=== PATIENT | male | born 1970 | race Two or more races ===

== ENCOUNTER 2020-05-29 19:55 | Emergency (ER) | payer OTHER, SELFPAY ==
[2020-05-29 20:09] VITALS: BP 153/90; PULSE 102; RESP 18; TEMP 36.9; O2SAT 99; BMI 26.4
[2020-05-29 21:14] VITALS: BP 127/85; PULSE 93; RESP 16; O2SAT 99
[2020-05-29 21:23] LABS: Glucose Urine UA NEG (NEG); Leukocyte Esterase Urine NEG (NEG); Nitrite Urine NEG (NEG); Specific Gravity - Urine 1.015 (1.005-1.025); Urine Blood TRACE (NEG); Urine Ketones NEG (NEG); Urine Protein NEG (NEG-TRACE)
--- NOTE | 2020-05-29 21:36 | ED_ITS ---
HPI - Male Genitourinary General Chief complaint: Abdominal Pain Stated complaint: groin pain Time Seen by Provider: 05/29/20 21:36 History of Present Illness HPI Narrative: This is a 49-year-old male who presents with 2-3 days of suprapubic discomfort not associated with penile discharge, fevers, chills, nausea, vomiting, scrotal discomfort, changes in urinary stream, or diarrhea. In addition, patient denies any history of diverticulosis or diverticulitis. Related Data Home Medications Medication Instructions Recorded Confirmed aspirin 81 mg PO DAILY 05/29/20 05/29/20 ezetimibe 10 mg PO DAILY 05/29/20 05/29/20 pravastatin 40 mg PO DAILY 05/29/20 05/29/20 Allergies Allergy/AdvReac Type Severity Reaction Status Date / Time rosuvastatin [Crestor] Allergy Unknown myalgias Verified 08/31/18 00:00 Review of Systems Review of Systems: Pertinent positives and negatives as stated in HPI 10 point review of systems is otherwise negative. [facility] Past Medical History Source: nursing notes reviewed Medical History High cholesterol Social History Social History Alcohol intake: never Smoking Status: Never smoker Use of substances other than those prescribed or required for medical reasons: No Advance Directives: No Advance Directives Information Provided: No Physical Exam Vital Signs: Vital Signs: Vital Signs Temp Pulse Resp BP Pulse Ox 05/29/20 22:39 98.2 F 95 18 124/80 98 05/29/20 21:14 93 16 127/85 99 05/29/20 20:09 98.5 F 102 H 18 153/90 H 99 Body Mass Index 26.4 VITAL SIGNS: Reviewed. GENERAL: Well developed, well nourished, in no acute distress. HEAD: Normocephalic/atraumatic, EYES: PERRLA, EOMI intact without pain, no nystagmus/pallor/icterus noted EARS: Ext canals without abnormality, TMs non-bulging and non-erythematous NOSE: Nares patent bilateral OROPHARYNX: no oral lesions noted, posterior pharynx clear and non-erythematous without noted tonsillar enlargement/erythema/exudates NECK: Supple, no adenopathy LUNGS: Normal breath sounds. No adventitious sounds or accessory muscle use. SpO2<99%> CARDIOVASCULAR: Regular rate and rhythm without noted murmurs, no JVD or lower extremity edema. ABDOMEN: Soft, non-tender, non-distended with bowel sounds. No rigidity. No guarding. No palpable masses or hernias noted MUSCULOSKELETAL: No tenderness, deformities, or effusions noted on gross inspection. EXTREMITIES: No cyanosis, clubbing or edema. SKIN: Inspection of the skin reveals no rashes, ulcerations, jaundice, pallor, or petechiae. NEUROLOGIC: Alert and oriented x 4. Strength and sensation to light touch were grossly intact x 4. Course Course Course Narrative: this is a 49-year-old male with history and clinical presentation suggestive of possible cystitis but doubt STI or intra-abdominal infection. On review of urinalysis it was negative for any evidence of infection and lab work was correspondingly negative for any acute findings as well. All results and findings were discussed with the patient at bedside and he was encouraged to follow up with his primary care provider for further outpa tient evaluation. [facility] - Male Genitourinary Lab Data Result diagrams: 05/29/20 22:45 05/29/20 22:45 Labs: Lab Results 05/29/20 05/29/20 05/29/20 Range/Units 21:15 22:45 22:45 WBC 9.2 (4.8-10.8) X10*3/uL RBC 5.44 (4.60-5.80) X10*6/uL Hgb 14.4 (14.0-18.0) g/dl Hct 44.4 (42-52) % MCV 81.6 (80-98) fL MCH 26.5 L (27.0-33.0) pg MCHC 32.4 (31.0-36.0) g/dl RDW 14.5 (11.0-16.0) % Plt Count 215 (160-400) X10*3/uL MPV 11.0 (9.4-12.4) fL Immature Gran % (Auto) 0.2 (0.0-0.4) % Neut % (Auto) 53.6 (45-73) % Lymph % (Auto) 33.7 (20-40) % Clark % (Auto) 8.7 (2-11) % Eos % (Auto) 3.4 (0-4) % Baso % (Auto) 0.4 (0-2) % Lymph # (Auto) 3.1 (1.2-4.9) X10*3/uL Clark # (Auto) 0.8 (0.1-1.2) X10*3/uL Eos # (Auto) 0.3 (0.0-0.4) X10*3/uL Baso # (Auto) 0.0 (0.0-0.2) X10*3/uL Abs Immat Gran (auto) 0.02 (0.00-0.03) X10*3/uL Absolute Neuts (auto) 4.9 (2.0-8.3) X10*3/uL Absolute Nucleated RBC 0.000 (0.0-0.012) X10*3/uL Nucleated RBC % (auto) 0.0 (0.0-0.2) /100WBC Sodium 140 (135-145) mmol/L Potassium 4.2 (3.3-5.1) mmol/l Chloride 104 (96-108) mmol/L Carbon Dioxide 30 H (22-29) mmol/L Anion Gap 10 L (12-20) BUN 12 (9-16) mg/dL Creatinine 0.93 (0.5-1.4) mg/dL Estim Creat Clear Calc 101.2 Estimated GFR > 60 Random Glucose 112 (60-115) mg/dL Calcium 9.5 (8.4-10.2) mg/dL Total Bilirubin 0.2 (0.0-1.0) mg/dL AST 25 (5-37) U/L ALT 33 (0-40) U/L Alkaline Phosphatase 116 (39-117) U/L Total Protein 7.1 (6.5-8.0) g/dL Albumin 4.4 (3.5-5.0) g/dL Urine Color YELLOW Urine Appearance CLEAR Urine pH 6.0 (5.0-8.0) Ur Specific [place] 1.015 (1.005-1.025) Urine Protein NEG (NEG-TRACE) MG/DL Urine Glucose (UA) NEG (NEG) MG/DL Urine Ketones NEG (NEG) MG/DL Urine Blood TRACE (NEG) Urine Nitrite NEG (NEG) Ur Leukocyte Esterase NEG (NEG) Urine RBC 0-2 (0) /HPF Urine WBC 0 (0-4) /HPF Ur Squamous Epith Cells NONE /LPF Urine Bacteria NONE /LPF Discharge Plan Discharge Clinical Impression: Abdominal discomfort Patient Disposition: Home, Self-Care Additional Instructions: The patient and/or family acknowledge understanding of results (as applicable), diagnosis, treatment plan, need for follow up, and symptoms that should prompt a return to the emergency room. Prescriptions: No Action pravastatin 40 mg tablet 40 mg PO DAILY RF: 0 aspirin 81 mg Tablet 81 mg PO DAILY RF: 0 ezetimibe 10 mg tablet 10 mg PO DAILY RF: 0 Referrals: Harinder Fuller MD [Primary Care Provider] - 2 days ( for further evaluation management of suprapubic discomfort)
[2020-05-29 21:47] LABS: Appearance Urine CLEAR; Color Urine YELLOW; RBC Urine 0-2 /HPF (0); WBC Urine 0 /HPF (0-4)
[2020-05-29 22:39] VITALS: BP 124/80; PULSE 95; RESP 18; TEMP 36.8; O2SAT 98
[2020-05-29 22:58] LABS: MANUAL DIFF FLAG NO
[2020-05-29 23:00] LABS: Basophils Percent Auto 0.4 % (0-2); Eosinophils Absolute Auto 0.3 X10*3/uL (0.0-0.4); Eosinophils Percent Auto 3.4 % (0-4); Hematocrit 44.4 % (42-52); Hemoglobin 14.4 g/dl (14.0-18.0); Imm Gran Abs Auto 0.02 X10*3/uL (0.00-0.03); Imm Gran Pct Auto 0.2 % (0.0-0.4); Lymphocytes Absolute Auto 3.1 X10*3/uL (1.2-4.9); Lymphocytes Percent Auto 33.7 % (20-40); Mean Corpuscular HGB Conc 32.4 g/dl (31.0-36.0); Mean Corpuscular Hemoglobin 26.5 pg (27.0-33.0); Mean Corpuscular Volume 81.6 fL (80-98); Monocytes Absolute Auto 0.8 X10*3/uL (0.1-1.2); Monocytes Percent Auto 8.7 % (2-11); Neutrophils Absolute Auto 4.9 X10*3/uL (2.0-8.3); Neutrophils Percent Auto 53.6 % (45-73); Platelet Count 215 X10*3/uL (160-400); Red Blood Count 5.44 X10*6/uL (4.60-5.80); Red Cell Distribution Width 14.5 % (11.0-16.0); White Blood Count 9.2 X10*3/uL (4.8-10.8)
[2020-05-29 23:23] LABS: Alanine Aminotransferase 33 U/L (0-40); Albumin Level 4.4 g/dL (3.5-5.0); Alkaline Phosphatase 116 U/L (39-117); Anion Gap 10 (12-20); Aspartate Amino Transferase 25 U/L (5-37); Bilirubin Total 0.2 mg/dL (0.0-1.0); Blood Urea Nitrogen 12 mg/dL (9-16); Calcium 9.5 mg/dL (8.4-10.2); Carbon Dioxide 30 mmol/L (22-29); Chloride 104 mmol/L (96-108); Creatinine Clr Calc Pharmacy 101.2; Estimated Glomerular Filt Rate > 60; Glucose Random 112 mg/dL (60-115); Potassium 4.2 mmol/l (3.3-5.1); Sodium 140 mmol/L (135-145); Total Protein 7.1 g/dL (6.5-8.0)
== END 2020-05-30 00:08 | disposition home or self-care (01) ==
PROVIDERS: Emergency Provider Student in an Organized Health Care Education/Training Program; PCP Internal Medicine
DX: R10.9 Unspecified abdominal pain (principal); R36.9 Urethral discharge, unspecified; Z79.899 Other long term (current) drug therapy
CPT/HCPCS: 36415; 80053; 81001; 85025; 99283; 99284

== ENCOUNTER 2020-06-08 06:37 | Outpatient (REF) | payer OTHER, SELFPAY ==
[2020-06-08 07:01] LABS: MANUAL DIFF FLAG NO
[2020-06-08 07:04] LABS: Basophils Percent Auto 0.3 % (0-2); Eosinophils Absolute Auto 0.4 X10*3/uL (0.0-0.4); Hematocrit 44.9 % (42-52); Hemoglobin 14.6 g/dl (14.0-18.0); Imm Gran Abs Auto 0.04 X10*3/uL (0.00-0.03); Imm Gran Pct Auto 0.4 % (0.0-0.4); Lymphocytes Absolute Auto 3.4 X10*3/uL (1.2-4.9); Mean Corpuscular HGB Conc 32.5 g/dl (31.0-36.0); Mean Corpuscular Hemoglobin 26.5 pg (27.0-33.0); Mean Corpuscular Volume 81.6 fL (80-98); Mean Platelet Volume 10.5 fL (9.4-12.4); Monocytes Absolute Auto 0.7 X10*3/uL (0.1-1.2); Monocytes Percent Auto 7.7 % (2-11); Neutrophils Absolute Auto 4.5 X10*3/uL (2.0-8.3); Neutrophils Percent Auto 49.6 % (45-73); Platelet Count 210 X10*3/uL (160-400); Red Cell Distribution Width 14.3 % (11.0-16.0)
[2020-06-08 07:29] LABS: Alanine Aminotransferase 28 U/L (0-40); Albumin Level 4.1 g/dL (3.5-5.0); Alkaline Phosphatase 106 U/L (39-117); Anion Gap 12 (12-20); Aspartate Amino Transferase 21 U/L (5-37); Bilirubin Total 0.5 mg/dL (0.0-1.0); Blood Urea Nitrogen 18 mg/dL (9-16); Calcium 8.5 mg/dL (8.4-10.2); Carbon Dioxide 26 mmol/L (22-29); Chloride 104 mmol/L (96-108); Cholesterol 162 mg/dL; Estimated Glomerular Filt Rate > 60; Glucose Fasting 106 mg/dL (60-99); HDL Cholesterol 30 mg/dL; LDL Cholesterol Calculated 79 mg/dl; Potassium 4.1 mmol/l (3.3-5.1); Sodium 138 mmol/L (135-145); Total Protein 6.6 g/dL (6.5-8.0); Triglycerides 267 mg/dL
[2020-06-08 07:46] LABS: Glucose Urine UA NEG (NEG); Leukocyte Esterase Urine NEG (NEG); Nitrite Urine NEG (NEG); Specific Gravity - Urine 1.025 (1.005-1.025); UACC Culture Trigger NO; Urine Blood TRACE (NEG); Urine Ketones NEG (NEG); Urine Protein NEG (NEG-TRACE)
[2020-06-08 07:48] LABS: Appearance Urine CLEAR; Color Urine YELLOW
[2020-06-08 07:52] LABS: Prostate Specific Antigen 1.54 ng/mL (<0.05-4.0); TSH reflex Free T4 1.84 mIU/mL (0.32-4.0)
[2020-06-08 08:39] LABS: Mucus Urine 1+ /LPF; Squamous Epithelial Cell Urine TRACE /LPF; WBC Urine 0-2 /HPF (0-4)
== END 2020-06-08 06:38 | disposition home or self-care (01) ==
LOC: HO.LAB 06:37
PROVIDERS: PCP Internal Medicine; Visit Provider Internal Medicine
DX: Z00.00 Encounter for general adult medical examination without abnormal findings (principal); E78.00 Pure hypercholesterolemia, unspecified; R03.0 Elevated blood-pressure reading, without diagnosis of hypertension
CPT/HCPCS: 36415; 80053; 80061; 81001; 81003; 84153; 84443; 85025

== ENCOUNTER 2020-07-18 09:41 | Outpatient (REF) | payer OTHER, SELFPAY ==
--- NOTE | 2020-07-18 10:19 | XR_ITS ---
EXAMINATION: XR FOOT, BILATERAL CLINICAL INFORMATION: Pain in both feet with tenderness. COMPARISON: None TECHNIQUE: Three views right foot. Three views left foot. FINDINGS: RIGHT FOOT: There is a small calcaneal heel and moderate retrocalcaneal enthesophyte spur. The ankle mortise and subtalar joints are normal. No visible acute fracture, dislocation or subluxation seen. The soft tissues are normal. LEFT FOOT: There is no visible acute fracture or dislocation. There are tiny calcaneal heel and a moderate retrocalcaneal enthesophyte is seen. The ankle mortise and subtalar joints are normal. No abnormality is seen involving the metatarsals where the arrow points to. The soft tissues are unremarkable. XR/XR foot RT 2V IMPRESSION: Bilateral moderate retrocalcaneal enthesophytes and small calcaneal heel spurs. There is no visible fracture, dislocation or subluxation. There is no abnormality involving the metatarsals in either foot. The soft tissues are normal. If the patient has specific pain in the metatarsal region and if related to stress fracture, a three-phase bone scan can be performed.
--- NOTE | 2020-07-18 10:19 | XR_ITS ---
EXAMINATION: XR FOOT, BILATERAL CLINICAL INFORMATION: Pain in both feet with tenderness. COMPARISON: None TECHNIQUE: Three views right foot. Three views left foot. FINDINGS: RIGHT FOOT: There is a small calcaneal heel and moderate retrocalcaneal enthesophyte spur. The ankle mortise and subtalar joints are normal. No visible acute fracture, dislocation or subluxation seen. The soft tissues are normal. LEFT FOOT: There is no visible acute fracture or dislocation. There are tiny calcaneal heel and a moderate retrocalcaneal enthesophyte is seen. The ankle mortise and subtalar joints are normal. No abnormality is seen involving the metatarsals where the arrow points to. The soft tissues are unremarkable. XR/XR foot LT min 3V IMPRESSION: Bilateral moderate retrocalcaneal enthesophytes and small calcaneal heel spurs. There is no visible fracture, dislocation or subluxation. There is no abnormality involving the metatarsals in either foot. The soft tissues are normal. If the patient has specific pain in the metatarsal region and if related to stress fracture, a three-phase bone scan can be performed.
[2020-07-18 10:50] LABS: MANUAL DIFF FLAG NO
[2020-07-18 10:56] LABS: Basophils Absolute Auto 0.1 X10*3/uL (0.0-0.2); Basophils Percent Auto 0.7 % (0-2); Eosinophils Absolute Auto 0.4 X10*3/uL (0.0-0.4); Hematocrit 44.6 % (42-52); Hemoglobin 14.5 g/dl (14.0-18.0); Imm Gran Abs Auto 0.02 X10*3/uL (0.00-0.03); Imm Gran Pct Auto 0.2 % (0.0-0.4); Lymphocytes Absolute Auto 2.9 X10*3/uL (1.2-4.9); Lymphocytes Percent Auto 35.1 % (20-40); Mean Corpuscular HGB Conc 32.5 g/dl (31.0-36.0); Mean Corpuscular Hemoglobin 26.5 pg (27.0-33.0); Mean Corpuscular Volume 81.5 fL (80-98); Mean Platelet Volume 11.5 fL (9.4-12.4); Monocytes Absolute Auto 0.6 X10*3/uL (0.1-1.2); Neutrophils Absolute Auto 4.3 X10*3/uL (2.0-8.3); Platelet Count 214 X10*3/uL (160-400); Red Blood Count 5.47 X10*6/uL (4.60-5.80); White Blood Count 8.2 X10*3/uL (4.8-10.8)
[2020-07-18 11:06] LABS: Glucose Urine UA NEG (NEG); Leukocyte Esterase Urine NEG (NEG); Nitrite Urine NEG (NEG); PH 5.5 (5.0-8.0); Specific Gravity - Urine 1.025 (1.005-1.025); Urine Blood TRACE (NEG); Urine Ketones NEG (NEG); Urine Protein NEG (NEG-TRACE)
[2020-07-18 11:15] LABS: Appearance Urine CLEAR; Color Urine YELLOW
[2020-07-18 11:19] LABS: RBC Urine 0-2 /HPF (0); Squamous Epithelial Cell Urine TRACE /LPF; WBC Urine 0-2 /HPF (0-4)
[2020-07-18 11:22] LABS: Alanine Aminotransferase 28 U/L (0-40); Albumin Level 4.2 g/dL (3.5-5.0); Alkaline Phosphatase 102 U/L (39-117); Anion Gap 13 (12-20); Aspartate Amino Transferase 20 U/L (5-37); Bilirubin Total 0.6 mg/dL (0.0-1.0); Blood Urea Nitrogen 16 mg/dL (9-16); Calcium 9.1 mg/dL (8.4-10.2); Carbon Dioxide 24 mmol/L (22-29); Chloride 104 mmol/L (96-108); Cholesterol 168 mg/dL; Estimated Glomerular Filt Rate > 60; Glucose Fasting 104 mg/dL (60-99); HDL Cholesterol 34 mg/dL; LDL Cholesterol Calculated 78 mg/dl; Potassium 4.3 mmol/l (3.3-5.1); Sodium 137 mmol/L (135-145); Total Protein 6.7 g/dL (6.5-8.0); Triglycerides 284 mg/dL
[2020-07-18 11:42] LABS: Prostate Specific Antigen Scr 1.53 ng/mL (<0.05-4.0)
[2020-07-18 11:52] LABS: Erythrocyte Sedimentation Rate 9 MM/HR (0-15)
[2020-07-18 13:17] LABS: Folate 19.1 ng/mL (> or = 4.0); Vitamin B12 663 pg/mL (200-900)
== END 2020-07-18 09:42 | disposition home or self-care (01) ==
LOC: HO.LAB 09:41
PROVIDERS: PCP Internal Medicine; Visit Provider Internal Medicine
DX: M79.671 Pain in right foot (principal); M79.672 Pain in left foot; Z00.00 Encounter for general adult medical examination without abnormal findings; J30.9 Allergic rhinitis, unspecified; F17.200 Nicotine dependence, unspecified, uncomplicated; E78.00 Pure hypercholesterolemia, unspecified; E66.3 Overweight
CPT/HCPCS: 36415; 73620; 73630; 80053; 80061; 81001; 81003; 82607; 82746; 84153; 84443; 85025; 85652

== ENCOUNTER → 2020-08-25 13:29 | Outpatient (BNVA) | payer OTHER, SELFPAY | PROVIDERS: PCP Internal Medicine; Visit Provider Nurse Practitioner Family | DX: Z76.89 Persons encountering health services in other specified circumstances (principal) ==

== ENCOUNTER 2020-10-24 07:46 | Day surgery (SDC) | payer OTHER, SELFPAY ==
[2020-10-18 11:10] VITALS: BMI 27.1
--- NOTE | 2020-10-23 09:55 | HO.ANESPROP2 ---
Documented by User: Sparkle Curry 10/23/20 09:56 HPI - Anesthesia Eval Consult details Narrative: 49yo M for Colonoscopy PMFSH Active Problems Active Problems: All Active Problems (Updated 07/14/20 @ 04:21 by Harinder Fuller MD) Pain in both feet (Acute) Insomnia (Acute) Overweight (BMI 25.0-29.9) (Acute) Smoker (Acute) Elevated blood pressure reading (Acute) Allergic rhinitis (Acute) Pure hypercholesterolemia (Acute) Past Medical History Medical History Allergic rhinitis Elevated blood pressure reading Insomnia Overweight (BMI 25.0-29.9) Pain in both feet Pure hypercholesterolemia Smoker Family History Family History Father No problems noted. Mother No problems noted. Paternal Uncle History of stomach cancer Maternal Aunt Hx of breast cancer Son No problems noted. Surgical History Surgical History History of inguinal hernia repair History of vasectomy Hx of wisdom tooth extraction Social History Social History Household Members: Spouse and Children Alcohol intake: current Alcohol intake frequency: a few times a month Smoking Status: Current every day smoker Tobacco Type: Cigarette Cigarettes Per Day: 10 Years Smoked: 30 Smoked in Last 30 Days: Yes Use of substances other than those prescribed or required for medical reasons: No Advance Directives: No Advance Directives Information Provided: No Advance Directives on File: No Current occupational status: employed 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 [employer] Meds Allergies Allergy/AdvReac Type Severity Reaction Status Date / Time rosuvastatin [Crestor] AdvReac Intermediate myalgias Verified 10/18/20 11:08 Home Medications Medication Instructions Recorded Confirmed Last Taken Type aspirin 81 mg PO DAILY 05/29/20 10/24/20 10/21/20 History ezetimibe 10 mg PO DAILY 05/29/20 10/18/20 05/29/20 History pravastatin 40 mg PO DAILY 05/29/20 10/18/20 05/28/20 History kjcbeuewqtll-rvom-ccwzx acid 1 tab PO DAILY 10/18/20 10/18/20 Unknown History [Centrum] Exam Exam Date and Time: October 23, 2020 0955 Height,Weight and Vital Signs: Height 5 ft 11 in Weight 88.451 kg Assessment and Plan Assessment Anesthesia Assessment: Chart Reviewed Documented by User: Rylee Lowe 10/24/20 09:53 COUNTS INCLUDE 234 BEDS AT THE [facility] Past Medical History Medical History Allergic rhinitis Elevated blood pressure reading Insomnia Overweight (BMI 25.0-29.9) Pain in both feet Pure hypercholesterolemia Smoker Family History Family History Father No problems noted. Mother No problems noted. Paternal Uncle History of stomach cancer Maternal Aunt Hx of breast cancer Son No problems noted. Surgical History Surgical History History of inguinal hernia repair History of vasectomy Hx of wisdom tooth extraction Social History Social History Household Members: Spouse and Children Alcohol intake: current Alcohol intake frequency: a few times a month Smoking Status: Current every day smoker Tobacco Type: Cigarette Cigarettes Per Day: 10 Years Smoked: 30 Smoked in Last 30 Days: Yes Use of substances other than those prescribed or required for medical reasons: No Advance Directives: No Advance Directives Information Provided: No Advance Directives on File: No Current occupational status: employed 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
[2020-10-24 09:14] VITALS: BP 131/79; PULSE 80; RESP 16; TEMP 36.3; O2SAT 99
[2020-10-24] MEDS: Lactated Ringers 1,000 ML 100 ML IVCONT (09:18)
--- NOTE | 2020-10-24 09:39 | MHC.SHP ---
Pre-Procedural Eval Section B Chief Complaint: Screening Details of Present Illness: Colon cancer screening Has had Moderna Covid 19 vaccine both shots. Relevant Family History (Specify if Yes): No Relevant Social History: None Present Medications: see Short Stay Collaborative assessment Medical History: Significant History (Hyperlipidemia) History of Previous Operations: Relevant previous surgery/procedure and date(s) (Inguinal hernia surgery) Allergies: Allergies Allergy/AdvReac Type Severity Reaction Status Date / Time rosuvastatin [Crestor] AdvReac Intermediate myalgias Verified 10/18/20 11:08 Review of Systems Sugical H&P ROS: Negative: Constitution, Cardiovascular, Respiratory, Gastrointestinal and Musculoskeletal Exam Surgical H&P Exam: Normal: HEENT, Normal: Heart, Normal: Lungs, Normal: Extremities, Normal: Abdomen, Normal: Skin and Normal: Neurological Plan Diagnosis/Plan: Unchanged I have reviewed the history and physical and performed a pertinent physical examination on my patient. No changes have occurred unless specified.yes
[2020-10-24 10:07] VITALS: BP 109/68; PULSE 75; RESP 16; TEMP 36.8; O2SAT 98
--- NOTE | 2020-10-24 10:07 | PM.OP ---
Brief Operative Note Date of Service: 10/24/20 Pre-op diagnosis: COLON CANCER SCREENING #1 Post-op diagnosis: other (POLYPS; 1+ INTERNAL HEMORRHOIDS) Procedure: COLONOSCOPY WITH EXCISIONAL POLYPECTOMIES X 2; COLD BX FORCEPS Implants: NONE Surgeon: Darlin Minor MD Anesthesia: MAC (SOVAGO) Estimated blood loss (mL): 5 Pathology: other (HEPATIC FLEXURE, DISTAL TRANSVERSE COLON) Condition: stable Disposition: PACU
[2020-10-24 10:22] VITALS: BP 125/80; PULSE 76; RESP 18; O2SAT 99
--- NOTE | 2020-10-24 12:45 | HO.POSTANES ---
Post Anesthesia Evaluation Post Anesthesia Evaluation Vital Signs: Vital Signs Temp Pulse Resp BP Pulse Ox 10/24/20 10:22 76 18 125/80 99 10/24/20 10:07 98.2 F 75 16 109/68 98 10/24/20 09:14 97.4 F 80 16 131/79 99 Anesthesia: Monitored Mental Status: Awake Pain Control: Satisfactory Nausea/Vomiting: None Hydration: Adequate Anesthesia-Related Issues: No Anes. Related Issues
--- NOTE | 2020-10-24 15:07 | P.CONAN_ITS ---
[facility] Active Problems Active Problems: All Active Problems (Updated 07/14/20 @ 04:21 by Harinder price MD) Pain in both feet (Acute) Insomnia (Acute) Overweight (BMI 25.0-29.9) (Acute) Smoker (Acute) Elevated blood pressure reading (Acute) Allergic rhinitis (Acute) Pure hypercholesterolemia (Acute) Past Medical History Medical History Allergic rhinitis Elevated blood pressure reading Insomnia Overweight (BMI 25.0-29.9) Pain in both feet Pure hypercholesterolemia Smoker Family History Family History Father No problems noted. Mother No problems noted. Paternal Uncle History of stomach cancer Maternal Aunt Hx of breast cancer Son No problems noted. 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[employer] Meds Allergies Allergy/AdvReac Type Severity Reaction Status Date / Time rosuvastatin [Crestor] AdvReac Intermediate myalgias Verified 10/18/20 11:08 Home Medications Medication Instructions Recorded Confirmed Last Taken Type aspirin 81 mg PO DAILY 05/29/20 10/24/20 10/21/20 History ezetimibe 10 mg PO DAILY 05/29/20 10/18/20 05/29/20 History pravastatin 40 mg PO DAILY 05/29/20 10/18/20 05/28/20 History cqzgbrqsljno-mqga-qwbmo acid 1 tab PO DAILY 10/18/20 10/18/20 Unknown History [Centrum] Exam Exam Date and Time: October 24, 2020 1507 Height,Weight and Vital Signs: Height 5 ft 11 in Weight 88.451 kg Last Vital Signs Temp 98.2 F 10/24/20 10:07 Pulse 76 10/24/20 10:22 Resp 18 10/24/20 10:22 BP 125/80 10/24/20 10:22 Pulse Ox 99 10/24/20 10:22 Airway Mallampati Class: II TM Dist: >3cm Neck ROM: Full Heart: RRR Lungs: CTA
--- NOTE | 2020-10-29 13:17 | W.PM.OPN ---
Operative Note Operative Note Date of Service: 10/24/20 Narrative: Pre-op diagnosis: COLON CANCER SCREENING #1 Post-op diagnosis: COLON POLYPS; 1+ INTERNAL HEMORRHOIDS Procedure: COLONOSCOPY WITH EXCISIONAL POLYPECTOMIES X 2; COLD BX FORCEPS Implants: NONE Surgeon: Darlin Minor MD Anesthesia: MAC (SOVAGO) FINDINGS: RENETTA:Prostate normal to digital palpation. Adult slim colonoscope was introduced without difficulty. Scope was navigated through rectosigmoid, descending, transverse, and ascending colon down into the cecum. Appendiceal orifice and ileocecal valve were seen. PREP: GOOD to EXCELLENT. Scope was slowly withdrawn. Diminutive polyp was removed from Hepatic Flexure and the second from the region of the distal transverse colon. No additional lesions were identified. ARV was clear. 1+Internal Hemorrhoids noted as scope was removed. Estimated blood loss (mL): 5 Pathology: other (HEPATIC FLEXURE-TUBULAR ADENOMA; DISTAL TRANSVERSE COLON--LYMPHOID TISSUE) Condition: stable Disposition: PACU PLAN: REPEAT SCREENING IN 5 YEARS--1 TUBULAR ADENOMA.
== END 2020-10-24 11:05 | disposition home or self-care (01) ==
PROVIDERS: PCP Internal Medicine; Visit Provider Internal Medicine Gastroenterology
PROC: 0DJD8ZZ Inspection of Lower Intestinal Tract, Via Natural or Artificial Opening Endoscopic (ICD-10-PCS; CPT 45378; principal; 2020-10-24 09:20)
DX: Z12.11 Encounter for screening for malignant neoplasm of colon (principal); D12.3 Benign neoplasm of transverse colon; K64.8 Other hemorrhoids; J30.9 Allergic rhinitis, unspecified; R03.0 Elevated blood-pressure reading, without diagnosis of hypertension; Z79.899 Other long term (current) drug therapy; Z79.82 Long term (current) use of aspirin; Z88.8 Allergy status to other drugs, medicaments and biological substances; F17.210 Nicotine dependence, cigarettes, uncomplicated
CPT/HCPCS: 45380; 88305

== ENCOUNTER → 2020-11-14 13:34 | Outpatient (BNVA) | payer OTHER, SELFPAY | PROVIDERS: PCP Internal Medicine; Visit Provider Nurse Practitioner Family ==

== ENCOUNTER 2021-03-30 07:59 | Outpatient (REF) | payer OTHER, SELFPAY ==
[2021-03-30 08:42] LABS: MANUAL DIFF FLAG NO
[2021-03-30 09:14] LABS: Basophils Absolute Auto 0.1 X10*3/uL (0.0-0.2); Basophils Percent Auto 0.7 % (0-2); Eosinophils Absolute Auto 0.4 X10*3/uL (0.0-0.4); Eosinophils Percent Auto 4.2 % (0-4); Hemoglobin 14.7 g/dl (14.0-18.0); Imm Gran Abs Auto 0.03 X10*3/uL (0.00-0.03); Imm Gran Pct Auto 0.3 % (0.0-0.4); Lymphocytes Absolute Auto 3.3 X10*3/uL (1.2-4.9); Lymphocytes Percent Auto 35.7 % (20-40); Mean Corpuscular Hemoglobin 25.9 pg (27.0-33.0); Mean Platelet Volume 10.8 fL (9.4-12.4); Monocytes Absolute Auto 0.7 X10*3/uL (0.1-1.2); Monocytes Percent Auto 7.2 % (2-11); Neutrophils Absolute Auto 4.7 X10*3/uL (2.0-8.3); Neutrophils Percent Auto 51.9 % (45-73); Platelet Count 207 X10*3/uL (160-400); Red Blood Count 5.68 X10*6/uL (4.60-5.80); Red Cell Distribution Width 14.5 % (11.0-16.0); White Blood Count 9.1 X10*3/uL (4.8-10.8)
[2021-03-30 09:21] LABS: Glucose Urine UA NEG (NEG); Leukocyte Esterase Urine NEG (NEG); Nitrite Urine NEG (NEG); Specific Gravity - Urine 1.025 (1.005-1.025); Urine Blood NEG (NEG); Urine Ketones NEG (NEG); Urine Protein NEG (NEG-TRACE)
[2021-03-30 09:35] LABS: Appearance Urine CLEAR; Color Urine YELLOW
[2021-03-30 09:37] LABS: Alanine Aminotransferase 31 U/L (0-40); Albumin Level 4.3 g/dL (3.5-5.0); Alkaline Phosphatase 95 U/L (39-117); Anion Gap 13 (12-20); Aspartate Amino Transferase 22 U/L (5-37); Bilirubin Total 0.5 mg/dL (0.0-1.0); Blood Urea Nitrogen 15 mg/dL (9-16); Calcium 9.4 mg/dL (8.4-10.2); Carbon Dioxide 23 mmol/L (22-29); Chloride 108 mmol/L (96-108); Cholesterol 176 mg/dL; Estimated Glomerular Filt Rate > 60; Glucose Fasting 99 mg/dL (60-99); HDL Cholesterol 31 mg/dL; LDL Cholesterol Calculated 107 mg/dl; Potassium 4.3 mmol/L (3.3-5.1); Sodium 140 mmol/L (135-145); Total Protein 6.8 g/dL (6.5-8.0); Triglycerides 190 mg/dL
== END 2021-03-30 08:00 | disposition home or self-care (01) ==
LOC: HO.LAB 07:59
PROVIDERS: PCP Internal Medicine; Visit Provider Internal Medicine
DX: I10 Essential (primary) hypertension (principal); E78.00 Pure hypercholesterolemia, unspecified
CPT/HCPCS: 36415; 80053; 80061; 81003; 84443; 85025

== ENCOUNTER 2021-05-16 12:05 | Outpatient (REF) | payer OTHER, SELFPAY ==
--- NOTE | ~2021-05-16 | XR_ITS ---
EXAMINATION: XR SHOULDER, LEFT CLINICAL INFORMATION: Anesthesia of skin. COMPARISON: None TECHNIQUE: AP external rotation, Grashey, scapular Y, and axillary views of the left shoulder. FINDINGS: Bony alignment and mineralization are normal. The glenohumeral joint is intact. There is peripheral osteophyte formation of the inferior articular margin of the glenohumeral joint. The acromioclavicular and coracoclavicular intervals are normal. There is no fracture or dislocation. No soft tissue calcifications or foreign body is seen. There is no left pneumothorax. 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 No fracture or dislocation is seen.
== END 2021-05-16 12:06 | disposition home or self-care (01) ==
LOC: HO.XRAY 12:05
PROVIDERS: PCP Internal Medicine; Visit Provider Internal Medicine
DX: R20.0 Anesthesia of skin (principal)
CPT/HCPCS: 73030

== ENCOUNTER → 2021-06-05 13:26 | Outpatient (BNVA) | payer OTHER, SELFPAY | PROVIDERS: Visit Provider Nurse Practitioner Family ==

== ENCOUNTER 2021-06-27 17:12 | Emergency (ER) | payer OTHER, SELFPAY ==
--- NOTE | ~2021-06-27 | XR_ITS ---
EXAMINATION: XR CHEST CLINICAL INFORMATION: Cough with lung pain COMPARISON: Single view chest 12/21/2017 TECHNIQUE: 2 views of the chest were obtained. FINDINGS: No significant abnormality is noted involving the heart, lungs, mediastinum, bony thorax or soft tissues. XR/XR chest 2V IMPRESSION: Unremarkable examination.
[2021-06-27 17:41] VITALS: BP 151/77; PULSE 89; RESP 20; TEMP 36.8; O2SAT 97; BMI 25.7
--- NOTE | 2021-06-27 18:31 | ECG_ITS ---
Test Reason : dyspena Blood Pressure : / mmHG Vent. Rate : 084 BPM Atrial Rate : 084 BPM P-R Int : 154 ms QRS Dur : 096 ms QT Int : 374 ms P-R-T Axes : 042 056 070 degrees QTc Int : 441 ms Normal sinus rhythm Normal ECG When compared with ECG of 21-DEC-2017 17:00, No significant change was found Referred By: Sushma Pike Electronically Signed By:BONG HOYOS MD
--- NOTE | 2021-06-27 18:39 | ED.SOB ---
HPI - SOB/Dyspnea General Chief Complaint: Dyspnea Stated Complaint: ? brochitis Time Seen by Provider: 06/27/21 18:30 Source: patient Mode of arrival: ambulatory Limitations: no limitations History of Present Illness HPI Narrative: 50-year-old male with a history hypertension, hyperlipidemia, active smoker, allergic rhinitis, insomnia who presents to the ER with 3 days of cough, shortness of breath and stabbing lung pain. He reports 2 nights ago he had such bad coughing fits he needed to go sleep on the couch with his head raised on 2 pillows. He has no phlegm production. He has no fever or chills. He is fully vaccinated against COVID-19. His [id number] has similar symptoms. He reports his stabbing pains in his chest are when he takes deep breaths and knees. None at rest. No diaphoresis, nausea, radiation of the chest pain. MD elicited complaint: shortness of breath, cough and chest pain Onset (ago): day(s) (3) Context: recent illness Timing: intermittent Severity: moderate Exacerbating factors: movement, coughing and deep breaths Relieving factors: rest Associated symptoms: chest pain, pain with inspiration and cough Treatment prior to arrival: none Related Data Home oxygen amount: none Home Medications Medication Instructions Recorded Confirmed aspirin 81 mg tablet 81 mg PO DAILY 05/29/20 05/16/21 multivitamin-ferrous 1 tab PO DAILY 10/18/20 05/16/21 fumarate-folic acid 18 mg-400 mcg tablet (Centrum) Previous Rx's Medication Instructions Recorded methylcellulose (laxative) 500 mg 500 mg PO DAILY #30 tab 11/14/20 tablet (Citrucel) psyllium seed (sugar) oral powder 1 tbsp PO DAILY #1254 g 01/16/21 (Metamucil (sugar)) pravastatin 40 mg tablet 40 mg PO DAILY #90 tab 05/16/21 ezetimibe 10 mg tablet 10 mg PO DAILY #90 tab 06/05/21 omeprazole 20 mg capsule,delayed 20 mg PO DAILY #30 cap 06/05/21 release azithromycin 250 mg tablet See Rx Instructions .ROUTE 06/27/21 (Zithromax Z-Gabriel) .COMPLEX #6 tab hydrocodone-homatropine 5 mg-1.5 5 ml PO Q6H PRN #60 ml 06/27/21 mg/5 mL oral syrup (Hycodan (with homatropine)) ibuprofen 600 mg tablet 600 mg PO Q8H PRN #20 tab 06/27/21 prednisone 20 mg tablet 40 mg PO DAILY #10 tab 06/27/21 Allergies Allergy/AdvReac Type Severity Reaction Status Date / Time rosuvastatin [Crestor] AdvReac Intermediate myalgias Verified 06/05/21 13:27 Review of Systems Review of Systems: Constitutional: No Fever, No Chills ENT/Mouth: No sore throat, No Rhinorrhea, No Swallowing Difficulty Cardiovascular: + Chest Pain, + SOB, No Orthopnea, No Edema Respiratory: + Cough, No Sputum, No Wheezing, No dyspnea Gastrointestinal: No Nausea, No Vomiting, No Diarrhea, No abdominal Pain Musculoskeletal: No joint pain, No Myalgias Skin: No Skin Lesions, No rash Neuro: No Weakness, No Numbness, No Dizziness, No Headache Psych: + Anxiety/Panic, No Depression Heme/Lymph: No Bruising, No Lymphadenopathy PMFSH Past Medical History Medical History Allergic rhinitis Elevated blood pressure reading Insomnia Overweight (BMI 25.0-29.9) Pain in both feet Pure hypercholesterolemia Smoker Tubular adenoma Surgical History History of colonoscopy History of inguinal hernia repair History of vasectomy Hx of wisdom tooth extraction Family History Family History Father No problems noted. Mother No problems noted. Paternal Uncle History of stomach cancer Maternal Aunt Hx of breast cancer Son No problems noted. 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 Oriented X3. No acute distress. Eyes: Pupils equal, round and reactive to light. ENT: Pharynx normal. Neck: Normal inspection. Neck supple. CVS: Normal heart rate and rhythm. Pulses normal. Anterior chest wall tenderness throughout. Respiratory: No respiratory distress. Breath sounds normal. Abdomen: Soft and nontender. +BS x4 Skin: Skin warm and dry. Normal skin color. Normal skin turgor. No rashes. Extremities: No lower extremity edema. No calf tenderness. Neuro: Oriented X 3. Grossly normal, nonfocal. Course Course Course Narrative: 50-year-old male with history of HTN, HLD, smoker who presents to the ER with nonproductive cough, chest pain, shortness of breath for the last 3 days. [id number] with similar complaints. He is nontoxic on arrival with their office. Labs, EKG, chest x-ray ordered. Reevaluation(s) Reevaluation #1: Chest x-ray is clear, COVID test is negative. Troponin is negative an EKG is unremarkable. His D-dimers also negative. His lab workup is reassuring. Will treat for acute bronchitis and have him follow-up with his primary care doctor. Patient agreeable with plan. MDM - SOB/Dyspnea Medical Records Attestation: I reviewed the patient's medical records. Lab Data Attestation: I reviewed the patient's lab results. Result diagrams: 06/27/21 19:00 06/27/21 19:00 Labs: Lab Results 06/27/21 06/27/21 06/27/21 Range/Units 18:53 19:00 19:00 WBC 10.3 (4.8-10.8) X10*3/uL RBC 5.37 (4.60-5.80) X10*6/uL Hgb 14.3 (14.0-18.0) g/dl Hct 43.8 (42.0-52.0) % MCV 81.6 (80.0-98.0) fL MCH 26.6 L (27.0-33.0) pg MCHC 32.6 (31.0-36.0) g/dl RDW 14.0 (11.0-16.0) % Plt Count 215 (160-400) X10*3/uL MPV 10.9 (9.4-12.4) fL Immature Gran % (Auto) 0.7 H (0.0-0.4) % Neut % (Auto) 62.0 (45-73) % Lymph % (Auto) 27.6 (20-40) % [place] % (Auto) 6.3 (2-11) % Eos % (Auto) 2.9 (0-4) % Baso % (Auto) 0.5 (0-2) % Lymph # (Auto) 2.8 (1.2-4.9) X10*3/uL [place] # (Auto) 0.7 (0.1-1.2) X10*3/uL Eos # (Auto) 0.3 (0.0-0.4) X10*3/uL Baso # (Auto) 0.1 (0.0-0.2) X10*3/uL Abs Immat Gran (auto) 0.07 H (0.00-0.03) X10*3/uL Absolute Neuts (auto) 6.4 (2.0-8.3) x10*3/uL Absolute Nucleated RBC 0.000 (0.0-0.012) X10*3/uL Nucleated RBC % (auto) 0.0 (0.0-0.2) /100WBC D-Dimer High Sensitivty < 150 NG/ML Sodium (135-145) mmol/L Potassium (3.3-5.1) mmol/L Chloride (96-108) mmol/L Carbon Dioxide (22-29) mmol/L Anion Gap (12-20) BUN (9-16) mg/dL Creatinine (0.5-1.4) mg/dL Estim Creat Clear Calc Estimated GFR Random Glucose (60-115) mg/dL Calcium (8.4-10.2) mg/dL Troponin I High Sens (<3.5-35.0) ng/L COVID-19 (LUCIANO) Negative (Negative) COVID-19 Clin Com See Note 06/27/21 06/27/21 Range/Units 19:00 19:00 WBC (4.8-10.8) X10*3/uL RBC (4.60-5.80) X10*6/uL Hgb (14.0-18.0) g/dl Hct (42.0-52.0) % MCV (80.0-98.0) fL MCH (27.0-33.0) pg MCHC (31.0-36.0) g/dl RDW (11.0-16.0) % Plt Count (160-400) X10*3/uL MPV (9.4-12.4) fL Immature Gran % (Auto) (0.0-0.4) % Neut % (Auto) (45-73) % Lymph % (Auto) (20-40) % [place] % (Auto) (2-11) % Eos % (Auto) (0-4) % Baso % (Auto) (0-2) % Lymph # (Auto) (1.2-4.9) X10*3/uL [place] # (Auto) (0.1-1.2) X10*3/uL Eos # (Auto) (0.0-0.4) X10*3/uL Baso # (Auto) (0.0-0.2) X10*3/uL Abs Immat Gran (auto) (0.00-0.03) X10*3/uL Absolute Neuts (auto) (2.0-8.3) x10*3/uL Absolute Nucleated RBC (0.0-0.012) X10*3/uL Nucleated RBC % (auto) (0.0-0.2) /100WBC D-Dimer High Sensitivty NG/ML Sodium 138 (135-145) mmol/L Potassium 4.5 (3.3-5.1) mmol/L Chloride 106 (96-108) mmol/L Carbon Dioxide 24 (22-29) mmol/L Anion Gap 13 (12-20) BUN 15 (9-16) mg/dL Creatinine 1.22 (0.5-1.4) mg/dL Estim Creat Clear Calc 78.6 Estimated GFR > 60 Random Glucose 130 H (60-115) mg/dL Calcium 9.6 (8.4-10.2) mg/dL Troponin I High Sens < 3.5 (<3.5-35.0) ng/L COVID-19 ([facility]O) (Negative) COVID-19 Clin Com ECG Data Attestation: I personally reviewed and interpreted this ECG as follows: ECG interpretation date: 06/27/21 ECG interpretation time: 19:59 Prior ECG tracings: available for review Interpretation: Normal sinus rhythm, heart rate 84 beats per minute, normal HI interval 154 MS, no ST segment elevations or depressions. Critical Care Time Critical Care Time Critical Care Time: No Discharge Plan Discharge Clinical Impression: Acute bronchitis Qualifiers: Bronchitis organism: unspecified organism Qualified Code(s): J20.9 - Acute bronchitis, unspecified Patient Disposition: Home, Self-Care Instructions: Acute Bronchitis (ED) Additional Instructions: Your chest x-ray did not show any evidence of pneumonia. Your EKG was normal and your lab workup was unremarkable. Take the prescribed antibiotics for acute bronchitis. Use the prescribed cough syrup as needed for coughing fits. This has a narcotic and and will make you sleepy, do not drive after taking this medication. Follow-up with your doctor as needed. If you develop new or worsening symptoms call 911 or come back to the ER for further evaluation. Prescriptions: New prednisone 20 mg tablet 40 mg PO DAILY Qty: 10 RF: 0 azithromycin [Zithromax Z-Gabriel] 250 mg tablet See Rx Instructions .ROUTE .COMPLEX Qty: 6 RF: 0 ibuprofen 600 mg tablet 600 mg PO Q8H PRN (Reason: pain) Qty: 20 RF: 0 hydrocodone-homatropine [Hycodan (with homatropine)] 5-1.5 mg/5 mL syrup 5 ml PO Q6H PRN (Reason: cough) Qty: 60 RF: 0 No Action Metamucil (sugar) Powder 1 tbsp PO DAILY Qty: 1254 RF: 2 aspirin 81 mg Tablet 81 mg PO DAILY RF: 0 Centrum 18-400 mg-mcg Tablet 1 tab PO DAILY RF: 0 pravastatin 40 mg tablet 40 mg PO DAILY Qty: 90 RF: 0 Citrucel 500 mg tablet 500 mg PO DAILY Qty: 30 RF: 5 omeprazole 20 mg capsule,delayed release(DR/EC) 20 mg PO DAILY Qty: 30 RF: 3 ezetimibe 10 mg tablet 10 mg PO DAILY Qty: 90 RF: 3
[2021-06-27 19:05] VITALS: BP 135/83; PULSE 86; RESP 16; TEMP 36.7; O2SAT 100
[2021-06-27 19:05] LABS: MANUAL DIFF FLAG NO
[2021-06-27 19:09] LABS: Basophils Absolute Auto 0.1 X10*3/uL (0.0-0.2); Basophils Percent Auto 0.5 % (0-2); Eosinophils Absolute Auto 0.3 X10*3/uL (0.0-0.4); Eosinophils Percent Auto 2.9 % (0-4); Hematocrit 43.8 % (42.0-52.0); Hemoglobin 14.3 g/dl (14.0-18.0); Imm Gran Abs Auto 0.07 X10*3/uL (0.00-0.03); Imm Gran Pct Auto 0.7 % (0.0-0.4); Lymphocytes Absolute Auto 2.8 X10*3/uL (1.2-4.9); Lymphocytes Percent Auto 27.6 % (20-40); Mean Corpuscular HGB Conc 32.6 g/dl (31.0-36.0); Mean Corpuscular Hemoglobin 26.6 pg (27.0-33.0); Mean Corpuscular Volume 81.6 fL (80.0-98.0); Mean Platelet Volume 10.9 fL (9.4-12.4); Monocytes Absolute Auto 0.7 X10*3/uL (0.1-1.2); Monocytes Percent Auto 6.3 % (2-11); Neutrophils Absolute Auto 6.4 x10*3/uL (2.0-8.3); Platelet Count 215 X10*3/uL (160-400); Red Blood Count 5.37 X10*6/uL (4.60-5.80); White Blood Count 10.3 X10*3/uL (4.8-10.8)
[2021-06-27 19:15] LABS: COVID-19 Test Negative (Negative)
[2021-06-27 19:22] LABS: D Dimer High Sensitivity < 150 NG/ML
[2021-06-27 19:24] LABS: Anion Gap 13 (12-20); Blood Urea Nitrogen 15 mg/dL (9-16); Calcium 9.6 mg/dL (8.4-10.2); Carbon Dioxide 24 mmol/L (22-29); Chloride 106 mmol/L (96-108); Creatinine Clr Calc Pharmacy 78.6; Estimated Glomerular Filt Rate > 60; Glucose Random 130 mg/dL (60-115); Potassium 4.5 mmol/L (3.3-5.1); Sodium 138 mmol/L (135-145)
[2021-06-27 19:28] LABS: Troponin-I High Sensitivity < 3.5 ng/L (<3.5-35.0)
--- NOTE | 2021-06-27 20:05 | PC.NURSE ---
reviewed discharge instruction and medication review. pt reports understanding.
== END 2021-06-27 20:06 | disposition home or self-care (01) ==
PROVIDERS: Physician Assistant; Emergency Provider Emergency Medicine
DX: J20.9 Acute bronchitis, unspecified (principal); I10 Essential (primary) hypertension; Z20.822 Contact with and (suspected) exposure to COVID-19
CPT/HCPCS: 36415; 71046; 80048; 84484; 85025; 85379; 87635; 93005; 99283; 99284

== ENCOUNTER 2021-07-07 08:14 | Emergency (ER) | payer OTHER, SELFPAY ==
--- NOTE | ~2021-07-07 | US_ITS ---
EXAMINATION: US ABDOMEN LIMITED CLINICAL INFORMATION: Right upper quadrant pain.. COMPARISON: None TECHNIQUE: Real-time imaging of the right upper quadrant abdominal viscera. FINDINGS: PANCREAS: The head and the body the pancreas is homogeneous in echotexture. The tail is obscured by overlying gas. LIVER: Normal. The liver is normal in size. The liver contour is normal. Parenchymal echogenicity is normal. No focal hepatic lesion. There is no intrahepatic biliary duct dilatation seen. GALLBLADDER: The gallbladder is slightly contracted with patient nonfasting state. Gallbladder wall thickness is 0.28 cm. COMMON BILE DUCT: Normal in caliber measuring 0.39 cm in diameter. RIGHT KIDNEY: Normal. No hydronephrosis. No renal calculi or focal parenchymal lesions. The kidney measures 11.0 cm in maximum dimension. FREE FLUID: None. US/US abdomen limited IMPRESSION: Limited visualization of contracted gallbladder. Visualized liver, pancreas, right kidney and CBD appears unremarkable.
[2021-07-07 08:15] VITALS: BP 150/89; PULSE 90; RESP 16; TEMP 36.6; O2SAT 98; BMI 25.7
--- NOTE | 2021-07-07 08:50 | ED_ITS ---
HPI - Abdominal Pain General Chief Complaint: Abdominal Pain Stated Complaint: ABD PAIN Time Seen by Provider: 07/07/21 08:48 Source: patient Mode of arrival: ambulatory Limitations: no limitations History of Present Illness MD elicited complaint: abdominal pain Pertinent past history: gastritis (but does not take his medications) Onset (ago): day(s) (few) Pain Consistency: constant Location: epigastric Severity: moderate Quality: stabbing Radiation: back Migration to: no migration Exacerbating factors: eating Relieving factors: nothing Context: other (dx with bronchitis on 06/27 completed prednisone and azithromycin) Associated symptoms: denies other symptoms Related Data Home Medications Medication Instructions Recorded Confirmed aspirin 81 mg tablet 81 mg PO DAILY 05/29/20 05/16/21 multivitamin-ferrous 1 tab PO DAILY 10/18/20 05/16/21 fumarate-folic acid 18 mg-400 mcg tablet (Centrum) Previous Rx's Medication Instructions Recorded methylcellulose (laxative) 500 mg 500 mg PO DAILY #30 tab 11/14/20 tablet (Citrucel) psyllium seed (sugar) oral powder 1 tbsp PO DAILY #1254 g 01/16/21 (Metamucil (sugar)) pravastatin 40 mg tablet 40 mg PO DAILY #90 tab 05/16/21 ezetimibe 10 mg tablet 10 mg PO DAILY #90 tab 06/05/21 omeprazole 20 mg capsule,delayed 20 mg PO DAILY #30 cap 06/05/21 release azithromycin 250 mg tablet See Rx Instructions .ROUTE 06/27/21 (Zithromax Z-Gabriel) .COMPLEX #6 tab hydrocodone-homatropine 5 mg-1.5 5 ml PO Q6H PRN #60 ml 06/27/21 mg/5 mL oral syrup (Hycodan (with homatropine)) ibuprofen 600 mg tablet 600 mg PO Q8H PRN #20 tab 06/27/21 prednisone 20 mg tablet 40 mg PO DAILY #10 tab 06/27/21 omeprazole 40 mg capsule,delayed 40 mg PO BID 14 Days #28 cap 07/07/21 release Allergies Allergy/AdvReac Type Severity Reaction Status Date / Time rosuvastatin [Crestor] AdvReac Intermediate myalgias Verified 06/05/21 13:27 Review of Systems Review of Systems Constitutional : No Weight loss, No Fever, No Chills ENT/Mouth : No sore throat, No Rhinorrhea Eyes: No Swelling, No Redness Cardiovascular : No Chest Pain, No SOB, NoEdema Respiratory : No Cough, No Sputum, No Wheezing Gastrointestinal : no Nausea, no Vomiting, no Diarrhea, positive abdominal Pain, No Hematochezia, No Melena Genitourinary : No Dysuria, No Urinary Frequency, No Hematuria, No Urgency Musculoskeletal : No joint pain, No Myalgias, No Joint Swelling Skin : No Skin Lesions, No rash Neuro : No Weakness, No Numbness, No Dizziness, No Headache Psych : No Anxiety/Panic, No Depression Heme/Lymph: No Bruising, No Lymphadenopathy Endocrine : No Polyuria, No Polydipsia All other systems reviewed and are negative. Physical Exam Vital Signs: Vital Signs: Last Vital Signs Temp 97.8 F 07/07/21 08:15 Pulse 90 07/07/21 08:15 Resp 16 07/07/21 08:15 BP 150/89 H 07/07/21 08:15 Pulse Ox 98 07/07/21 08:15 Body Mass Index 25.7 Appearance: Alert. Oriented X3. No acute distress. Eyes: Pupils equal, round and reactive to light. ENT: Pharynx normal. Neck: Normal inspection. Neck supple. CVS: Normal heart rate and rhythm. Pulses normal. Respiratory: No respiratory distress. Breath sounds normal. Abdomen: Soft and very mild epigastric ttp no rebound or guarding Skin: Skin warm and dry. Normal skin color. Normal skin turgor. Extremities: No lower extremity edema. No calf ttp Neuro: Oriented X 3. No motor deficit. No sensory deficit. Course Course Course Narrative: labs negative workup stable needs high dose PPI at this time MDM - Abdominal Pain MDM Narrative Medical decision making narrative: 50 yo male with hx of GERD, HLD does not take his PPI comes in with upper abdominal pain radiating through the back after completing prednisone course for bronchitis - he takes no NSAIDs. At this time suspect gastritis vs ulcer denies GIB symptoms. Will obtain basic labs, US to evaluate liver/GB, start on PPI 40mg BID x 2 weeks, avoid NSAIDs. Dispo per results and findings. Lab Data Result diagrams: 07/07/21 09:12 07/07/21 09:12 Labs: Lab Results 07/07/21 07/07/21 07/07/21 Range/Units 09:12 09:12 09:12 WBC 10.6 (4.8-10.8) X10*3/uL RBC 5.53 (4.60-5.80) X10*6/uL Hgb 14.6 (14.0-18.0) g/dl Hct 45.4 (42.0-52.0) % MCV 82.1 (80.0-98.0) fL MCH 26.4 L (27.0-33.0) pg MCHC 32.2 (31.0-36.0) g/dl RDW 14.6 (11.0-16.0) % Plt Count 230 (160-400) X10*3/uL MPV 10.4 (9.4-12.4) fL Immature Gran % (Auto) 0.3 (0.0-0.4) % Neut % (Auto) 55.3 (45-73) % Lymph % (Auto) 33.9 (20-40) % [place] % (Auto) 7.0 (2-11) % Eos % (Auto) 3.0 (0-4) % Baso % (Auto) 0.5 (0-2) % Lymph # (Auto) 3.6 (1.2-4.9) X10*3/uL [place] # (Auto) 0.7 (0.1-1.2) X10*3/uL Eos # (Auto) 0.3 (0.0-0.4) X10*3/uL Baso # (Auto) 0.1 (0.0-0.2) X10*3/uL Abs Immat Gran (auto) 0.03 (0.00-0.03) X10*3/uL Absolute Neuts (auto) 5.8 (2.0-8.3) x10*3/uL Absolute Nucleated RBC 0.000 (0.0-0.012) X10*3/uL Nucleated RBC % (auto) 0.0 (0.0-0.2) /100WBC Sodium 138 (135-145) mmol/L Potassium 3.8 (3.3-5.1) mmol/L Chloride 103 (96-108) mmol/L Carbon Dioxide 26 (22-29) mmol/L Anion Gap 13 (12-20) BUN 16 (9-16) mg/dL Creatinine 1.05 (0.5-1.4) mg/dL Estim Creat Clear Calc 91.3 Estimated GFR > 60 Random Glucose 170 H (60-115) mg/dL Calcium 9.5 (8.4-10.2) mg/dL Magnesium 2.2 (1.6-2.6) mg/dL Total Bilirubin 0.4 (0.0-1.0) mg/dL Direct Bilirubin < 0.2 (0.0-0.5) mg/dL AST 21 (5-37) U/L ALT 33 (0-40) U/L Alkaline Phosphatase 104 (39-117) U/L Troponin I High Sens < 3.5 (<3.5-35.0) ng/L Total Protein 6.5 (6.5-8.0) g/dL Albumin 4.1 (3.5-5.0) g/dL Lipase 32 (8-78) U/L ECG Data Attestation: I personally reviewed and interpreted this ECG as follows: ECG interpretation date: 07/07/21 ECG interpretation time: 10:05 Interpretation: Rate: 75 Rhythm: NSR [place]: normal Normal P waves. Normal RITA. Normal QRS complex. ST T wave : normal no CARMELINA qTC: normal prior studies: no acute ischemia The study has been interpreted contemporaneously by me. . Discharge Plan Discharge Clinical Impression: Gastritis Qualifiers: Gastritis type: other gastritis Chronicity: acute Gastritis bleeding: without bleeding Qualified Code(s): K29.00 - Acute gastritis without bleeding Patient Disposition: Home, Self-Care Instructions: Gastritis (ED) Additional Instructions: return to ED for any worsening symptoms or concerns no aleve, motrin, aspirin, ibuprofen after omeprazole start your usual 20mg omeprazole daily Prescriptions: New omeprazole 40 mg capsule,delayed release(DR/EC) 40 mg PO BID 14 Days Qty: 28 RF: 0 No Action Metamucil (sugar) Powder 1 tbsp PO DAILY Qty: 1254 RF: 2 aspirin 81 mg Tablet 81 mg PO DAILY RF: 0 Centrum 18-400 mg-mcg Tablet 1 tab PO DAILY RF: 0 prednisone 20 mg tablet 40 mg PO DAILY Qty: 10 RF: 0 azithromycin [Zithromax Z-Gabriel] 250 mg tablet See Rx Instructions .ROUTE .COMPLEX Qty: 6 RF: 0 ibuprofen 600 mg tablet 600 mg PO Q8H PRN (Reason: pain) Qty: 20 RF: 0 hydrocodone-homatropine [Hycodan (with homatropine)] 5-1.5 mg/5 mL syrup 5 ml PO Q6H PRN (Reason: cough) Qty: 60 RF: 0 pravastatin 40 mg tablet 40 mg PO DAILY Qty: 90 RF: 0 Citrucel 500 mg tablet 500 mg PO DAILY Qty: 30 RF: 5 omeprazole 20 mg capsule,delayed release(DR/EC) 20 mg PO DAILY Qty: 30 RF: 3 ezetimibe 10 mg tablet 10 mg PO DAILY Qty: 90 RF: 3 Referrals: Harinder Fuller MD [Primary Care Provider] - 2 days (if not better) Stand Alone Forms: Work/School Release [facility] Past Medical History Attestation statement: The following information was validated with the patient. Medical History Allergic rhinitis Elevated blood pressure reading Insomnia Overweight (BMI 25.0-29.9) Pain in both feet Pure hypercholesterolemia Smoker Tubular adenoma Surgical History History of colonoscopy History of inguinal hernia repair History of vasectomy Hx of wisdom tooth extraction Family History Family History Father No problems noted. Mother No problems noted. Paternal Uncle History of stomach cancer Maternal Aunt Hx of breast cancer Son No problems noted. 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
--- NOTE | 2021-07-07 08:57 | ECG_ITS ---
Test Reason : ABD PAIN Blood Pressure : / mmHG Vent. Rate : 075 BPM Atrial Rate : 075 BPM P-R Int : 158 ms QRS Dur : 100 ms QT Int : 382 ms P-R-T Axes : 022 040 084 degrees QTc Int : 426 ms Normal sinus rhythm Intra-ventricular conduction delay Nonspecific ST abnormality Lateral leads Abnormal ECG When compared with ECG of 27-JUN-2021 18:47, No significant change was found Referred By: Chyna Esteban Electronically Signed By:BONG HOYOS MD
[2021-07-07] MEDS: Magnesium Hydrox/Alum Hydrox 30 ML ORAL.SUSP 15 ML PO (09:05)
[2021-07-07] MEDS: Omeprazole 20 MG CAPSULE.DR 40 MG PO (09:06)
[2021-07-07] MEDS: Lidocaine HCl Viscous 2 % 15 ML SOLUTION MUCOUS MEM (09:06)
[2021-07-07 09:18] LABS: MANUAL DIFF FLAG NO
[2021-07-07 09:28] LABS: Basophils Absolute Auto 0.1 X10*3/uL (0.0-0.2); Basophils Percent Auto 0.5 % (0-2); Eosinophils Absolute Auto 0.3 X10*3/uL (0.0-0.4); Hematocrit 45.4 % (42.0-52.0); Hemoglobin 14.6 g/dl (14.0-18.0); Imm Gran Abs Auto 0.03 X10*3/uL (0.00-0.03); Imm Gran Pct Auto 0.3 % (0.0-0.4); Lymphocytes Absolute Auto 3.6 X10*3/uL (1.2-4.9); Lymphocytes Percent Auto 33.9 % (20-40); Mean Corpuscular HGB Conc 32.2 g/dl (31.0-36.0); Mean Corpuscular Hemoglobin 26.4 pg (27.0-33.0); Mean Corpuscular Volume 82.1 fL (80.0-98.0); Mean Platelet Volume 10.4 fL (9.4-12.4); Monocytes Absolute Auto 0.7 X10*3/uL (0.1-1.2); Neutrophils Absolute Auto 5.8 x10*3/uL (2.0-8.3); Neutrophils Percent Auto 55.3 % (45-73); Platelet Count 230 X10*3/uL (160-400); Red Blood Count 5.53 X10*6/uL (4.60-5.80); Red Cell Distribution Width 14.6 % (11.0-16.0); White Blood Count 10.6 X10*3/uL (4.8-10.8)
[2021-07-07 09:47] LABS: Alanine Aminotransferase 33 U/L (0-40); Albumin Level 4.1 g/dL (3.5-5.0); Alkaline Phosphatase 104 U/L (39-117); Anion Gap 13 (12-20); Aspartate Amino Transferase 21 U/L (5-37); Bilirubin Direct < 0.2 mg/dL (0.0-0.5); Bilirubin Total 0.4 mg/dL (0.0-1.0); Blood Urea Nitrogen 16 mg/dL (9-16); Calcium 9.5 mg/dL (8.4-10.2); Carbon Dioxide 26 mmol/L (22-29); Chloride 103 mmol/L (96-108); Creatinine Clr Calc Pharmacy 91.3; Estimated Glomerular Filt Rate > 60; Glucose Random 170 mg/dL (60-115); Lipase 32 U/L (8-78); Magnesium 2.2 mg/dL (1.6-2.6); Potassium 3.8 mmol/L (3.3-5.1); Sodium 138 mmol/L (135-145); Total Protein 6.5 g/dL (6.5-8.0)
[2021-07-07 09:53] LABS: Troponin-I High Sensitivity < 3.5 ng/L (<3.5-35.0)
== END 2021-07-07 10:30 | disposition home or self-care (01) ==
PROVIDERS: Emergency Provider Emergency Medicine; PCP Internal Medicine
DX: K29.00 Acute gastritis without bleeding (principal)
CPT/HCPCS: 36415; 76705; 80048; 80076; 83690; 83735; 84484; 85025; 93005; 99281; 99284

== ENCOUNTER 2021-07-11 15:13 | Outpatient (REF) | payer OTHER, SELFPAY | END 2021-07-11 15:14 | disposition home or self-care (01) | LOC: HO.LNP 15:13 | PROVIDERS: PCP Nurse Practitioner Family; Visit Provider Nurse Practitioner Family | DX: K21.9 Gastro-esophageal reflux disease without esophagitis (principal) | CPT/HCPCS: 87338 ==

== ENCOUNTER 2021-07-25 09:34 | Outpatient (REF) | payer OTHER, SELFPAY ==
--- NOTE | 2021-07-25 09:38 | EMG_ITS ---
This is a 50-year-old man with a 1 year history of pain and numbness in his hands, left more than right. He is on no medications. His examination is normal with no Tinel or Phalen sign. IMPRESSION: Rule out carpal tunnel syndrome. Nerve conduction EMG study: Normal electrodiagnostic study of both upper extremities with no evidence of carpal tunnel syndrome or nerve entrapment. Normal EMG of the left C5-T1 innervated muscles. MD SCOTT Aragon/LIBBY / [id number]
== END 2021-07-25 09:35 | disposition home or self-care (01) ==
LOC: HO.NEURO 09:34
PROVIDERS: Visit Provider Internal Medicine
DX: R29.898 Other symptoms and signs involving the musculoskeletal system (principal); R20.0 Anesthesia of skin
CPT/HCPCS: 95886; 95913

== ENCOUNTER 2021-08-02 08:47 | Outpatient (REF) | payer OTHER, SELFPAY ==
[2021-08-02 11:49] LABS: COVID-19 Test Positive (Negative)
== END 2021-08-02 08:48 | disposition home or self-care (01) ==
LOC: HO.LAB 08:47
PROVIDERS: Visit Provider Internal Medicine
DX: Z20.822 Contact with and (suspected) exposure to COVID-19 (principal)
CPT/HCPCS: 36415; 87635; C9803

== ENCOUNTER 2021-11-23 19:15 | Emergency (ER) | payer OTHER, SELFPAY ==
--- NOTE | ~2021-11-23 | CT_ITS ---
EXAMINATION: CT HEAD WITHOUT CONTRAST CLINICAL INFORMATION: Severe headache. COMPARISON: None available. TECHNIQUE: Contiguous axial imaging was performed from the skull base to vertex without intravenous administration of contrast. This CT examination was performed using dose optimization techniques as appropriate, variously including the following: *Automated exposure control *Adjustment of mA and/or kV according to patient size (this includes techniques or standardized protocols for targeted exams where dose is matched to indication/reason for exam; i.e. extremities or head) *Use of iterative reconstruction technique DLP: 717 mGy-cm FINDINGS: There is no evidence of acute intracranial hemorrhage or edematous territorial infarction. There is no abnormal attenuation within the brain parenchyma. Parson-white matter differentiation is preserved. The ventricles are normal in size and configuration. No evidence for obstructive hydrocephalus. No abnormal mass effect or midline shift. No extra-axial fluid collections. No acute soft tissue or osseous abnormalities. Mild mucosal thickening of the paranasal sinuses. Mucous retention cyst within the left maxillary sinus. Mild rightward nasal septal deviation. The mastoid air cells and middle ear cavities are clear. CT/CT head/brain wo con IMPRESSION: No evidence of acute intracranial hemorrhage or edematous territorial infarction.
[2021-11-23 19:32] VITALS: BP 160/98; PULSE 102; RESP 14; TEMP 36.7; O2SAT 97; BMI 25.7
[2021-11-23 20:11] VITALS: BP 137/80; PULSE 95; RESP 16; TEMP 36.7; O2SAT 100
--- NOTE | 2021-11-23 20:23 | ECG_ITS ---
Test Reason : HEADACHE Blood Pressure : / mmHG Vent. Rate : 094 BPM Atrial Rate : 094 BPM P-R Int : 160 ms QRS Dur : 096 ms QT Int : 346 ms P-R-T Axes : 041 057 075 degrees QTc Int : 432 ms Normal sinus rhythm Normal ECG When compared with ECG of 07-JUL-2021 09:58, No significant change was found Referred By: Lonnie Marrero Electronically Signed By:Jean-Claude Canela
[2021-11-23 20:32] LABS: MANUAL DIFF FLAG NO
[2021-11-23 20:34] LABS: Eosinophils Absolute Auto 0.1 X10*3/uL (0.0-0.4); Eosinophils Percent Auto 2.7 % (0-4); Hematocrit 42.1 % (42.0-52.0); Hemoglobin 13.6 g/dl (14.0-18.0); Imm Gran Abs Auto 0.01 X10*3/uL (0.00-0.03); Imm Gran Pct Auto 0.2 % (0.0-0.4); Lymphocytes Absolute Auto 1.7 X10*3/uL (1.2-4.9); Lymphocytes Percent Auto 35.6 % (20-40); Mean Corpuscular HGB Conc 32.3 g/dl (31.0-36.0); Mean Corpuscular Hemoglobin 25.9 pg (27.0-33.0); Mean Corpuscular Volume 80.2 fL (80.0-98.0); Mean Platelet Volume 9.9 fL (9.4-12.4); Monocytes Absolute Auto 0.5 X10*3/uL (0.1-1.2); Neutrophils Absolute Auto 2.5 x10*3/uL (2.0-8.3); Neutrophils Percent Auto 51.5 % (45-73); Platelet Count 196 X10*3/uL (160-400); Red Blood Count 5.25 X10*6/uL (4.60-5.80); Red Cell Distribution Width 14.1 % (11.0-16.0); White Blood Count 4.8 X10*3/uL (4.8-10.8)
--- NOTE | 2021-11-23 20:44 | ED.HA ---
HPI - Headache General Chief Complaint: Headache Stated Complaint: Headache x 2 Weeks Time Seen by Provider: 11/23/21 20:14 Source: patient Mode of arrival: ambulatory Limitations: no limitations History of Present Illness HPI Narrative: This is a 50-year-old male no significant medical history presenting to the emergency department with complaints of headache and pressure behind his eyes x2 weeks Patient tells me that his headache is diffuse however it is worse over bilateral temples he tells me this has been intermittent over the past 2 weeks. He also reports scalp tenderness. He tells me this has never happened to him before. He denies vision changes however he does tell me he feels pressure behind his eyes. He also tells me that he is having neck stiffness/tightness. He tells me he has a decent amount of stress at work. He denies dizziness. He denies head trauma. He denies nausea, vomiting, chest pain, shortness of breath, fevers, chills, abdominal pain, lethargy, photophobia, jaw claudication. Patient tells me he has no history of rheumatologic issues. Takes aspirin daily MD elicited complaint: headache Onset (ago): week(s) (2) Location: temporal and generalized Severity: moderate Quality & Timing: throbbing Exacerbating factors: exertion Relieving factors: nothing Associated symptoms: neck stiffness Treatments prior to arrival: none Related Data Home Medications Medication Instructions Recorded Confirmed aspirin 81 mg tablet 81 mg PO DAILY 05/29/20 08/23/21 multivitamin-ferrous 1 tab PO DAILY 10/18/20 08/23/21 fumarate-folic acid 18 mg-400 mcg tablet (Centrum) Previous Rx's Medication Instructions Recorded methylcellulose (laxative) 500 mg 500 mg PO DAILY #30 tab 11/14/20 tablet (Citrucel) psyllium seed (sugar) oral powder 1 tbsp PO DAILY #1254 g 01/16/21 (Metamucil (sugar)) ezetimibe 10 mg tablet 10 mg PO DAILY #90 tab 06/05/21 hydrocodone-homatropine 5 mg-1.5 5 ml PO Q6H PRN #60 ml 06/27/21 mg/5 mL oral syrup (Hycodan (with homatropine)) ibuprofen 600 mg tablet 600 mg PO Q8H PRN #20 tab 06/27/21 omeprazole 40 mg capsule,delayed 40 mg PO DAILY 90 Days #90 cap 08/23/21 release pravastatin 40 mg tablet 40 mg PO DAILY #90 tab 11/12/21 prednisone 20 mg tablet 60 mg PO DAILY 4 Days #12 tab 11/24/21 Allergies Allergy/AdvReac Type Severity Reaction Status Date / Time rosuvastatin [Crestor] AdvReac Intermediate myalgias Verified 08/23/21 11:48 Review of Systems Review of Systems: Constitutional : No Weight loss, No Fever, No Chills, No Fatigue, No Malaise ENT/Mouth : No sore throat, No Rhinorrhea Eyes: No Eye Pain, No Swelling, No Redness Cardiovascular : No Chest Pain, No SOB, No Dyspnea on Exertion, No Orthopnea, No Edema, No Palpitations Respiratory : No Cough, No Sputum, No Wheezing Gastrointestinal : No Nausea, No Vomiting, No Diarrhea, No Constipation, No abdominal Pain, No Hematochezia, No Melena Genitourinary : No Dysuria, No Urinary Frequency, No Hematuria, Musculoskeletal : No joint pain, No Myalgias, No Joint Swelling Skin : No Skin Lesions, No rash Neuro : No Weakness, No Numbness, No Dizziness, + Headache Psych : No Anxiety/Panic, No Depression All other systems reviewed and are negative Yes all other systems are reviewed and are negative [facility] Past Medical History Attestation statement: The following information was validated with the patient. Source: old records reviewed and nursing notes reviewed Medical History (Updated 11/23/21 @ 23:22 by NEGRA Motley) Allergic rhinitis Elevated blood pressure reading Gastritis Insomnia Overweight (BMI 25.0-29.9) Pain in both feet Pure hypercholesterolemia Smoker Tubular adenoma Surgical History History of colonoscopy History of inguinal hernia repair History of vasectomy Hx of wisdom tooth extraction Family History Family History Father No problems noted. Mother No problems noted. Paternal Uncle History of stomach cancer Maternal Aunt Hx of breast cancer Son No problems noted. Social History Social History Household Members: Spouse and Children Housing: House Alcohol intake: current Alcohol intake frequency: holidays/special occasions only Patient Tobacco Use Status: Current everyday Tobacco user Cigarettes Per Day: 10 Years Smoked: 30 Second Hand Smoke Exposure: Yes Advance Directives: No service: No Current occupational status: employed Current occupation: [employer] Physical Exam Vital Signs: Vital Signs: Last Vital Signs Temp 98.1 F 11/23/21 20:11 Pulse 95 11/23/21 20:11 Resp 14 11/23/21 21:48 BP 137/80 11/23/21 20:11 Pulse Ox 100 11/23/21 20:11 BMI result Body Mass Index 25.7 Vital signs stable Appearance: Alert.? Oriented X3.? No acute distress.? Head: Normocephalic, atraumatic, no step-offs or deformities + discomfort with palpation of bilateral temporal regions, able to palpate pulse sign temporal arteries. Eyes: Pupils equal, round and reactive to light.? ENT: Pharynx normal.? Neck: Normal inspection.? Neck supple.? CVS: Normal heart rate and rhythm.? Pulses normal.? Respiratory: No respiratory distress.? Breath sounds normal.? Abdomen: Soft and nontender.? Skin: Skin warm and dry.? Normal skin color.? Normal skin turgor.? Extremities: No lower extremity edema.? No calf ttp. 5/5 strength to bilateral upper and lower extremities Back: No midline tenderness, no C-spine tenderness, full range of motion, no CVA tenderness bilaterally Neuro: Oriented X 3.? No motor deficit.? No sensory deficit. CN 2-12 intact. Normal fmxtqs-xg-htbo, dkfz-lv-[id number], steady tandem gait Course Reevaluation(s) Reevaluation #1: CBC appears to be around patient's baseline. ESR elevated 26. CRP also elevated 0.87. No acute electrolyte abnormalities. Urine clean. COVID negative. CT of the head/brain without acute findings. No evidence of intracranial hemorrhage or territorial infarction. Patient receiving morphine for pain. Will likely treat patient w/ steroids to cover for temporal arteritis. Discussed this w/ Dr. Powers who recomends prednisone 60 mg po daily X2 weeks and follow up promptly w/ Time: 22:15 Reevaluation #2: Left eye pressure 16, right 9. History and physical not consistent with closed angle glaucoma. Patient with normal visual acuity bilaterally. He tells me initially his headache was about a 9/10. He now reports that is about a 1 or 2. Patient appears comfortable. Educated him on treatment plan he will be started on prednisone 60 mg p.o. daily x5 days and I will have him follow-up with Dr. Cherelle bourgeois who will likely obtain a temporal artery biopsy and his PCP melia. . Advised patient on the importance of taking the prednisone daily. Advised him to return with new or worsening symptoms. Outlined these in his discharge. Time: 23:21 Reevaluation #3: Patient tells me his headache has completely subsided. Time: 00:34 MDM - Headache MDM Narrative Medical decision making narrative: 2025 50 yo m presents w/ diffuse headache worse in temporal region X2 weeks intermittent in nature. 9/10 nichols on arrival. Physical examination benign. Normal cerebellar function. Neuro nonfocal. Pupils equal round and reactive to light. Extraocular movement intact. No meningeal signs. Unlikely meningitis. Regular rate and rhythm. Lungs clear. Patient reports discomfort with palpation of bilateral temporal regions. Unlikely that this is meningitis. Unlikely posterior stroke patient has normal hfftqg-tz-qkyd, sngl-xg-gwds, steady tandem gait. Likely tension type headache. Will order inflammatory markers to rule in/out temporal arteritis. Plan at this time labs, imaging. Medical Records Attestation: I reviewed the patient's medical records. Lab Data Attestation: I reviewed the patient's lab results. Result diagrams: 11/23/21 20:22 11/23/21 20:22 Labs: Lab Results 11/23/21 11/23/21 11/23/21 Range/Units 20:22 20:22 20:22 WBC 4.8 (4.8-10.8) X10*3/uL RBC 5.25 (4.60-5.80) X10*6/uL Hgb 13.6 L (14.0-18.0) g/dl Hct 42.1 (42.0-52.0) % MCV 80.2 (80.0-98.0) fL MCH 25.9 L (27.0-33.0) pg MCHC 32.3 (31.0-36.0) g/dl RDW 14.1 (11.0-16.0) % Plt Count 196 (160-400) X10*3/uL MPV 9.9 (9.4-12.4) fL Immature Gran % (Auto) 0.2 (0.0-0.4) % Neut % (Auto) 51.5 (45-73) % Lymph % (Auto) 35.6 (20-40) % [place]ville % (Auto) 10.0 (2-11) % Eos % (Auto) 2.7 (0-4) % Baso % (Auto) 0.0 (0-2) % Lymph # (Auto) 1.7 (1.2-4.9) X10*3/uL [place] # (Auto) 0.5 (0.1-1.2) X10*3/uL Eos # (Auto) 0.1 (0.0-0.4) X10*3/uL Baso # (Auto) 0.0 (0.0-0.2) X10*3/uL Abs Immat Gran (auto) 0.01 (0.00-0.03) X10*3/uL Absolute Neuts (auto) 2.5 (2.0-8.3) x10*3/uL Absolute Nucleated RBC 0.000 (0.0-0.012) X10*3/uL Nucleated RBC % (auto) 0.0 (0.0-0.2) /100WBC ESR (0-15) MM/HR Sodium 139 (135-145) mmol/L Potassium 4.0 (3.3-5.1) mmol/L Chloride 105 (96-108) mmol/L Carbon Dioxide 23 (22-29) mmol/L Anion Gap 15 (12-20) BUN 13 (9-16) mg/dL Creatinine 0.89 (0.5-1.4) mg/dL Estim Creat Clear Calc 107.7 Estimated GFR > 60 Random Glucose 94 D (60-115) mg/dL Calcium 9.3 (8.4-10.2) mg/dL Magnesium 2.3 (1.6-2.6) mg/dL Total Bilirubin 0.5 (0.0-1.0) mg/dL AST 25 (5-37) U/L ALT 24 (0-40) U/L Alkaline Phosphatase 128 H D (39-117) U/L C-Reactive Protein 0.87 H (< or = 0.50) mg/dL Total Protein 7.0 (6.5-8.0) g/dL Albumin 4.1 (3.5-5.0) g/dL Urine Color Urine Appearance Urine pH (5.0-8.0) Ur Specific [place] (1.005-1.025) Urine Protein (NEG-TRACE) MG/DL Urine Glucose (UA) (NEG) MG/DL Urine Ketones (NEG) MG/DL Urine Blood (NEG) Urine Nitrite (NEG) Ur Leukocyte Esterase (NEG) COVID-19 (LUCIANO) Negative (Negative) COVID-19 Clin Com See Note 11/23/21 11/23/21 Range/Units 20:22 20:57 WBC (4.8-10.8) X10*3/uL RBC (4.60-5.80) X10*6/uL Hgb (14.0-18.0) g/dl Hct (42.0-52.0) % MCV (80.0-98.0) fL MCH (27.0-33.0) pg MCHC (31.0-36.0) g/dl RDW (11.0-16.0) % Plt Count (160-400) X10*3/uL MPV (9.4-12.4) fL Immature Gran % (Auto) (0.0-0.4) % Neut % (Auto) (45-73) % Lymph % (Auto) (20-40) % Granville % (Auto) (2-11) % Eos % (Auto) (0-4) % Baso % (Auto) (0-2) % Lymph # (Auto) (1.2-4.9) X10*3/uL [place]ville # (Auto) (0.1-1.2) X10*3/uL Eos # (Auto) (0.0-0.4) X10*3/uL Baso # (Auto) (0.0-0.2) X10*3/uL Abs Immat Gran (auto) (0.00-0.03) X10*3/uL Absolute Neuts (auto) (2.0-8.3) x10*3/uL Absolute Nucleated RBC (0.0-0.012) X10*3/uL Nucleated RBC % (auto) (0.0-0.2) /100WBC ESR 26 H (0-15) MM/HR Sodium (135-145) mmol/L Potassium (3.3-5.1) mmol/L Chloride (96-108) mmol/L Carbon Dioxide (22-29) mmol/L Anion Gap (12-20) BUN (9-16) mg/dL Creatinine (0.5-1.4) mg/dL Estim Creat Clear Calc Estimated GFR Random Glucose (60-115) mg/dL Calcium (8.4-10.2) mg/dL Magnesium (1.6-2.6) mg/dL Total Bilirubin (0.0-1.0) mg/dL AST (5-37) U/L ALT (0-40) U/L Alkaline Phosphatase (39-117) U/L C-Reactive Protein (< or = 0.50) mg/dL Total Protein (6.5-8.0) g/dL Albumin (3.5-5.0) g/dL Urine Color YELLOW Urine Appearance CLEAR Urine pH 6.0 (5.0-8.0) Ur Specific [place] 1.020 (1.005-1.025) Urine Protein NEG (NEG-TRACE) MG/DL Urine Glucose (UA) NEG (NEG) MG/DL Urine Ketones NEG (NEG) MG/DL Urine Blood NEG (NEG) Urine Nitrite NEG (NEG) Ur Leukocyte Esterase NEG (NEG) COVID-19 ([facility]O) (Negative) COVID-19 Clin Com Critical Care Time Critical Care Time Critical Care Time: No Discharge Plan Discharge Clinical Impression: Headache, Temporal arteritis Patient Disposition: Home, Self-Care Instructions: Acute Headache (ED) Additional Instructions: Take your medications as prescribed. If you were prescribed antibiotics today, it is important that you take your medication to their entirety, do not skip any doses, do not finish them early. You can take ibuprofen every 6 hours, Tylenol every 4 as needed for pain. Please take prednisone as prescribed. Follow-up with your primary care provider this week. Follow-up with vascular call and schedule an appointment on Friday. Return to the emergency department with new or worsening symptoms. Such as fevers, chills, chest pain, shortness of breath, nausea, vomiting, dizziness, headache, vision changes, lethargy, issues opening or closing her jaw, worsening pain, weakness In case of emergency call 911 Prescriptions: New prednisone 20 mg tablet 60 mg PO DAILY 4 Days Qty: 12 0RF No Action Metamucil (sugar) Powder 1 tbsp PO DAILY Qty: 1254 2RF pravastatin 40 mg tablet 40 mg PO DAILY Qty: 90 0RF aspirin 81 mg Tablet 81 mg PO DAILY 0RF Centrum 18-400 mg-mcg Tablet 1 tab PO DAILY 0RF ibuprofen 600 mg tablet 600 mg PO Q8H PRN (Reason: pain) Qty: 20 0RF hydrocodone-homatropine [Hycodan (with homatropine)] 5-1.5 mg/5 mL syrup 5 ml PO Q6H PRN (Reason: cough) Qty: 60 0RF omeprazole 40 mg capsule,delayed release(DR/EC) 40 mg PO DAILY 90 Days Qty: 90 1RF Citrucel 500 mg tablet 500 mg PO DAILY Qty: 30 5RF ezetimibe 10 mg tablet 10 mg PO DAILY Qty: 90 3RF Referrals: Harinder Fuller MD [Primary Care Provider] - 2 days Stand Alone Forms: Work/School Release
[2021-11-23 20:53] LABS: Alanine Aminotransferase 24 U/L (0-40); Albumin Level 4.1 g/dL (3.5-5.0); Alkaline Phosphatase 128 U/L (39-117); Anion Gap 15 (12-20); Aspartate Amino Transferase 25 U/L (5-37); Bilirubin Total 0.5 mg/dL (0.0-1.0); Blood Urea Nitrogen 13 mg/dL (9-16); Calcium 9.3 mg/dL (8.4-10.2); Carbon Dioxide 23 mmol/L (22-29); Chloride 105 mmol/L (96-108); Creatinine Clr Calc Pharmacy 107.7; Estimated Glomerular Filt Rate > 60; Glucose Random 94 mg/dL (60-115); Magnesium 2.3 mg/dL (1.6-2.6); Sodium 139 mmol/L (135-145)
[2021-11-23 20:54] LABS: COVID-19 Test Negative (Negative)
[2021-11-23 21:03] LABS: Appearance Urine CLEAR; Color Urine YELLOW; Glucose Urine UA NEG (NEG); Leukocyte Esterase Urine NEG (NEG); Nitrite Urine NEG (NEG); Urine Blood NEG (NEG); Urine Ketones NEG (NEG); Urine Protein NEG (NEG-TRACE)
[2021-11-23 21:07] LABS: C Reactive Protein 0.87 mg/dL (< or = 0.50)
[2021-11-23 21:32] LABS: Erythrocyte Sedimentation Rate 26 MM/HR (0-15)
[2021-11-23 21:48] VITALS: RESP 14
[2021-11-23] MEDS: Morphine Sulfate 4 MG/ML CARTRIDGE IVPUSH (21:48)
[2021-11-24] VITALS: BP 131/87; PULSE 78; RESP 16
[2021-11-24] MEDS: predniSONE 20 MG TABLET 60 MG PO (00:44)
== END 2021-11-24 00:48 | disposition home or self-care (01) ==
PROVIDERS: Physician Assistant; Emergency Provider Emergency Medicine; PCP Internal Medicine
DX: R51.9 Headache, unspecified (principal); M54.2 Cervicalgia; M31.6 Other giant cell arteritis; F17.210 Nicotine dependence, cigarettes, uncomplicated; Z71.6 Tobacco abuse counseling; Z20.822 Contact with and (suspected) exposure to COVID-19; Z79.899 Other long term (current) drug therapy
CPT/HCPCS: 70450; 80053; 81003; 83735; 85025; 85652; 86140; 87635; 93005; 96374; 99284; J2270

== ENCOUNTER → 2021-11-29 11:21 | Outpatient (BNVA) | payer OTHER, SELFPAY | PROVIDERS: PCP Internal Medicine; Visit Provider Surgery Vascular Surgery | DX: Z13.89 Encounter for screening for other disorder (principal) ==

== ENCOUNTER 2021-12-18 09:27 | Outpatient (REF) | payer OTHER, SELFPAY ==
--- NOTE | ~2021-12-18 | XR_ITS ---
EXAMINATION: XR CHEST CLINICAL INFORMATION: Cough. COMPARISON: Chest radiograph dated from 06/27/2021. TECHNIQUE: 2 views of the chest were obtained. FINDINGS: No significant abnormality is noted involving the heart, lungs, mediastinum, bony thorax or soft tissues. XR/XR chest 2V IMPRESSION: Unremarkable examination.
[2021-12-18 09:55] LABS: MANUAL DIFF FLAG NO
[2021-12-18 10:18] LABS: Basophils Percent Auto 0.2 % (0-2); Eosinophils Percent Auto 0.7 % (0-4); Hematocrit 44.1 % (42.0-52.0); Hemoglobin 14.2 g/dl (14.0-18.0); Imm Gran Abs Auto 0.02 X10*3/uL (0.00-0.03); Imm Gran Pct Auto 0.4 % (0.0-0.4); Lymphocytes Absolute Auto 1.4 X10*3/uL (1.2-4.9); Mean Corpuscular HGB Conc 32.2 g/dl (31.0-36.0); Mean Corpuscular Hemoglobin 25.6 pg (27.0-33.0); Mean Corpuscular Volume 79.5 fL (80.0-98.0); Mean Platelet Volume 10.9 fL (9.4-12.4); Monocytes Absolute Auto 0.4 X10*3/uL (0.1-1.2); Neutrophils Absolute Auto 3.5 x10*3/uL (2.0-8.3); Neutrophils Percent Auto 64.7 % (45-73); Platelet Count 169 X10*3/uL (160-400); Red Blood Count 5.55 X10*6/uL (4.60-5.80); Red Cell Distribution Width 14.6 % (11.0-16.0); White Blood Count 5.4 X10*3/uL (4.8-10.8)
[2021-12-18 10:38] LABS: Appearance Urine CLEAR; Color Urine YELLOW; Glucose Urine UA NEG (NEG); Leukocyte Esterase Urine NEG (NEG); Nitrite Urine NEG (NEG); Specific Gravity - Urine 1.015 (1.005-1.025); UACC Culture Trigger NO; Urine Blood 1+ (NEG); Urine Ketones NEG (NEG); Urine Protein NEG (NEG-TRACE)
[2021-12-18 10:52] LABS: Alanine Aminotransferase 25 U/L (0-40); Albumin Level 4.2 g/dL (3.5-5.0); Alkaline Phosphatase 118 U/L (39-117); Anion Gap 13 (12-20); Aspartate Amino Transferase 25 U/L (5-37); Bilirubin Total 0.3 mg/dL (0.0-1.0); Blood Urea Nitrogen 12 mg/dL (9-16); Calcium 9.4 mg/dL (8.4-10.2); Carbon Dioxide 25 mmol/L (22-29); Chloride 104 mmol/L (96-108); Cholesterol 203 mg/dL; Estimated Glomerular Filt Rate > 60; Glucose Fasting 123 mg/dL (60-99); HDL Cholesterol 32 mg/dL; LDL Cholesterol Calculated 125 mg/dl; Potassium 4.2 mmol/L (3.3-5.1); Sodium 138 mmol/L (135-145); Total Protein 7.1 g/dL (6.5-8.0); Triglycerides 234 mg/dL
[2021-12-18 10:54] LABS: WBC Urine 0-2 /HPF (0-4)
[2021-12-18 10:55] LABS: Bacteria Urine TRACE /LPF; Mucus Urine TRACE /LPF; RBC Urine 0-2 /HPF (0); Squamous Epithelial Cell Urine TRACE /LPF
[2021-12-18 11:01] LABS: TSH reflex Free T4 1.29 uIU/mL (0.32-4.0); Vitamin D 25-OH Total 27.6 ng/mL (>30)
[2021-12-18 11:23] LABS: Folate 19.9 ng/mL (> or = 4.0); Vitamin B12 591 pg/mL (200-900)
== END 2021-12-18 09:28 | disposition home or self-care (01) ==
LOC: HO.XRAY 09:27
PROVIDERS: Absent Provider Internal Medicine; PCP Internal Medicine; Visit Provider Nurse Practitioner Family
DX: R05.9 Cough, unspecified (principal); K29.70 Gastritis, unspecified, without bleeding; R20.0 Anesthesia of skin; I10 Essential (primary) hypertension; E55.9 Vitamin D deficiency, unspecified; E78.00 Pure hypercholesterolemia, unspecified
CPT/HCPCS: 36415; 71046; 80053; 80061; 81001; 82306; 82607; 82746; 84443; 85025

== ENCOUNTER 2022-01-16 08:34 | Outpatient (REF) | payer OTHER, SELFPAY ==
[2022-01-16 08:47] LABS: MANUAL DIFF FLAG NO
[2022-01-16 09:07] LABS: Basophils Percent Auto 0.4 % (0-2); Eosinophils Absolute Auto 0.2 X10*3/uL (0.0-0.4); Eosinophils Percent Auto 2.9 % (0-4); Hemoglobin 14.2 g/dl (14.0-18.0); Imm Gran Abs Auto 0.03 X10*3/uL (0.00-0.03); Imm Gran Pct Auto 0.4 % (0.0-0.4); Lymphocytes Absolute Auto 2.3 X10*3/uL (1.2-4.9); Lymphocytes Percent Auto 32.7 % (20-40); Mean Corpuscular HGB Conc 31.6 g/dl (31.0-36.0); Mean Corpuscular Hemoglobin 25.2 pg (27.0-33.0); Mean Corpuscular Volume 79.9 fL (80.0-98.0); Mean Platelet Volume 10.7 fL (9.4-12.4); Monocytes Absolute Auto 0.5 X10*3/uL (0.1-1.2); Monocytes Percent Auto 7.3 % (2-11); Neutrophils Absolute Auto 3.9 x10*3/uL (2.0-8.3); Neutrophils Percent Auto 56.3 % (45-73); Platelet Count 227 X10*3/uL (160-400); Red Blood Count 5.63 X10*6/uL (4.60-5.80); Red Cell Distribution Width 15.6 % (11.0-16.0)
[2022-01-16 09:32] LABS: Alanine Aminotransferase 27 U/L (0-40); Albumin Level 4.2 g/dL (3.5-5.0); Alkaline Phosphatase 108 U/L (39-117); Anion Gap 14 (12-20); Aspartate Amino Transferase 23 U/L (5-37); Bilirubin Total 0.4 mg/dL (0.0-1.0); Blood Urea Nitrogen 11 mg/dL (9-16); C Reactive Protein 0.23 mg/dL (< or = 0.50); Calcium 9.7 mg/dL (8.4-10.2); Carbon Dioxide 25 mmol/L (22-29); Chloride 106 mmol/L (96-108); Cholesterol 184 mg/dL; Estimated Glomerular Filt Rate > 60; Glucose Fasting 104 mg/dL (60-99); HDL Cholesterol 32 mg/dL; LDL Cholesterol Calculated 102 mg/dl; Potassium 4.4 mmol/L (3.3-5.1); Sodium 141 mmol/L (135-145); Triglycerides 253 mg/dL
[2022-01-16 09:52] LABS: Erythrocyte Sedimentation Rate 10 MM/HR (0-15)
[2022-01-16 09:59] LABS: TSH reflex Free T4 1.73 uIU/mL (0.32-4.0); Vitamin D 25-OH Total 28.6 ng/mL (>30)
== END 2022-01-16 08:35 | disposition home or self-care (01) ==
LOC: HO.LAB 08:34
PROVIDERS: PCP Internal Medicine; Visit Provider Internal Medicine
DX: E78.00 Pure hypercholesterolemia, unspecified (principal); E55.9 Vitamin D deficiency, unspecified; M79.602 Pain in left arm; M79.7 Fibromyalgia; I10 Essential (primary) hypertension
CPT/HCPCS: 36415; 80053; 80061; 82306; 82550; 84443; 85025; 85652; 86140

== ENCOUNTER 2022-05-24 09:47 | Outpatient (REF) | payer OTHER, SELFPAY ==
[2022-05-24 11:56] LABS: Alanine Aminotransferase 23 U/L (0-40); Albumin Level 4.3 g/dL (3.5-5.0); Alkaline Phosphatase 100 U/L (39-117); Anion Gap 15 (12-20); Aspartate Amino Transferase 21 U/L (5-37); Bilirubin Total 0.5 mg/dL (0.0-1.0); Blood Urea Nitrogen 17 mg/dL (9-16); Calcium 9.4 mg/dL (8.4-10.2); Carbon Dioxide 25 mmol/L (22-29); Chloride 105 mmol/L (96-108); Cholesterol 168 mg/dL; Estimated Glomerular Filt Rate > 60; Glucose Fasting 102 mg/dL (60-99); HDL Cholesterol 33 mg/dL; LDL Cholesterol Calculated 96 mg/dl; Potassium 4.4 mmol/L (3.3-5.1); Sodium 141 mmol/L (135-145); Total Protein 6.7 g/dL (6.5-8.0); Triglycerides 199 mg/dL
[2022-05-24 12:01] LABS: Vitamin D 25-OH Total 25.8 ng/mL (>30)
== END 2022-05-24 09:48 | disposition home or self-care (01) ==
LOC: HO.LAB 09:47
PROVIDERS: PCP Internal Medicine; Visit Provider Internal Medicine
DX: E78.00 Pure hypercholesterolemia, unspecified (principal); E55.9 Vitamin D deficiency, unspecified
CPT/HCPCS: 36415; 80053; 80061; 82306; 84443

== ENCOUNTER 2022-08-09 10:01 | Outpatient (REF) | payer OTHER, SELFPAY ==
--- NOTE | ~2022-08-09 | XR_ITS ---
EXAMINATION: CT ABDOMEN AND PELVIS WITH CONTRAST XR LUMBAR SPINE: 3 VIEWS CLINICAL INFORMATION: Diffuse abdominal pain for 1. Worse today. Low back pain COMPARISON: 04/30/2022 10/04/2015 TECHNIQUE: Multidetector volumetric images were obtained from the superior aspect of the liver through the pubic symphysis following administration 85 mL of Omnipaque 350 intravenous contrast. Sagittal and coronal reformatted images were obtained on the technologist's workstation. Oral contrast: No This CT examination was performed using dose optimization techniques as appropriate, variously including the following: *Automated exposure control *Adjustment of mA and/or kV according to patient size (this includes techniques or standardized protocols for targeted exams where dose is matched to indication/reason for exam; i.e. extremities or head) *Use of iterative reconstruction technique DLP: 590 mGy-cm FINDINGS: LUNG BASES: The visualized lung bases are unremarkable. LIVER, GALLBLADDER, AND BILIARY TREE: The liver is normal in size, shape, and attenuation. No focal hepatic lesion or biliary ductal dilatation is present. The gallbladder is unremarkable with no evidence of radiopaque gallstones, gallbladder wall thickening, or obvious pericholecystic inflammatory changes. PANCREAS: Unremarkable. SPLEEN: Unremarkable. 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 KIDNEYS AND URETERS: The kidneys are normal in size, shape, and attenuation. No hydronephrosis, hydroureter, or calculi seen. No perinephric stranding. BLADDER: Unremarkable. GASTROINTESTINAL TRACT: The small and large bowel are unremarkable. The appendix is unremarkable. ABDOMINAL WALL: Small fat-containing indirect inguinal hernia on the left. Previous right inguinal hernia repair without evidence of recurrent hernia. LYMPH NODES: Normal. VASCULAR: Unremarkable. PELVIC VISCERA: Mild prostatomegaly. OSSEOUS STRUCTURES: No acute or suspicious osseous abnormalities. Vertebral body heights maintained. Small endplate osteophytes project anteriorly from L2-S1. Disc space heights relatively preserved. Sacroiliac joints unremarkable. XR/XR lumbar spine 2-3V IMPRESSION: * No acute findings within the abdomen or pelvis to explain the patient's symptomatology. 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 No follow-up required. * Small fat-containing indirect inguinal hernia on the left. * Previous right inguinal hernia repair without evidence of recurrent hernia. * No acute fracture or traumatic malalignment of the lumbar spine. Minimal discogenic degenerative disease as described.
[2022-08-09 10:19] LABS: MANUAL DIFF FLAG NO
[2022-08-09 10:37] LABS: Basophils Absolute Auto 0.1 X10*3/uL (0.0-0.2); Basophils Percent Auto 0.8 % (0-2); Eosinophils Absolute Auto 0.3 X10*3/uL (0.0-0.4); Eosinophils Percent Auto 3.3 % (0-4); Hematocrit 46.8 % (42.0-52.0); Hemoglobin 15.1 g/dl (14.0-18.0); Imm Gran Abs Auto 0.01 X10*3/uL (0.00-0.03); Imm Gran Pct Auto 0.1 % (0.0-0.4); Lymphocytes Absolute Auto 2.8 X10*3/uL (1.2-4.9); Lymphocytes Percent Auto 33.1 % (20-40); Mean Corpuscular HGB Conc 32.3 g/dl (31.0-36.0); Mean Corpuscular Hemoglobin 26.3 pg (27.0-33.0); Mean Corpuscular Volume 81.4 fL (80.0-98.0); Mean Platelet Volume 11.1 fL (9.4-12.4); Monocytes Absolute Auto 0.6 X10*3/uL (0.1-1.2); Monocytes Percent Auto 7.2 % (2-11); Neutrophils Absolute Auto 4.7 x10*3/uL (2.0-8.3); Neutrophils Percent Auto 55.5 % (45-73); Platelet Count 211 X10*3/uL (160-400); Red Blood Count 5.75 X10*6/uL (4.60-5.80); Red Cell Distribution Width 14.2 % (11.0-16.0); White Blood Count 8.5 X10*3/uL (4.8-10.8)
[2022-08-09 11:02] LABS: Alanine Aminotransferase 21 U/L (0-40); Albumin Level 4.4 g/dL (3.5-5.0); Alkaline Phosphatase 104 U/L (39-117); Anion Gap 12 (12-20); Aspartate Amino Transferase 21 U/L (5-37); Bilirubin Total 0.5 mg/dL (0.0-1.0); Blood Urea Nitrogen 15 mg/dL (9-16); Calcium 9.5 mg/dL (8.4-10.2); Carbon Dioxide 26 mmol/L (22-29); Chloride 106 mmol/L (96-108); Estimated Glomerular Filt Rate > 60; Glucose Random 117 mg/dL (60-115); Lipase 29 U/L (8-78); Sodium 140 mmol/L (135-145)
[2022-08-09 11:10] LABS: Erythrocyte Sedimentation Rate 7 MM/HR (0-15)
== END 2022-08-09 10:02 | disposition home or self-care (01) ==
LOC: HO.LAB 10:01
PROVIDERS: PCP Internal Medicine; Visit Provider Internal Medicine
DX: R10.84 Generalized abdominal pain (principal); M54.50 Low back pain, unspecified
CPT/HCPCS: 36415; 72100; 80053; 83690; 85025; 85652

== ENCOUNTER 2022-08-12 00:16 | Emergency (ER) | payer OTHER, SELFPAY ==
--- NOTE | ~2022-08-12 | CT_ITS ---
EXAMINATION: CT ABDOMEN AND PELVIS WITH CONTRAST XR LUMBAR SPINE: 3 VIEWS CLINICAL INFORMATION: Diffuse abdominal pain for 1. Worse today. Low back pain COMPARISON: 04/30/2022 10/04/2015 TECHNIQUE: Multidetector volumetric images were obtained from the superior aspect of the liver through the pubic symphysis following administration 85 mL of Omnipaque 350 intravenous contrast. Sagittal and coronal reformatted images were obtained on the technologist's workstation. Oral contrast: No This CT examination was performed using dose optimization techniques as appropriate, variously including the following: *Automated exposure control *Adjustment of mA and/or kV according to patient size (this includes techniques or standardized protocols for targeted exams where dose is matched to indication/reason for exam; i.e. extremities or head) *Use of iterative reconstruction technique DLP: 590 mGy-cm FINDINGS: LUNG BASES: The visualized lung bases are unremarkable. LIVER, GALLBLADDER, AND BILIARY TREE: The liver is normal in size, shape, and attenuation. No focal hepatic lesion or biliary ductal dilatation is present. The gallbladder is unremarkable with no evidence of radiopaque gallstones, gallbladder wall thickening, or obvious pericholecystic inflammatory changes. PANCREAS: Unremarkable. SPLEEN: Unremarkable. 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 KIDNEYS AND URETERS: The kidneys are normal in size, shape, and attenuation. No hydronephrosis, hydroureter, or calculi seen. No perinephric stranding. BLADDER: Unremarkable. GASTROINTESTINAL TRACT: The small and large bowel are unremarkable. The appendix is unremarkable. ABDOMINAL WALL: Small fat-containing indirect inguinal hernia on the left. Previous right inguinal hernia repair without evidence of recurrent hernia. LYMPH NODES: Normal. VASCULAR: Unremarkable. PELVIC VISCERA: Mild prostatomegaly. OSSEOUS STRUCTURES: No acute or suspicious osseous abnormalities. Vertebral body heights maintained. Small endplate osteophytes project anteriorly from L2-S1. Disc space heights relatively preserved. Sacroiliac joints unremarkable. CT/CT abdomen pelvis w IV con IMPRESSION: * No acute findings within the abdomen or pelvis to explain the patient's symptomatology. 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 No follow-up required. * Small fat-containing indirect inguinal hernia on the left. * Previous right inguinal hernia repair without evidence of recurrent hernia. * No acute fracture or traumatic malalignment of the lumbar spine. Minimal discogenic degenerative disease as described.
[2022-08-12 00:23] VITALS: BP 159/85; PULSE 94; RESP 18; TEMP 36.3; O2SAT 100; BMI 25.7
--- NOTE | 2022-08-12 00:55 | ED.ABDPAIN ---
HPI - Abdominal Pain General Chief Complaint: Abdominal Pain Stated Complaint: stomach pain Time Seen by Provider: 08/12/22 00:35 Source: patient Mode of arrival: ambulatory Limitations: no limitations History of Present Illness HPI narrative: 51-year-old male who presents emergency department for evaluation of diarrhea and abdominal pain patient states that approximately 3 weeks ago he developed diarrhea. He states that he had lose dark stool, 5-6 episodes per day for 2 weeks. States however the diarrhea resolved 1 week prior he states that over the past week he has had constant, stabbing abdominal pain over his entire abdomen. He states that the pain waxes and wanes in intensity from 5/10 to 10/10. The pain seems to get worse while he is eating immediately after eating. He denied any weight loss or weight gain. He denied fever or chills. He denied nausea or vomiting. He states that any movement of his abdomen makes the pain worse. The pain was worse this morning so he came to the emergency department for evaluation. Patient states that he was having chest pain in the past and was diagnosed with GERD and since being on omeprazole his chest pain is resolved. He denies heartburn like symptoms. He was seen by his PCP on 08/09/2022 for abdominal pain and spinal x-rays. He had a CBC, CMP and lipase which were unremarkable. Patient has screening colonoscopy 06/05/2021 which revealed 2 benign polyps and diverticulosis Related Data Home Medications Medication Instructions Recorded Confirmed aspirin 81 mg tablet 81 mg PO DAILY 05/29/20 08/09/22 multivitamin-ferrous 1 tab PO DAILY 10/18/20 08/09/22 fumarate-folic acid 18 mg-400 mcg tablet (Centrum) Previous Rx's Medication Instructions Recorded methylcellulose (laxative) 500 mg 500 mg PO DAILY #30 tabs 11/14/20 tablet (Citrucel) ezetimibe 10 mg tablet 10 mg PO DAILY 90 days #90 tabs 05/27/22 omeprazole 40 mg capsule,delayed 40 mg PO DAILY 90 days #90 caps 05/27/22 release pravastatin 40 mg tablet 40 mg PO DAILY 90 days #90 tabs 05/27/22 Allergies Allergy/AdvReac Type Severity Reaction Status Date / Time rosuvastatin [Crestor] AdvReac Intermediate myalgias Verified 08/09/22 09:24 Review of Systems Review of Systems Yes all other systems are reviewed and are negative PMFSH Past [facility] Narrative: Social history: Patient smokes 10 cigarettes per day for 35 years. He occasionally drinks alcohol. He denies drug use. Medical History Allergic rhinitis Elevated blood pressure reading Gastritis Insomnia Overweight (BMI 25.0-29.9) Pain in both feet Pure hypercholesterolemia Smoker Tubular adenoma Surgical History History of colonoscopy (~10/24/20) History of inguinal hernia repair History of vasectomy Hx of wisdom tooth extraction Family History Family History Father No problems noted. Mother No problems noted. Paternal Uncle History of stomach cancer Maternal Aunt Hx of breast cancer Son No problems noted. 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 [employer] Cognitive needs: No Hearing needs: No Vision needs: No Physical Exam ED Vital Signs: Vital Signs - 24 hr 08/12/22 00:23 08/12/22 01:56 08/12/22 04:00 Temperature 97.4 F 97.7 F 97.9 F Pulse Rate 94 84 75 Respiratory Rate 18 16 16 Blood Pressure 159/85 H 134/78 135/80 Pulse Oximetry 100 100 98 Oxygen Delivery Method Room Air Room Air Room Air BMI result Body Mass Index 25.7 Const General: cooperative and no acute distress Orientation/consciousness: oriented to person and oriented to place Limitations: no limitations HENMT Head: Yes normal to inspection, Yes normocephalic and Yes atraumatic Ears: external ears normal General nose exam: Normal external nose present Face and sinus: Yes normal facial exam Mouth: Normal oral and palatal mucosa present Throat: Yes posterior oropharynx normal Eyes General: appearance normal, both eyes and all related structures Pupils: Equal, round and reactive pupils present Neck Neck: Yes normal visual inspection, Yes no lymphadenopathy, Yes trachea midline and Yes supple Chest Chest palpation & inspection: normal inspection of the chest and normal palpation of entire chest wall Resp Effort & Inspection: normal respiratory effort and able to speak in complete sentences Auscultation: clear to auscultation bilaterally Cardio Rate: regular rate Rhythm: regular rhythm Heart sounds: S1 normal heart sound present, S2 normal heart sound present and no murmurs GI Inspection: Yes normal to inspection Palpation (GI): Soft to palpation, Tenderness to palpation present (GI) in the RLQ (Mild mild) and in the RUQ (Moderate) and no guarding Auscultation: normal bowel sounds General: Yes no CVA tenderness Back/Spine/Pelvis Back: no CVA tenderness Skin General skin exam: no rashes or lesions noted Neuro General: oriented to person and oriented to place Cranial nerves: Yes CN's II-XII intact bilaterally and Yes Equal, round and reactive pupils present Cognition (Neuro): normal cognition Motor exam (neuro): 5/5 motor strength present throughout Extrem General: Yes normal to inspection Psych Appearance: grossly normal Speech and movement: Normal speech and movement present Affect: normal affect Attitude: cooperative Thought process: Normal thought process present Thought content: Normal thought content present Medical Decision Making Medical Decision Making [facility] Narrative: 51-year-old male who presents emergency department for evaluation of diarrhea 3 weeks prior that lasts approximately 2 weeks and then resolved and abdominal pain x1 week. Patient complained of diffuse abdominal pain which got progressively worse, the pain waxed and waned between 5/10 in 05/20. On examination the patient does have moderate right upper quadrant and mild right lower quadrant tenderness. I ordered CBC, CMP, PT/INR, PTT, lipase, CT scan of the abdomen pelvis with IV contrast. Patient will be treated with Toradol 15 mg IV and normal saline 1 L IV. 0432: The patient got minimal improvement with the IV Toradol. The patient's laboratory revealed an elevated glucose of 158 and an elevated alk-phos of 129, these are nonspecific findings and do not explain the patient's pain. The patient's COVID-19, influenza and RSV tests were negative. The patient's CT scan of the abdomen pelvis did not reveal a clear cause for the patient's abdominal pain and there was no significant bony abnormalities noted by the radiologist. The patient was then given a GI cocktail of viscous lidocaine 10 cc, 10 cc and Maalox 30 cc with significant improvement his pain. My differential still includes gastritis and biliary colic and I did discuss this with the patient. Patient is already taking maximum dose of Prilosec 40 mg once a day. Patient was advised to take Gaviscon extra-strength before meals to see if this improves his pain. He will need an outpatient right upper quadrant ultrasound to evaluate for possible gallstones. Differential Diagnosis Differential includes was not limited to gastritis, diverticulitis, appendicitis, pancreatitis, colitis, partial small-bowel obstruction, cholecystitis, cholangitis, gallstones, biliary colic Lab Data [facility] Lab Attestation statement: I reviewed the patient's lab results. Please see the [facility] Section for my discussion of laboratory findings. Result Diagrams: 08/12/22 01:12 08/12/22 01:12 Labs: Lab Results 08/12/22 08/12/22 08/12/22 Range/Units 01:12 01:12 01:12 WBC 8.6 (4.8-10.8) X10*3/uL RBC 5.41 (4.60-5.80) X10*6/uL Hgb 14.4 (14.0-18.0) g/dl Hct 43.4 (42.0-52.0) % MCV 80.2 (80.0-98.0) fL MCH 26.6 L (27.0-33.0) pg MCHC 33.2 (31.0-36.0) g/dl RDW 14.2 (11.0-16.0) % Plt Count 212 (160-400) X10*3/uL MPV 10.8 (9.4-12.4) fL Immature Gran % (Auto) 0.2 (0.0-0.4) % Neut % (Auto) 47.8 (45-73) % Lymph % (Auto) 36.3 (20-40) % [place] % (Auto) 9.7 (2-11) % Eos % (Auto) 5.3 H (0-4) % Baso % (Auto) 0.7 (0-2) % Lymph # (Auto) 3.1 (1.2-4.9) X10*3/uL [place] # (Auto) 0.8 (0.1-1.2) X10*3/uL Eos # (Auto) 0.5 H (0.0-0.4) X10*3/uL Baso # (Auto) 0.1 (0.0-0.2) X10*3/uL Abs Immat Gran (auto) 0.02 (0.00-0.03) X10*3/uL Absolute Neuts (auto) 4.1 (2.0-8.3) x10*3/uL Absolute Nucleated RBC 0.000 (0.0-0.012) X10*3/uL Nucleated RBC % (auto) 0.0 (0.0-0.2) /100WBC PT 11.4 (10.0-13.1) SEC INR 1.0 (0.9-1.1) APTT 30.9 (26.0-36.4) SEC Sodium 138 (135-145) mmol/L Potassium 3.8 (3.3-5.1) mmol/L Chloride 105 (96-108) mmol/L Carbon Dioxide 25 (22-29) mmol/L Anion Gap 12 (12-20) BUN 15 (9-16) mg/dL Creatinine 0.86 (0.5-1.4) mg/dL Estim Creat Clear Calc 110.2 Estimated GFR > 60 Random Glucose 158 H (60-115) mg/dL Lactic Acid (0.5-2.0) mmol/L Calcium 9.3 (8.4-10.2) mg/dL Total Bilirubin 0.2 (0.0-1.0) mg/dL AST 22 (5-37) U/L ALT 25 (0-40) U/L Alkaline Phosphatase 129 H (39-117) U/L Total Protein 6.7 (6.5-8.0) g/dL Albumin 4.0 (3.5-5.0) g/dL Lipase 28 (8-78) U/L Urine Color Urine Appearance Urine pH (5.0-9.0) Ur Specific [place] (1.005-1.025) Urine Protein (Neg-Trace) mg/dL Urine Glucose (UA) (Negative) mg/dL Urine Ketones (Negative) mg/dL Urine Blood (Negative) Urine Nitrite (Negative) Ur Leukocyte Esterase (Negative) Influenza Type A (PCR) (Negative) Influenza Type B (PCR) (Negative) RSV RNA Qual (PCR) (Negative) SARS-CoV-2 RNA (RT-PCR) (Negative) 08/12/22 08/12/22 08/12/22 Range/Units 01:12 01:22 01:31 WBC (4.8-10.8) X10*3/uL RBC (4.60-5.80) X10*6/uL Hgb (14.0-18.0) g/dl Hct (42.0-52.0) % MCV (80.0-98.0) fL MCH (27.0-33.0) pg MCHC (31.0-36.0) g/dl RDW (11.0-16.0) % Plt Count (160-400) X10*3/uL MPV (9.4-12.4) fL Immature Gran % (Auto) (0.0-0.4) % Neut % (Auto) (45-73) % Lymph % (Auto) (20-40) % [place] % (Auto) (2-11) % Eos % (Auto) (0-4) % Baso % (Auto) (0-2) % Lymph # (Auto) (1.2-4.9) X10*3/uL [place] # (Auto) (0.1-1.2) X10*3/uL Eos # (Auto) (0.0-0.4) X10*3/uL Baso # (Auto) (0.0-0.2) X10*3/uL Abs Immat Gran (auto) (0.00-0.03) X10*3/uL Absolute Neuts (auto) (2.0-8.3) x10*3/uL Absolute Nucleated RBC (0.0-0.012) X10*3/uL Nucleated RBC % (auto) (0.0-0.2) /100WBC PT (10.0-13.1) SEC INR (0.9-1.1) APTT (26.0-36.4) SEC Sodium (135-145) mmol/L Potassium (3.3-5.1) mmol/L Chloride (96-108) mmol/L Carbon Dioxide (22-29) mmol/L Anion Gap (12-20) BUN (9-16) mg/dL Creatinine (0.5-1.4) mg/dL Estim Creat Clear Calc Estimated GFR Random Glucose (60-115) mg/dL Lactic Acid 1.3 (0.5-2.0) mmol/L Calcium (8.4-10.2) mg/dL Total Bilirubin (0.0-1.0) mg/dL AST (5-37) U/L ALT (0-40) U/L Alkaline Phosphatase (39-117) U/L Total Protein (6.5-8.0) g/dL Albumin (3.5-5.0) g/dL Lipase (8-78) U/L Urine Color Yellow Urine Appearance Clear Urine pH 6.5 (5.0-9.0) Ur Specific [place] 1.010 (1.005-1.025) Urine Protein Negative (Neg-Trace) mg/dL Urine Glucose (UA) Negative (Negative) mg/dL Urine Ketones Negative (Negative) mg/dL Urine Blood Negative (Negative) Urine Nitrite Negative (Negative) Ur Leukocyte Esterase Negative (Negative) Influenza Type A (PCR) NEGATIVE (Negative) Influenza Type B (PCR) NEGATIVE (Negative) RSV RNA Qual (PCR) NEGATIVE (Negative) SARS-CoV-2 RNA (RT-PCR) NEGATIVE (Negative) Independent Interpretation I performed an independent interpretation of an: CT Scan Interpretation: My independent interpretation of CT scan of the abdomen pelvis with IV contrast is that there was no acute finding to explain the patient's abdominal pain, no significant inflammatory changes noted around the gallbladder Radiology Impression Discussion of test interpretation with radiology: I have reviewed the radiologist's reading. Radiologist Impression: IMPRESSION: * No acute findings within the abdomen or pelvis to explain the patient's symptomatology. 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 No follow-up required. * Small fat-containing indirect inguinal hernia on the left. * Previous right inguinal hernia repair without evidence of recurrent hernia. * No acute fracture or traumatic malalignment of the lumbar spine. Minimal discogenic degenerative disease as described. Dictated By:Rene Pedro MDSigned By:<Electronically signed by Rene Pedro MD in [place]>08/12/22 0248 Independent Historian Clinical information obtained from an independent historian. History obtained from or confirmed by: Spouse External Record Review External record reviewed: Office record (GI visit 06/05/2021, PCP visit 08/09/2022) Tests considered The following testing was considered but not selected: Right upper quadrant ultrasound Medications Administered Discontinued Medications Generic Name Dose Route Start Last Admin Trade Name Freq PRN Reason Stop Dose Admin Al Hydroxide/Mg Hydroxide 30 ml 08/12/22 03:27 08/12/22 03:35 Magnesium Hydrox/Alum Hydrox 30 Ml Oral.Susp PO 08/12/22 03:28 30 ml ONCE ONE Administration Belladonna Alkaloids/Phenobarbital 10 ml 08/12/22 03:27 08/12/22 03:36 Phenobarb/Hyoscy/Atropine/Scop 10 Ml Elixir PO 08/12/22 03:28 10 ml ONCE ONE Administration Sodium Chloride 1,000 mls @ 999 mls/hr 08/12/22 00:55 08/12/22 02:36 Ns IV 08/12/22 01:55 Infused .Q1H1M STA Infusion Iohexol 85 ml 08/12/22 02:18 08/12/22 02:19 Iohexol 350 Mg/Ml 100 Ml Infus..Btl IV 08/12/22 02:19 85 ml ONCE ONE Administration Ketorolac Tromethamine 15 mg 08/12/22 00:55 08/12/22 01:19 Ketorolac Tromethamine 15 Mg/Ml Vial IVPUSH 08/12/22 00:56 15 mg ONCE STA Administration Lidocaine HCl 10 ml 08/12/22 03:27 08/12/22 03:35 Lidocaine Hcl Viscous 2 % 15 Ml Solution PO 08/12/22 03:28 10 ml ONCE ONE Administration Discharge Plan Discharge Clinical Impression: Abdominal pain Qualifiers: Abdominal location: generalized Qualified Code(s): R10.84 - Generalized abdominal pain Gastritis Qualifiers: Gastritis type: unspecified gastritis Chronicity: acute Gastritis bleeding: without bleeding Qualified Code(s): K29.00 - Acute gastritis without bleeding Patient Disposition: Home, Self-Care Instructions: Gastritis (ED), Biliary Colic (ED) Additional Instructions: Your blood work was unremarkable. The CT scan of your abdomen pelvis with IV contrast did not reveal a clear cause for your pain. The GI cocktail of viscous lidocaine, and Maalox seem to improve your pain suggesting that your pain may be caused by the inflammation of your stomach/gastritis. Your on the maximum dose of omeprazole at this time. I want you to take extra-strength Gaviscon before meals and at bedtime for 1 week to see if this improves her symptoms. As an outpatient, your doctor needs to order a fasting ultrasound of your gallbladder to see if you have gallstones. Follow-up with your doctor in 2 days. Please return to the emergency department if your symptoms get worse or if you develop any symptoms that are concerning to you. Prescriptions: No Action aspirin 81 mg Tablet 81 mg PO DAILY Centrum 18-400 mg-mcg Tablet 1 tab PO DAILY pravastatin 40 mg tablet 40 mg PO DAILY 90 Days Qty: 90 3RF omeprazole 40 mg capsule,delayed release(DR/EC) 40 mg PO DAILY 90 Days Qty: 90 3RF ezetimibe 10 mg tablet 10 mg PO DAILY 90 Days Qty: 90 3RF Citrucel 500 mg tablet 500 mg PO DAILY Qty: 30 5RF
[2022-08-12 01:18] LABS: MANUAL DIFF FLAG NO
[2022-08-12 01:19] LABS: Basophils Absolute Auto 0.1 X10*3/uL (0.0-0.2); Basophils Percent Auto 0.7 % (0-2); Eosinophils Absolute Auto 0.5 X10*3/uL (0.0-0.4); Eosinophils Percent Auto 5.3 % (0-4); Hematocrit 43.4 % (42.0-52.0); Hemoglobin 14.4 g/dl (14.0-18.0); Imm Gran Abs Auto 0.02 X10*3/uL (0.00-0.03); Imm Gran Pct Auto 0.2 % (0.0-0.4); Lymphocytes Absolute Auto 3.1 X10*3/uL (1.2-4.9); Lymphocytes Percent Auto 36.3 % (20-40); Mean Corpuscular HGB Conc 33.2 g/dl (31.0-36.0); Mean Corpuscular Hemoglobin 26.6 pg (27.0-33.0); Mean Corpuscular Volume 80.2 fL (80.0-98.0); Mean Platelet Volume 10.8 fL (9.4-12.4); Monocytes Absolute Auto 0.8 X10*3/uL (0.1-1.2); Monocytes Percent Auto 9.7 % (2-11); Neutrophils Absolute Auto 4.1 x10*3/uL (2.0-8.3); Neutrophils Percent Auto 47.8 % (45-73); Platelet Count 212 X10*3/uL (160-400); Red Blood Count 5.41 X10*6/uL (4.60-5.80); Red Cell Distribution Width 14.2 % (11.0-16.0); White Blood Count 8.6 X10*3/uL (4.8-10.8)
[2022-08-12] MEDS: 0.9 % Sodium Chloride 1,000 ML 999 ML IV (01:19)
[2022-08-12] MEDS: Ketorolac Tromethamine 15 MG/ML VIAL IVPUSH (01:19)
[2022-08-12 01:26] LABS: Prothrombin Time 11.4 SEC (10.0-13.1)
[2022-08-12 01:29] LABS: Partial Thromboplastin Time 30.9 SEC (26.0-36.4)
[2022-08-12 01:29] LABS: Appearance Urine Clear; Color Urine Yellow; Glucose Urine UA Negative (Negative); Leukocyte Esterase Urine Negative (Negative); Nitrite Urine Negative (Negative); PH 6.5 (5.0-9.0); Urine Blood Negative (Negative); Urine Ketones Negative (Negative); Urine Protein Negative (Neg-Trace)
[2022-08-12 01:40] LABS: Lactic Acid 1.3 mmol/L (0.5-2.0)
[2022-08-12 01:48] LABS: Alanine Aminotransferase 25 U/L (0-40); Alkaline Phosphatase 129 U/L (39-117); Anion Gap 12 (12-20); Aspartate Amino Transferase 22 U/L (5-37); Bilirubin Total 0.2 mg/dL (0.0-1.0); Blood Urea Nitrogen 15 mg/dL (9-16); Calcium 9.3 mg/dL (8.4-10.2); Carbon Dioxide 25 mmol/L (22-29); Chloride 105 mmol/L (96-108); Creatinine Clr Calc Pharmacy 110.2; Estimated Glomerular Filt Rate > 60; Glucose Random 158 mg/dL (60-115); Lipase 28 U/L (8-78); Potassium 3.8 mmol/L (3.3-5.1); Sodium 138 mmol/L (135-145); Total Protein 6.7 g/dL (6.5-8.0)
[2022-08-12 01:56] VITALS: BP 134/78; PULSE 84; RESP 16; TEMP 36.5; O2SAT 100
--- NOTE | 2022-08-12 02:02 | PC.NURSE ---
Pt. arrived c/o pain in the abdomen. Pain reported to be tolerable and unnoticeable at rest. Pain increases to 10/10 with movement. IV line started, labs drawn, NS running and medicated with ketorolac per MAR. Pt. reports feeling comfortable after pain medications.
[2022-08-12 02:13] LABS: Influenza A PCR NEGATIVE (Negative); Influenza B PCR NEGATIVE (Negative); Resp Syncy Virus RNA Qual PCR NEGATIVE (Negative); SARS COV2 PCR INHOUSE NEGATIVE (Negative)
[2022-08-12] MEDS: iohexoL 350 MG/ML 100 ML INFUS..BTL 85 ML IV (02:19)
[2022-08-12] MEDS: Magnesium Hydrox/Alum Hydrox 30 ML ORAL.SUSP PO (03:35)
[2022-08-12] MEDS: Lidocaine HCl Viscous 2 % 15 ML SOLUTION 10 ML PO (03:35)
[2022-08-12] MEDS: PHENobarb/Hyoscy/Atropine/Scop 10 ML ELIXIR PO (03:36)
[2022-08-12 04:00] VITALS: BP 135/80; PULSE 75; RESP 16; TEMP 36.6; O2SAT 98
== END 2022-08-12 04:54 | disposition home or self-care (01) ==
PROVIDERS: Emergency Provider Emergency Medicine Emergency Medical Services
DX: K29.00 Acute gastritis without bleeding (principal); R10.84 Generalized abdominal pain; Z20.828 Contact with and (suspected) exposure to other viral communicable diseases; E78.00 Pure hypercholesterolemia, unspecified; F17.210 Nicotine dependence, cigarettes, uncomplicated; Z79.82 Long term (current) use of aspirin; Z79.02 Long term (current) use of antithrombotics/antiplatelets; Z79.899 Other long term (current) drug therapy
CPT/HCPCS: 0241U; 36415; 74177; 80053; 81003; 83605; 83690; 85025; 85610; 85730; 96361; 96374; 99284; 99285; J1885; Q9967

== ENCOUNTER 2022-08-16 09:47 | Outpatient (REF) | payer OTHER, SELFPAY ==
--- NOTE | ~2022-08-16 | US_ITS ---
EXAMINATION: US ABDOMEN COMPLETE CLINICAL INFORMATION: Generalized abdominal pain. COMPARISON: CT abdomen and pelvis 08/12/2022. Limited abdominal ultrasound 07/07/2021. TECHNIQUE: Real-time imaging of the abdominal viscera. FINDINGS: PANCREAS: The visualized pancreas is normal in size and contour and echogenicity. Portion pancreatic tail obscured by bowel gas and not completely imaged. No pancreatic ductal distention or retroperitoneal effusion. ABDOMINAL AORTA: The proximal, mid, and distal segments are normal in caliber. INFERIOR VENA CAVA: Visualized portions are normal. LIVER: Normal. The liver is normal in size. The liver contour is normal. Parenchymal echogenicity is normal. No focal hepatic lesion. There is no intrahepatic biliary duct dilatation seen. GALLBLADDER: Normal. The gallbladder is physiologically distended without evidence of stones, sludge, polyps, wall thickening or pericholecystic fluid. COMMON BILE DUCT: Normal in caliber measuring 0.4 cm in diameter. RIGHT KIDNEY: Normal. No hydronephrosis. No renal calculi or focal parenchymal lesions. The kidney measures 10.8 cm in maximum dimension. LEFT KIDNEY: Normal. No hydronephrosis. No renal calculi or focal parenchymal lesions. The kidney measures 10.8 cm in maximum dimension. SPLEEN: Normal. The spleen measures 9.6 cm in maximum dimension. FREE FLUID: None. US/US abdomen complete IMPRESSION: -Unremarkable exam.
== END 2022-08-16 09:48 | disposition home or self-care (01) ==
LOC: HO.HMGCX 09:47
PROVIDERS: PCP Internal Medicine; Visit Provider Internal Medicine
DX: R10.84 Generalized abdominal pain (principal)
CPT/HCPCS: 76700

== ENCOUNTER 2022-08-21 10:22 | Outpatient (REF) | payer OTHER, SELFPAY ==
[2022-08-21 13:13] LABS: C Reactive Protein 0.16 mg/dL (< or = 0.50); Gamma Glutamyl Transpeptidase 57 U/L (11-51)
[2022-08-21 13:47] LABS: Folate 16.9 ng/mL (> or = 4.0); Vitamin B12 861 pg/mL (200-900)
[2022-08-26 15:48] LABS: Vitamin D 25-OH, D2 <4 ng/mL; Vitamin D 25-OH, D3 28 ng/mL; Vitamin D 25-OH, Total 28 ng/mL (30-100)
== END 2022-08-21 10:23 | disposition home or self-care (01) ==
LOC: HO.LAB 10:22
PROVIDERS: PCP Internal Medicine; Visit Provider Nurse Practitioner Family
DX: R10.84 Generalized abdominal pain (principal); R19.7 Diarrhea, unspecified; K58.2 Mixed irritable bowel syndrome; K21.9 Gastro-esophageal reflux disease without esophagitis; E55.9 Vitamin D deficiency, unspecified; R74.8 Abnormal levels of other serum enzymes
CPT/HCPCS: 36415; 82306; 82607; 82746; 82977; 86140

== ENCOUNTER 2022-08-22 09:20 | Outpatient (REF) | payer OTHER, SELFPAY | END 2022-08-22 09:21 | disposition home or self-care (01) | LOC: HO.LNP 09:20 | PROVIDERS: Visit Provider Nurse Practitioner Family | DX: R10.9 Unspecified abdominal pain (principal) | CPT/HCPCS: 82656; 87338 ==

== ENCOUNTER → 2022-09-25 10:14 | Outpatient (BNVA) | payer OTHER, SELFPAY | PROVIDERS: PCP Internal Medicine; Visit Provider Nurse Practitioner Family | DX: Z13.89 Encounter for screening for other disorder (principal) ==

== ENCOUNTER 2022-11-26 08:44 | Outpatient (REF) | payer OTHER, SELFPAY ==
[2022-11-26 10:12] LABS: Alanine Aminotransferase 28 U/L (0-40); Albumin Level 4.2 g/dL (3.5-5.0); Alkaline Phosphatase 101 U/L (39-117); Anion Gap 12 (12-20); Aspartate Amino Transferase 23 U/L (5-37); Bilirubin Total 0.5 mg/dL (0.0-1.0); Blood Urea Nitrogen 20 mg/dL (9-16); Calcium 9.4 mg/dL (8.4-10.2); Carbon Dioxide 27 mmol/L (22-29); Chloride 106 mmol/L (96-108); Cholesterol 208 mg/dL; Estimated Glomerular Filt Rate > 60; Glucose Fasting 101 mg/dL (60-99); HDL Cholesterol 33 mg/dL; LDL Cholesterol Calculated 105 mg/dl; Potassium 4.4 mmol/L (3.3-5.1); Sodium 141 mmol/L (135-145); Total Protein 6.6 g/dL (6.5-8.0); Triglycerides 351 mg/dL
[2022-11-26 10:22] LABS: Appearance Urine Clear; Color Urine Yellow; Glucose Urine UA Negative (Negative); Leukocyte Esterase Urine Negative (Negative); Nitrite Urine Negative (Negative); Urine Blood Negative (Negative); Urine Ketones Negative (Negative); Urine Protein Negative (Neg-Trace)
[2022-11-26 10:28] LABS: Prostate Specific Antigen Scr 1.48 ng/mL (<0.05-4.0); Vitamin D 25-OH Total 35.7 ng/mL (>30)
== END 2022-11-26 08:45 | disposition home or self-care (01) ==
LOC: HO.LAB 08:44
PROVIDERS: PCP Internal Medicine; Visit Provider Internal Medicine
DX: Z00.00 Encounter for general adult medical examination without abnormal findings (principal); Z12.5 Encounter for screening for malignant neoplasm of prostate; R30.0 Dysuria; E78.00 Pure hypercholesterolemia, unspecified; E55.9 Vitamin D deficiency, unspecified
CPT/HCPCS: 36415; 80053; 80061; 81003; 82306; 84153; 84443

== ENCOUNTER 2023-04-16 14:57 | Outpatient (AMB) | payer OTHER, SELFPAY ==
[2023-04-16 14:59] VITALS: BP 124/70; PULSE 101; O2SAT 98; BMI 26.0
--- NOTE | 2023-04-16 14:59 | A.OFFPC_ITS ---
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 Required: No Accompanied by: Self / Same As Patient Allergies rosuvastatin [Crestor] Adverse Reaction (Intermediate, Verified 04/21/23 12:11) myalgias Medication List - Last Reconciled 04/21/23 by Harinder Fuller MD aspirin 81 mg PO DAILY cholecalciferol (vitamin D3) 50 mcg PO DAILY 90 days ezetimibe 10 mg PO DAILY 90 days tjiqagzifskp-brhk-uqegz acid 18-400 mg-mcg (Centrum) 1 tab PO DAILY omeprazole 40 mg PO DAILY 90 days pravastatin 40 mg PO DAILY 90 days Tobacco use date assessed: 04/16/23 Dental Screening Dental Screen Date: 04/16/23 Did you have a dental visit in the last 12 months?: Yes Did you have a dental problem in the last 6 months where you did not have access to dental care?: No Was dental information given to patient?: Patient has dentist HPI hyperlipidemia, gastritis HPI Details Patient comes in today for his follow up visit States that he currently feels okay He denies any headaches or dizziness Denies any chest pains, no SOB No nausea/vomiting, no abdominal pain - states that his previous GI symptoms have completely resolved No change in bowel habits noted Needs a few of his Rx refilled Does not had any follow up labs done recently [facility] Medical History (Updated 04/21/23 @ 12:23 by Harinder Fuller MD) Vitamin D deficiency Gastritis Tubular adenoma Pain in both feet Insomnia Overweight (BMI 25.0-29.9) Smoker Elevated blood pressure reading Allergic rhinitis Pure hypercholesterolemia Surgical History History of colonoscopy (~10/24/20) Hx of wisdom tooth extraction History of inguinal hernia repair History of vasectomy Family History Father No problems noted. Mother No problems noted. Paternal Uncle History of stomach cancer Maternal Aunt Hx of breast cancer Son No problems noted. 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 Cognitive needs: No Hearing needs: No Vision needs: No Questionnaire PHQ-9 Over the last 2 weeks, how often have you been bothered by any of the following problems? 1. Little interest or pleasure in doing things: not at all 2. Feeling down, depressed, or hopeless: not at all 3. Trouble falling or staying asleep, or sleeping too much: not at all 4. Feeling tired or having little energy: not at all 5. Poor appetite or overeating: not at all 6. Feeling bad about yourself - or that you are a failure or have let yourself or your family down: not at all 7. Trouble concentrating on things, such as reading the newspaper or watching television: not at all 8. Moving or speaking so slowly that other people could have noticed. Or the opposite - being so fidgety or restless that you have been moving around a lot more than usual: not at all 9. Thoughts that you would be better off or of hurting yourself in some way: not at all Total score: 0 Depression Screening Interpretation: Negative 14881 - PHQ-9 Billing: Yes Source: Developed by Drs. Andrés Narayan, Caitlyn Espino, Kalyan Savage and colleagues, with an educational laz from [employer] Thrive Questionnaire Date Thrive assessed: 04/16/23 I am a: Patient What is your living situation today?: I have a steady place to live Within the past 12 months, did the food you bought not last and you didn't have the money to get more?: Never true Within the past 12 months, did you worry whether your food would run out before you got money to buy more?: Never true Do you have trouble paying for medicines?: No Do you have trouble getting transportation to medical appointments?: No Do you have trouble paying your heating and electricity bill?: No Do you have trouble taking care of your child, family member or friend?: No Do you have trouble with day-to-day activities such as bathing, preparing meals, shopping, managing finances, etc.?: No Are you currently unemployed and looking for a job?: No Are you interested in more education?: No Please select the resources that you would like help with: None Currently or been in a relationship where the following occur: no concerns reported AUDIT C Alcohol Use Questionnaire (AUDIT-C) 1. How often do you have a drink containing alcohol?: 2-4 times a month 2. How many drinks containing alcohol do you have on a typical day when you are drinking?: 3 or 4 3. How often do you have six or more drinks on one occasion?: Never Total Score: 3 Score Reviewed/Action Taken: Yes EMEKA-7 AMB Questionnaire EMEKA-7 Date EMEKA - 7 assessed: 04/16/23 Feeling nervous, anxious, or on edge: 0 = Not at all Not being able to stop or control worryin = Not at all Worrying too much about different things: 0 = Not at all Trouble relaxin = Not at all Being so restless that it is hard to sit still: 0 = Not at all Becoming easily annoyed or irritable: 0 = Not at all Feeling afraid as if something awful might happen: 0 = Not at all Total EMEKA-7 score (0-4 normal; 5-9 mild; 10-14 moderate; 15-21 severe): 0 Source: Developed by Drs. Andrés Narayan, Caitlyn Espino, Kalyan Savage and colleagues, with an educational laz from [employer] Review of Systems Const Denies chills, Denies fatigue, Denies fever(s) and Denies headache(s) ENT Denies dysphagia, Denies dizziness, Denies otalgia, Denies headache(s), Denies neck pain, Denies odynophagia and Denies sore throat Card Denies chest pain, Denies palpitations and Denies dyspnea Resp Denies cough and Denies dyspnea GI Denies abdominal pain, Denies constipation, Denies dysphagia, Denies heartburn, Denies diarrhea, Denies nausea, Denies odynophagia and Denies vomiting Denies dysuria, Denies nocturia and Denies urinary frequency Musc Denies neck pain Neuro Denies dizziness and Denies headache(s) Endo Denies fatigue and Denies palpitations Physical exam (Primary Care) Vital Signs: Last Vital Signs Pulse 101 H 04/16/23 14:59 BP 124/70 04/16/23 14:59 Pulse Ox 98 04/16/23 14:59 Oxygen Delivery Method Room Air 04/16/23 14:59 BMI result Body Mass Index 26.0 Tobacco/Smoking Status: Tobacco use Status Tobacco use date assessed 04/16/23 04/16/23 15:07 Patient Tobacco Use Status Current everyday Tobacco 04/16/23 15:07 e-Cigarette/Vaping Use Never Used 04/16/23 15:07 PHQ-9: PHQ-9 Score PHQ-9: Total score 0 04/16/23 15:59 Depression Screening Interpretation: Negative Thrive Assessment: Date of Thrive Assessment Date Thrive assessed 04/16/23 04/16/23 15:07 Currently or been in a relationship where the following occur: no concerns reported Const General: no acute distress and alert HENMT Ears: TM's normal bilaterally and EAC's normal Throat: Yes posterior oropharynx normal and Yes tonsils normal (no TP congestion) Neck Neck: Yes no lymphadenopathy and Yes supple Resp Auscultation: clear to auscultation bilaterally, no rales and no wheezes Cardio Rate: regular rate Rhythm: regular rhythm Heart sounds: no murmurs GI Palpation (GI): Soft to palpation, nontender and No hepatosplenomegaly present Skin General skin exam: no rashes or lesions noted Extrem General: Yes no clubbing, cyanosis or edema Assessment and Plan Assessment & Plan (1) Pure hypercholesterolemia: Code(s): E78.00 - Pure hypercholesterolemia, unspecified Plan: Will have patient get his follow up labs done MESERET to recheck his fasting lipids Reinforced low-cholesterol diet Continue Pravastatin 40 mg QD and Ezetimibe 10 mg QD - Rx refilled Will recheck his labs and fasting lipids again in 3 to 4 months for follow-up (2) Elevated blood pressure reading: Code(s): R03.0 - Elevated blood-pressure reading, without diagnosis of hypertension Plan: His BP appears much better today Reinforced low sodium diet Patient is reminded to check and monitor his blood pressure regularly (3) Gastritis: Comment: S/P 14-days Tx with Bismuth, Flagyl and Doxycycline for H. pylori Code(s): K29.70 - Gastritis, unspecified, without bleeding Qualifiers: Chronicity: unspecified Gastritis bleeding: without bleeding Gastritis type: unspecified gastritis Qualified Code(s): K29.70 - Gastritis, unspecified, without bleeding Plan: S/P Tx for H. pylori x 14 days last year (2021) - states that his GI symptoms have improved a lot since his Tx Dietary restrictions reinforced Continue Omeprazole 40 mg QD Follow up with GI as scheduled (4) Allergic rhinitis: Code(s): J30.9 - Allergic rhinitis, unspecified Qualifiers: Allergic rhinitis seasonality: unspecified Allergic rhinitis trigger: other Qualified Code(s): J30.89 - Other allergic rhinitis Plan: Continue Loratadine 10 mg QD PRN (5) Vitamin D deficiency: Code(s): E55.9 - Vitamin D deficiency, unspecified Plan: Continue Vitamin D3 2000 units QD - Rx refilled (6) Insomnia: Code(s): G47.00 - Insomnia, unspecified Qualifiers: Insomnia type: primary Qualified Code(s): F51.01 - Primary insomnia Plan: Sleep hygiene reinforced (7) Smoker: Code(s): F17.200 - Nicotine dependence, unspecified, uncomplicated Plan: Counseled again on smoking cessation (8) Overweight (BMI 25.0-29.9): Code(s): E66.3 - Overweight Plan: Reinforced diet/exercise as tolerated/lose weight Plan To return as scheduled in August 2023 for his next annual physical examination Orders: Orders UA CC w/rflx Micro + Cult 07/25/23 K29.70 - Gastritis, unspecified, without bleeding, R30.0 - Dysuria, Z00.00 - Encounter for general adult medical examination without abnormal findings Comprehensive [place]. Panel Fast 04/16/23 E78.00 - Pure hypercholesterolemia, unspecified Lipid Panel 04/16/23 E78.00 - Pure hypercholesterolemia, unspecified Complete Blood Count Auto Diff 07/25/23 K29.70 - Gastritis, unspecified, without bleeding, Z00.00 - Encounter for general adult medical examination without abnormal findings Comprehensive [place]. Panel Fast 07/25/23 E78.00 - Pure hypercholesterolemia, unspecified, K29.70 - Gastritis, unspecified, without bleeding, Z00.00 - Encounter for general adult medical examination without abnormal findings Lipid Panel 07/25/23 E78.00 - Pure hypercholesterolemia, unspecified, K29.70 - Gastritis, unspecified, without bleeding, Z00.00 - Encounter for general adult medical examination without abnormal findings TSH reflex Free T4 07/25/23 E78.00 - Pure hypercholesterolemia, unspecified, K29.70 - Gastritis, unspecified, without bleeding, Z00.00 - Encounter for general adult medical examination without abnormal findings Prostate Specific Antigen Scr 07/25/23 Z00.00 - Encounter for general adult medical examination without abnormal findings Vitamin D 25-OH Total 07/25/23 E55.9 - Vitamin D deficiency, unspecified, Z00.00 - Encounter for general adult medical examination without abnormal findings Medications: Refilled cholecalciferol (vitamin D3) 50 mcg PO DAILY 90 days 90 caps 3RF E55.9 - Vitamin D deficiency, unspecified ezetimibe 10 mg PO DAILY 90 days 90 tabs 3RF pravastatin 40 mg PO DAILY 90 days 90 tabs 3RF Coding Level of Care Code Est Pt Level 4 (84605) Diagnoses Pure hypercholesterolemia E78.00 Elevated blood pressure reading R03.0 Gastritis without bleeding, unspecified chronicity, unspecified gastritis type K29.70 Chronicity: unspecified Gastritis bleeding: without bleeding Gastritis type: unspecified gastritis Allergic rhinitis due to other allergic trigger, unspecified seasonality J30.89 Allergic rhinitis seasonality: unspecified Allergic rhinitis trigger: other Vitamin D deficiency E55.9 Primary insomnia F51.01 Insomnia type: primary Smoker F17.200 Overweight (BMI 25.0-29.9) E66.3
== END 2023-04-16 16:06 | disposition home or self-care (01) ==
PROVIDERS: PCP Internal Medicine; Visit Provider Internal Medicine
DX: E78.00 Pure hypercholesterolemia, unspecified (principal); E55.9 Vitamin D deficiency, unspecified; F17.210 Nicotine dependence, cigarettes, uncomplicated; R03.0 Elevated blood-pressure reading, without diagnosis of hypertension; K29.70 Gastritis, unspecified, without bleeding; J30.89 Other allergic rhinitis; F51.01 Primary insomnia; E66.3 Overweight
CPT/HCPCS: 99214

== ENCOUNTER 2023-05-02 07:31 | Outpatient (REF) | payer OTHER, SELFPAY ==
[2023-05-02 10:02] LABS: Alanine Aminotransferase 19 U/L (0-40); Albumin Level 4.1 g/dL (3.5-5.0); Alkaline Phosphatase 97 U/L (39-117); Anion Gap 13 (12-20); Aspartate Amino Transferase 19 U/L (5-37); Bilirubin Total 0.4 mg/dL (0.0-1.0); Blood Urea Nitrogen 13 mg/dL (9-16); Calcium 9.3 mg/dL (8.4-10.2); Carbon Dioxide 25 mmol/L (22-29); Chloride 108 mmol/L (96-108); Cholesterol 159 mg/dL (<200); Estimated Glomerular Filt Rate > 60; Glucose Fasting 84 mg/dL (60-99); HDL Cholesterol 31 mg/dL (>40); LDL Cholesterol Calculated 82 mg/dL (<100); Potassium 3.8 mmol/L (3.3-5.1); Sodium 142 mmol/L (135-145); Total Protein 6.8 g/dL (6.5-8.0); Triglycerides 230 mg/dL (<150)
== END 2023-05-02 07:32 | disposition home or self-care (01) ==
LOC: HO.LAB 07:31
PROVIDERS: PCP Internal Medicine; Visit Provider Internal Medicine
DX: E78.00 Pure hypercholesterolemia, unspecified (principal)
CPT/HCPCS: 36415; 80053; 80061

== ENCOUNTER 2023-05-28 12:33 | Outpatient (AMB) | payer OTHER, SELFPAY ==
--- NOTE | 2023-05-28 13:23 | AM.OFFVISNUR ---
Intake Intake Visit Reasons: PPD Plant Allergies rosuvastatin [Crestor] Adverse Reaction (Intermediate, Verified 04/21/23 12:11) myalgias Office Meds tuberculin PPD 5 tub. unit/0.1 mL intradermal injection solution Performing Provider: Harinder Fuller MD [facility] Administered by: Hi Pagan RN on 05/28/23 13:05 Dose Route Admin Location Dispensed Lot Number Expiration Date [place] [employer] 0.1 mL intradermal left forearm 0.1 mL [id number] 06/09/26 20608-512-26 [employer] Comments: patient consented for PPD plant. tolerated well. will return in 48 hours for reading. Coding Assessment & Plan Assessment & Plan Orders: Orders AMB PPD Planted Today Z11.1 - Encounter for screening for respiratory tuberculosis
== END 2023-05-28 13:10 | disposition home or self-care (01) ==
PROVIDERS: PCP Internal Medicine; Visit Provider Internal Medicine
DX: Z11.1 Encounter for screening for respiratory tuberculosis (principal)
CPT/HCPCS: 86580

== ENCOUNTER 2023-09-09 08:42 | Outpatient (REF) | payer OTHER, SELFPAY ==
[2023-09-09 08:58] LABS: MANUAL DIFF FLAG NO
[2023-09-09 09:36] LABS: Basophils Absolute Auto 0.1 X10*3/uL (0.0-0.2); Basophils Percent Auto 0.7 % (0-2); Eosinophils Absolute Auto 0.4 X10*3/uL (0.0-0.4); Eosinophils Percent Auto 4.4 % (0-4); Hematocrit 45.9 % (42.0-52.0); Hemoglobin 14.8 g/dl (14.0-18.0); Imm Gran Abs Auto 0.03 X10*3/uL (0.00-0.03); Imm Gran Pct Auto 0.4 % (0.0-0.4); Lymphocytes Absolute Auto 2.9 X10*3/uL (1.2-4.9); Lymphocytes Percent Auto 34.6 % (20-40); Mean Corpuscular HGB Conc 32.2 g/dl (31.0-36.0); Mean Corpuscular Hemoglobin 26.3 pg (27.0-33.0); Mean Corpuscular Volume 81.7 fL (80.0-98.0); Mean Platelet Volume 11.3 fL (9.4-12.4); Monocytes Absolute Auto 0.6 X10*3/uL (0.1-1.2); Neutrophils Absolute Auto 4.5 x10*3/uL (2.0-8.3); Neutrophils Percent Auto 52.9 % (45-73); Platelet Count 197 X10*3/uL (160-400); Red Blood Count 5.62 X10*6/uL (4.60-5.80); Red Cell Distribution Width 14.3 % (11.0-16.0); White Blood Count 8.4 X10*3/uL (4.8-10.8)
[2023-09-09 09:44] LABS: Appearance Urine Clear; Color Urine Yellow; Glucose Urine UA Negative (Negative); Leukocyte Esterase Urine Negative (Negative); Nitrite Urine Negative (Negative); PH 5.5 (5.0-9.0); Specific Gravity - Urine 1.025 (1.005-1.025); UMIC TRIGGER UACC YES; Urine Blood Small (1+) (Negative); Urine Ketones Negative (Negative); Urine Protein Negative (Neg-Trace)
[2023-09-09 09:50] LABS: Bacteria Urine None Seen (None Seen); Hyaline Casts Urine 0-2 /LPF (0-2); RBC Urine 0-2 /HPF (0-2); Squamous Epithelial Cell Urine 0-2 /HPF (0-2); WBC Urine 0-5 /HPF (0-5)
[2023-09-09 10:06] LABS: Alanine Aminotransferase 24 U/L (0-40); Albumin Level 4.2 g/dL (3.5-5.0); Alkaline Phosphatase 96 U/L (39-117); Anion Gap 13 (12-20); Aspartate Amino Transferase 22 U/L (5-37); Bilirubin Total 0.3 mg/dL (0.0-1.0); Blood Urea Nitrogen 16 mg/dL (9-16); Calcium 9.7 mg/dL (8.4-10.2); Carbon Dioxide 24 mmol/L (22-29); Chloride 108 mmol/L (96-108); Cholesterol 164 mg/dL (<200); Estimated Glomerular Filt Rate > 60; Glucose Fasting 117 mg/dL (60-99); HDL Cholesterol 32 mg/dL (>40); LDL Cholesterol Calculated 97 mg/dL (<100); Sodium 141 mmol/L (135-145); Total Protein 6.9 g/dL (6.5-8.0); Triglycerides 175 mg/dL (<150)
[2023-09-09 10:18] LABS: Prostate Specific Antigen Scr 1.45 ng/mL (<0.05-4.0)
[2023-09-09 10:25] LABS: TSH reflex Free T4 1.55 uIU/mL (0.32-4.0); Vitamin D 25-OH Total 42.6 ng/mL (>30)
== END 2023-09-09 08:43 | disposition home or self-care (01) ==
LOC: HO.LAB 08:42
PROVIDERS: PCP Internal Medicine; Visit Provider Internal Medicine
DX: Z00.00 Encounter for general adult medical examination without abnormal findings (principal); Z12.5 Encounter for screening for malignant neoplasm of prostate; E55.9 Vitamin D deficiency, unspecified; E78.00 Pure hypercholesterolemia, unspecified; K29.70 Gastritis, unspecified, without bleeding
CPT/HCPCS: 36415; 80053; 80061; 81001; 82306; 84153; 84443; 85025

== ENCOUNTER 2023-09-17 16:19 | Outpatient (AMB) | payer OTHER, SELFPAY ==
[2023-09-17 16:20] VITALS: BP 120/72; PULSE 108; O2SAT 97; BMI 26.7
--- NOTE | 2023-09-17 16:20 | A.OFFPC_ITS ---
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 In[employer] Required: No Accompanied by: Self / Same As Patient Allergies rosuvastatin [Crestor] Adverse Reaction (Intermediate, Verified 09/17/23 16:56) myalgias Medication List - Last Reconciled 09/17/23 by Harinder Fuller MD aspirin 81 mg PO DAILY cholecalciferol (vitamin D3) 50 mcg PO DAILY 90 days ezetimibe 10 mg PO DAILY 90 days kxwdtidveeio-invz-qlzeh acid 18-400 mg-mcg (Centrum) 1 tab PO DAILY omeprazole 40 mg PO DAILY 90 days pravastatin 40 mg PO DAILY 90 days Tobacco use date assessed: 09/17/23 Dental Screening Dental Screen Date: 09/17/23 Did you have a dental visit in the last 12 months?: Yes Did you have a dental problem in the last 6 months where you did not have access to dental care?: No Was dental information given to patient?: Patient has dentist HPI annual exam HPI Details Patient comes in today for his annual physical examination States that he feels okay but is concerned about his right knee lately Notes that he would be walking normally when his right knee would suddenly buckle and give out on him States that his right knee does not hurt at all when this occurs and it has caused him to lose his balance and almost fall over a few times He does note that he has some limitation of movement of his right knee even from before in that he has limited lateral mobility of his knee He does not recall any trauma or injury to his right knee in the past and has not noticed any swelling of his knee recently or in the past He denies any headaches or dizziness Denies any chest pains, no SOB No nausea/vomiting, no abdominal pain No change in bowel habits noted Denies any acute urinary symptoms Had his follow up labs done last week - to discuss his results He is up-to-date with his colon cancer screening - is due for repeat colonoscopy in 2025 (5 yr recall due to tubular adenoma) FOR[facility]LY [facility], [facility] Medical History (Updated 09/17/23 @ 17:07 by Harinder Fuller MD) Diabetes mellitus Vitamin D deficiency Gastritis Tubular adenoma Pain in both feet Insomnia Overweight (BMI 25.0-29.9) Smoker Elevated blood pressure reading Allergic rhinitis Pure hypercholesterolemia Surgical History History of colonoscopy (~10/24/20) Hx of wisdom tooth extraction History of inguinal hernia repair History of vasectomy Family History Father No problems noted. Mother No problems noted. Paternal Uncle History of stomach cancer Maternal Aunt Hx of breast cancer Son No problems noted. 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 1. Little interest or pleasure in doing things: not at all 2. Feeling down, depressed, or hopeless: not at all 3. Trouble falling or staying asleep, or sleeping too much: not at all 4. Feeling tired or having little energy: not at all 5. Poor appetite or overeating: not at all 6. Feeling bad about yourself - or that you are a failure or have let yourself or your family down: not at all 7. Trouble concentrating on things, such as reading the newspaper or watching television: not at all 8. Moving or speaking so slowly that other people could have noticed. Or the opposite - being so fidgety or restless that you have been moving around a lot more than usual: not at all 9. Thoughts that you would be better off or of hurting yourself in some way: not at all Total score: 0 Depression Screening Interpretation: Negative Depression Screening Done: Yes 45578 - PHQ-9 Billing: Yes Source: Developed by Drs. Andrés Narayan, Caitlyn Espino, Kalyan Savage and colleagues, with an educational laz from [employer]. Thrive Questionnaire Date Thrive assessed: 09/17/23 I am a: Patient What is your living situation today?: I have a steady place to live Within the past 12 months, did the food you bought not last and you didn't have the money to get more?: Never true Within the past 12 months, did you worry whether your food would run out before you got money to buy more?: Never true Do you have trouble paying for medicines?: No Do you have trouble getting transportation to medical appointments?: No Do you have trouble paying your heating and electricity bill?: No Do you have trouble taking care of your child, family member or friend?: No Do you have trouble with day-to-day activities such as bathing, preparing meals, shopping, managing finances, etc.?: No Are you currently unemployed and looking for a job?: No Are you interested in more education?: No Please select the resources that you would like help with: None Currently or been in a relationship where the following occur: no concerns reported THRIVE Score: 0 AUDIT C Alcohol Use Questionnaire (AUDIT-C) 1. How often do you have a drink containing alcohol?: 2-4 times a month 2. How many drinks containing alcohol do you have on a typical day when you are drinking?: 3 or 4 3. How often do you have six or more drinks on one occasion?: Never Total Score: 3 Score Reviewed/Action Taken: Yes EMEKA-7 AMB Questionnaire EMEKA-7 Date EMEKA - 7 assessed: 09/17/23 Feeling nervous, anxious, or on edge: 0 = Not at all Not being able to stop or control worryin = Not at all Worrying too much about different things: 0 = Not at all Trouble relaxin = Not at all Being so restless that it is hard to sit still: 0 = Not at all Becoming easily annoyed or irritable: 0 = Not at all Feeling afraid as if something awful might happen: 0 = Not at all Total EMEKA-7 score (0-4 normal; 5-9 mild; 10-14 moderate; 15-21 severe): 0 Source: Developed by Drs. Andrés Narayan, Caitlyn Espino, Kalyan Savage and colleagues, with an educational laz from [employer]. Review of Systems Const Denies chills, Denies fatigue, Denies fever(s), Denies headache(s), Denies malaise and Denies weakness Eyes Denies blurry vision, Denies change in vision, Denies irritation and Denies itchy eyes ENT Denies dysphagia, Denies dizziness, Denies otalgia, Denies headache(s), Denies nasal congestion, Denies neck pain, Denies odynophagia and Denies sore throat Card Denies chest pain, Denies rapid heart rate, Denies irregular heart rhythm, Denies palpitations and Denies dyspnea Resp Denies chest congestion, Denies cough, Denies dyspnea and Denies wheezing GI Denies abdominal pain, Denies bloating, Denies constipation, Denies dysphagia, Denies heartburn, Denies diarrhea, Denies nausea, Denies odynophagia and Denies vomiting Denies hematuria, Denies difficulty urinating, Denies dysuria, Denies urinary frequency and Denies urinary urgency Musc Denies back pain, Denies arthralgias (but right knee gives out on him suddenly at times - see HPI), Denies joint swelling, Denies muscle weakness and Denies neck pain Skin/Breast Denies change in pigmentation, Denies lesions, Denies rash and Denies unusual bruising Neuro Denies dizziness, Denies headache(s), Denies paresthesias and Denies weakness Endo Denies fatigue and Denies palpitations Aller/Immun Denies itchy eyes and Denies wheezing Physical exam (Primary Care) Vital Signs: Last Vital Signs Pulse 108 H 09/17/23 16:20 BP 120/72 09/17/23 16:20 Pulse Ox 97 09/17/23 16:20 Oxygen Delivery Method Room Air 09/17/23 16:20 BMI result Body Mass Index 26.7 Tobacco/Smoking Status: Tobacco use Status Tobacco use date assessed 09/17/23 09/17/23 16:23 Patient Tobacco Use Status Current everyday Tobacco 09/17/23 16:23 e-Cigarette/Vaping Use Never Used 09/17/23 16:23 PHQ-9: PHQ-9 Score PHQ-9: Total score 0 09/17/23 17:05 Depression Screening Interpretation: Negative Thrive Assessment: Date of Thrive Assessment Date Thrive assessed 09/17/23 09/17/23 16:23 Currently or been in a relationship where the following occur: no concerns reported Const General: no acute distress, alert and awake Orientation/consciousness: patient oriented x3 HENMT Head: Yes normocephalic and Yes atraumatic Ears: external ears normal, TM's normal bilaterally and EAC's normal General nose exam: No nasal discharge present Face and sinus: Yes normal facial exam and Yes sinuses nontender Teeth and gingiva: dentition normal Throat: Yes posterior oropharynx normal and Yes tonsils normal (no TP congestion) Eyes Eyelids: Yes eyelids normal Conjunctivae: conjunctivae normal Pupils: Equal, round and reactive pupils present EOM: EOMs intact bilaterally Neck Neck: Yes no lymphadenopathy and Yes supple Thyroid: Thyroid normal Resp Auscultation: clear to auscultation bilaterally, no rales and no wheezes Cardio Rate: regular rate Rhythm: regular rhythm Heart sounds: no murmurs GI Palpation (GI): Soft to palpation, nontender and No hepatosplenomegaly present Auscultation: normal bowel sounds General: Yes no CVA tenderness Back/Spine/Pelvis Back: no CVA tenderness Thoracic/Lumbar Spine: thoracic and lumbar spine normal to inspection Skin Lesions: no lesions Rashes: no rashes Neuro General: patient oriented x3, moves all extremities, no focal motor deficits and CN's II-XI intact bilaterally Cranial nerves: Yes Equal, round and reactive pupils present Cognition (Neuro): normal cognition Gait exam (Neuro): Normal gait present Extrem General: Yes no clubbing, cyanosis or edema Right lower extremity: knee Details: normal to inspection; no tenderness and no swelling Results AMB Hemoglobin A1c AMB Hemoglobin A1c 6.6 % Last Edit by Juancarlos Lin on 09/17/23 17:06 Results Reviewed Results Reviewed: Laboratory Last Values Hgb A1c (Clinic) 6.6 % (4.0-6.0) H 09/17/23 17:05 Laboratory Tests 09/09/23 09/09/23 08:57 09:00 WBC 8.4 Hgb 14.8 Hct 45.9 Plt Count 197 Sodium 141 Potassium 4.0 Creatinine 0.88 Estimated GFR > 60 Fasting Glucose 117 H Calcium 9.7 AST 22 ALT 24 Triglycerides 175 H Cholesterol 164 LDL Cholesterol, Calc 97 HDL Cholesterol 32 L PSA Screen 1.45 25-OH Vitamin D Total 42.6 TSH 1.55 Ur Specific [place] 1.025 Urine Protein Negative Urine Glucose (UA) Negative Urine Blood Small (1+) H Urine Nitrite Negative Ur Leukocyte Esterase Negative Assessment and Plan Assessment & Plan (1) Annual physical exam: Code(s): Z00.00 - Encounter for general adult medical examination without abnormal findings Plan: Results of his labs done last week reviewed and discussed with patient He is up-to-date with his colonoscopy - had it done in 2020 and recommended repeat in 5 years (2025) (2) Diabetes mellitus: Code(s): E11.9 - Type 2 diabetes mellitus without complications Qualifiers: Diabetes mellitus complication status: without complication Diabetes mellitus prison insulin use: without prison use Diabetes mellitus type: type 2 Qualified Code(s): E11.9 - Type 2 diabetes mellitus without complications Plan: His FBS is elevated at 117 mg/dl on his labs done last week; in-office HgbA1c done today is at 6.6% Patient is cautioned that a HgbA1c of 6.6% indicates that he now has diabetes Have recommended that he start taking some Rx to help control his blood sugar and to slow down his progression but he declines States that he would like to try working on his diet for the next few months (admits that he was eating a crappy diet over the past few months, especially during the holidays) and that if his numbers do not improve significantly at his next visit, then he will agree to start taking diabetes medications Discussed diabetic diet States that his mother has diabetes and he will also reach out to her for help with this Will recheck his labs in 4 months for follow up (3) Pure hypercholesterolemia: Code(s): E78.00 - Pure hypercholesterolemia, unspecified Plan: Results of his labs done last week reviewed and discussed with patient - advised that his serum triglyceride level is elevated and this is likely related to his poor glycemic control lately; his total and LDL cholesterol remain at or close to goal Reinforced low-cholesterol diet Continue Pravastatin 40 mg QD and Ezetimibe 10 mg QD Will recheck his labs and fasting lipids in 4 months for follow-up (4) Elevated blood pressure reading: Code(s): R03.0 - Elevated blood-pressure reading, without diagnosis of hypertension Plan: His BP again appears much better/normal today Reinforced low sodium diet Patient is reminded to check and monitor his blood pressure regularly (5) Gastritis: Comment: S/P 14-days Tx with Bismuth, Flagyl and Doxycycline for H. pylori Code(s): K29.70 - Gastritis, unspecified, without bleeding Qualifiers: Gastritis type: unspecified gastritis Chronicity: unspecified Gastritis bleeding: without bleeding Qualified Code(s): K29.70 - Gastritis, unspecified, without bleeding Plan: S/P Tx for H. pylori x 14 days in 2021 - states that his GI symptoms have improved a lot with treatment Dietary restrictions reinforced Continue Omeprazole 40 mg QD Follow up with GI as scheduled (6) Recurrent right knee instability: Code(s): M23.51 - Chronic instability of knee, right knee Plan: Will send him for x-rays of the right knee for further evaluation (7) Allergic rhinitis: Code(s): J30.9 - Allergic rhinitis, unspecified Qualifiers: Allergic rhinitis trigger: other Allergic rhinitis seasonality: unspecified Qualified Code(s): J30.89 - Other allergic rhinitis Plan: Continue Loratadine 10 mg QD PRN (8) Vitamin D deficiency: Code(s): E55.9 - Vitamin D deficiency, unspecified Plan: Continue Vitamin D3 2000 units QD (9) Insomnia: Code(s): G47.00 - Insomnia, unspecified Qualifiers: Insomnia type: primary Qualified Code(s): F51.01 - Primary insomnia Plan: Sleep hygiene reinforced (10) Smoker: Code(s): F17.200 - Nicotine dependence, unspecified, uncomplicated Plan: Counseled again on smoking cessation (11) Overweight (BMI 25.0-29.9): Code(s): E66.3 - Overweight Plan: Reinforced diet/exercise as tolerated/lose weight Plan Follow up in 4 months Orders: Orders Complete Blood Count Auto Diff 4 Months D64.9 - Anemia, unspecified Hemoglobin A1c 4 Months E11.9 - Type 2 diabetes mellitus without complications Microalbumin, Random (w Creat) 4 Months E11.9 - Type 2 diabetes mellitus without complications TSH reflex Free T4 4 Months E78.00 - Pure hypercholesterolemia, unspecified Vitamin D 25-OH Total 4 Months E55.9 - Vitamin D deficiency, unspecified XR knee RT 4V Today M23.51 - Chronic instability of knee, right knee AMB Hemoglobin A1c Today Z13.9 - Encounter for screening, unspecified Comprehensive [place]. Panel Fast 4 Months E78.00 - Pure hypercholesterolemia, unspecified Lipid Panel 4 Months E78.00 - Pure hypercholesterolemia, unspecified UA CC w/rflx Micro + Cult 4 Months R30.0 - Dysuria Coding Level of Care Code Est Pt Prev Care 40-64y(04236) Diagnoses Annual physical exam Z00.00 Type 2 diabetes mellitus without complication, without long-term current use of insulin E11.9 Diabetes mellitus complication status: without complication Diabetes mellitus prison insulin use: without bed bug exterminator use Diabetes mellitus type: type 2 Pure hypercholesterolemia E78.00 Elevated blood pressure reading R03.0 Gastritis without bleeding, unspecified chronicity, unspecified gastritis type K29.70 Gastritis type: unspecified gastritis Chronicity: unspecified Gastritis bleeding: without bleeding Recurrent right knee instability M23.51 Allergic rhinitis due to other allergic trigger, unspecified seasonality J30.89 Allergic rhinitis trigger: other Allergic rhinitis seasonality: unspecified Vitamin D deficiency E55.9 Primary insomnia F51.01 Insomnia type: primary Smoker F17.200 Overweight (BMI 25.0-29.9) E66.3
== END 2023-09-17 17:09 | disposition home or self-care (01) ==
PROVIDERS: PCP Internal Medicine; Visit Provider Internal Medicine
DX: Z00.00 Encounter for general adult medical examination without abnormal findings (principal); E11.9 Type 2 diabetes mellitus without complications; E78.00 Pure hypercholesterolemia, unspecified; R03.0 Elevated blood-pressure reading, without diagnosis of hypertension; K29.70 Gastritis, unspecified, without bleeding; M23.51 Chronic instability of knee, right knee; J30.89 Other allergic rhinitis; E55.9 Vitamin D deficiency, unspecified; F51.01 Primary insomnia; F17.200 Nicotine dependence, unspecified, uncomplicated; E66.3 Overweight
CPT/HCPCS: 83036; 99396

== ENCOUNTER 2023-09-26 11:37 | Outpatient (REF) | payer OTHER, SELFPAY ==
--- NOTE | ~2023-09-26 | XR_ITS ---
EXAMINATION: XR KNEE, RIGHT CLINICAL INFORMATION: Chronic instability of the knee. COMPARISON: None available. TECHNIQUE: Four views of the right knee. FINDINGS: No significant joint effusion. Small tricompartmental osteophytes. Sclerosis and irregularity along the posterior aspect of the patella. XR/XR knee RT 4V IMPRESSION: Degenerative changes with irregularity, most notable along the posterior aspect of the patella.
== END 2023-09-26 11:38 | disposition home or self-care (01) ==
LOC: HO.XRAY 11:37
PROVIDERS: PCP Internal Medicine; Visit Provider Internal Medicine
DX: M23.51 Chronic instability of knee, right knee (principal)
CPT/HCPCS: 73564

== ENCOUNTER 2024-01-20 09:58 | Outpatient (REF) | payer OTHER, SELFPAY ==
[2024-01-20 10:09] LABS: MANUAL DIFF FLAG NO
[2024-01-20 11:08] LABS: Basophils Absolute Auto 0.1 X10*3/uL (0.0-0.2); Basophils Percent Auto 0.7 % (0-2); Eosinophils Absolute Auto 0.3 X10*3/uL (0.0-0.4); Eosinophils Percent Auto 3.5 % (0-4); Hematocrit 45.4 % (42.0-52.0); Hemoglobin 14.8 g/dl (14.0-18.0); Imm Gran Abs Auto 0.03 X10*3/uL (0.00-0.03); Imm Gran Pct Auto 0.3 % (0.0-0.4); Lymphocytes Absolute Auto 2.8 X10*3/uL (1.2-4.9); Mean Corpuscular HGB Conc 32.6 g/dl (31.0-36.0); Mean Corpuscular Hemoglobin 26.1 pg (27.0-33.0); Mean Corpuscular Volume 80.1 fL (80.0-98.0); Mean Platelet Volume 11.3 fL (9.4-12.4); Monocytes Absolute Auto 0.7 X10*3/uL (0.1-1.2); Monocytes Percent Auto 7.3 % (2-11); Neutrophils Absolute Auto 5.5 x10*3/uL (2.0-8.3); Neutrophils Percent Auto 58.2 % (45-73); Platelet Count 209 X10*3/uL (160-400); Red Blood Count 5.67 X10*6/uL (4.60-5.80); Red Cell Distribution Width 14.4 % (11.0-16.0); White Blood Count 9.5 X10*3/uL (4.8-10.8)
[2024-01-20 11:08] LABS: Appearance Urine Clear; Color Urine Yellow; Glucose Urine UA Negative (Negative); Leukocyte Esterase Urine Negative (Negative); Nitrite Urine Negative (Negative); PH 5.5 (5.0-9.0); Urine Blood Negative (Negative); Urine Ketones Negative (Negative); Urine Protein Negative (Neg-Trace)
[2024-01-20 11:18] LABS: Estimated Average Glucose 131 mg/dL; Hemoglobin A1c % 6.2 % (<6.0)
[2024-01-20 12:24] LABS: Alanine Aminotransferase 25 U/L (0-40); Albumin Level 4.1 g/dL (3.5-5.0); Alkaline Phosphatase 95 U/L (39-117); Anion Gap 10 (12-20); Aspartate Amino Transferase 19 U/L (5-37); Bilirubin Total 0.4 mg/dL (0.0-1.0); Blood Urea Nitrogen 17 mg/dL (9-16); Calcium 9.5 mg/dL (8.4-10.2); Carbon Dioxide 27 mmol/L (22-29); Chloride 108 mmol/L (96-108); Cholesterol 164 mg/dL (<200); Estimated Glomerular Filt Rate > 60; Glucose Fasting 100 mg/dL (60-99); HDL Cholesterol 30 mg/dL (>40); LDL Cholesterol Calculated 90 mg/dL (<100); Potassium 3.9 mmol/L (3.3-5.1); Sodium 141 mmol/L (135-145); TSH reflex Free T4 1.66 uIU/mL (0.32-4.0); Total Protein 6.8 g/dL (6.5-8.0); Triglycerides 221 mg/dL (<150); Vitamin D 25-OH Total 45.2 ng/mL (>30)
[2024-01-20 12:29] LABS: Creatinine Urine 135.86 mg/dL; Microalbum/Creatinine Ratio Ur 5.1 ug/mg cr (<30)
== END 2024-01-20 09:59 | disposition home or self-care (01) ==
LOC: HO.LAB 09:58
PROVIDERS: PCP Internal Medicine; Visit Provider Internal Medicine
DX: E55.9 Vitamin D deficiency, unspecified (principal); E11.9 Type 2 diabetes mellitus without complications; E78.00 Pure hypercholesterolemia, unspecified; D64.9 Anemia, unspecified
CPT/HCPCS: 36415; 80053; 80061; 81003; 82043; 82306; 82570; 83036; 84443; 85025

== ENCOUNTER 2024-01-21 16:28 | Outpatient (AMB) | payer OTHER, SELFPAY ==
[2024-01-21 16:35] VITALS: BP 136/70; PULSE 84; O2SAT 98; BMI 26.0
--- NOTE | 2024-01-21 16:35 | MHC.PC.OV ---
Vital Signs 01/21/24 16:35 Height 6 ft Weight 192 lb BMI 26.0 BP 136/70 Blood Pressure Location Lt brachial Position Sitting Pulse 84 Pulse Source Pulse Oximeter Pulse Oximetry (%) 98 Oxygen Delivery Method Room Air Intake Visit Reasons: DM, hyperlipidemia Unclaimed Property Manager Required: No Allergies rosuvastatin [Crestor] Adverse Reaction (Intermediate, Verified 01/21/24 16:55) myalgias Medication List - Last Reconciled 01/21/24 by Harinder Fuller MD aspirin 81 mg PO DAILY cholecalciferol (vitamin D3) 50 mcg PO DAILY 90 days ezetimibe 10 mg PO DAILY 90 days mbrsffzlwwzk-iibs-vrphz acid 18-400 mg-mcg (Centrum) 1 tab PO DAILY omeprazole 40 mg PO DAILY 90 days pravastatin 40 mg PO DAILY 90 days Tobacco use date assessed: 01/21/24 Dental Screening Dental Screen Date: 09/17/23 HPI DM, hyperlipidemia HPI Details Patient comes in today for his follow up visit States that he feels okay He denies any headaches or dizziness Denies any chest pains, no SOB No nausea/vomiting, no abdominal pain No change in bowel habits noted States that his right knee still bothers him often but it has not been giving out on him as much as it used to Would like to know if his x-rays showed anything unusual States that he needs all of his Rx refilled Had his follow up labs done yesterday - to discuss his results [facility] Medical History Diabetes mellitus Vitamin D deficiency Gastritis Tubular adenoma Pain in both feet Insomnia Overweight (BMI 25.0-29.9) Smoker Elevated blood pressure reading Allergic rhinitis Pure hypercholesterolemia Surgical History History of colonoscopy (~10/24/20) Hx of wisdom tooth extraction History of inguinal hernia repair History of vasectomy Family History Father No problems noted. Mother No problems noted. Paternal Uncle History of stomach cancer Maternal Aunt Hx of breast cancer Son No problems noted. Social History Household Members: Spouse and Children Housing: House Alcohol intake: current Alcohol intake frequency: holidays/special occasions only Patient Tobacco Use Status: Current everyday Tobacco user Cigarettes Per Day: 10 Years Smoked: 30 e-Cigarette/Vaping Use: Never Used Second Hand Smoke Exposure: Yes service: No Current occupational status: employed Current occupation: [employer] [place] Cognitive needs: No Hearing needs: No Vision needs: No Questionnaire Thrive Questionnaire Date Thrive assessed: 09/17/23 I am a: Patient What is your living situation today?: I have a steady place to live Within the past 12 months, did the food you bought not last and you didn't have the money to get more?: Never true Within the past 12 months, did you worry whether your food would run out before you got money to buy more?: Never true Do you have trouble paying for medicines?: No Do you have trouble getting transportation to medical appointments?: No Do you have trouble paying your heating and electricity bill?: No Do you have trouble taking care of your child, family member or friend?: No Do you have trouble with day-to-day activities such as bathing, preparing meals, shopping, managing finances, etc.?: No Are you currently unemployed and looking for a job?: No Are you interested in more education?: No Please select the resources that you would like help with: None Currently or been in a relationship where the following occur: no concerns reported THRIVE Score: 0 AUDIT C Alcohol Use Questionnaire (AUDIT-C) 1. How often do you have a drink containing alcohol?: 2-4 times a month 2. How many drinks containing alcohol do you have on a typical day when you are drinking?: 3 or 4 3. How often do you have six or more drinks on one occasion?: Never Total Score: 3 Score Reviewed/Action Taken: Yes EMEKA-7 AMB Questionnaire EMEKA-7 Date EMEKA - 7 assessed: 09/17/23 Source: Developed by Drs. Andrés Narayan, Caitlyn Espino, Kalyan Savage and colleagues, with an educational laz from [employer]. Review of Systems Const Denies chills, Denies fatigue, Denies fever(s) and Denies headache(s) ENT Denies dysphagia, Denies dizziness, Denies otalgia, Denies headache(s), Denies neck pain, Denies odynophagia and Denies sore throat Card Denies chest pain, Denies irregular heart rhythm, Denies palpitations and Denies dyspnea Resp Denies cough, Denies dyspnea and Denies wheezing GI Denies abdominal pain, Denies constipation, Denies dysphagia, Denies heartburn, Denies diarrhea, Denies nausea, Denies odynophagia and Denies vomiting Denies difficulty urinating, Denies dysuria, Denies nocturia and Denies urinary frequency Musc Denies back pain, Denies arthralgias (but right knee gives out on him at times although this has improved) and Denies neck pain Skin/Breast Denies rash Neuro Denies dizziness, Denies headache(s) and Denies paresthesias Endo Denies fatigue and Denies palpitations Aller/Immun Denies wheezing Physical exam (Primary Care) Vital Signs: Last Vital Signs Pulse 84 01/21/24 16:35 BP 136/70 01/21/24 16:35 Pulse Ox 98 01/21/24 16:35 Oxygen Delivery Method Room Air 01/21/24 16:35 BMI result Body Mass Index 26.0 Tobacco/Smoking Status: Tobacco use Status Tobacco use date assessed 01/21/24 01/21/24 16:36 Patient Tobacco Use Status Current everyday Tobacco 01/21/24 16:36 e-Cigarette/Vaping Use Never Used 01/21/24 16:36 Thrive Assessment: Date of Thrive Assessment Date Thrive assessed 09/17/23 01/21/24 16:36 Currently or been in a relationship where the following occur: no concerns reported Const General: no acute distress and alert HENMT Ears: TM's normal bilaterally and EAC's normal Throat: Yes posterior oropharynx normal and Yes tonsils normal (no TP congestion) Neck Neck: Yes no lymphadenopathy and Yes supple Thyroid: Thyroid normal Resp Auscultation: clear to auscultation bilaterally, no rales and no wheezes Cardio Rate: regular rate Rhythm: regular rhythm Heart sounds: no murmurs GI Palpation (GI): Soft to palpation and nontender Auscultation: normal bowel sounds General: Yes no CVA tenderness Back/Spine/Pelvis Back: no CVA tenderness Thoracic/Lumbar Spine: thoracic and lumbar spine normal to inspection Skin Rashes: no rashes Extrem General: Yes no clubbing, cyanosis or edema Right lower extremity: knee Details: normal to inspection; no tenderness and no swelling Results Reviewed Results Reviewed: Laboratory Tests 01/20/24 01/20/24 10:05 10:07 WBC 9.5 Hgb 14.8 Hct 45.4 Plt Count 209 Sodium 141 Potassium 3.9 Creatinine 0.81 Estimated GFR > 60 Fasting Glucose 100 H Hemoglobin A1c % 6.2 H Calcium 9.5 AST 19 ALT 25 Triglycerides 221 H Cholesterol 164 LDL Cholesterol, Calc 90 HDL Cholesterol 30 L 25-OH Vitamin D Total 45.2 TSH 1.66 Urine pH 5.5 Ur Specific [place] 1.020 Urine Protein Negative Urine Glucose (UA) Negative Urine Blood Negative Urine Nitrite Negative Ur Leukocyte Esterase Negative Microalb/Creat Ratio 5.1 Assessment and Plan Assessment & Plan (1) Pure hypercholesterolemia: Code(s): E78.00 - Pure hypercholesterolemia, unspecified Plan: Results of his labs done yesterday reviewed and discussed with patient Reinforced low cholesterol diet Continue Pravastatin 40 mg QD and Ezetimibe 10 mg QD Will recheck his labs and fasting lipids in 4 months for follow-up (2) Diabetes mellitus: Code(s): E11.9 - Type 2 diabetes mellitus without complications Qualifiers: Diabetes mellitus type: type 2 Diabetes mellitus mailroom personnel insulin use: without mailroom personnel use Diabetes mellitus complication status: without complication Qualified Code(s): E11.9 - Type 2 diabetes mellitus without complications Plan: His HgbA1c was at 6.2% on his labs done yesterday (in-office HgbA1c was at 6.6% a few months ago) - goal is ideally <6.5% We have previously recommended that he start taking some Rx to help control his blood sugar and to slow down the progression of his diabetes but he declined and wanted to work on diet modification for now and it appears that he has been able to do so Reinforced diabetic diet Will recheck his HgbA1c and FBS in 4 months for follow up (3) Elevated blood pressure reading: Code(s): R03.0 - Elevated blood-pressure reading, without diagnosis of hypertension Plan: His BP today appears acceptable but should ideally be at 120/80 mm or less Reinforced low sodium diet Patient is reminded to check and monitor his blood pressure regularly (4) Gastritis: Comment: S/P 14-days Tx with Bismuth, Flagyl and Doxycycline for H. pylori Code(s): K29.70 - Gastritis, unspecified, without bleeding Qualifiers: Gastritis type: unspecified gastritis Chronicity: unspecified Gastritis bleeding: without bleeding Qualified Code(s): K29.70 - Gastritis, unspecified, without bleeding Plan: S/P Tx for H. pylori x 14 days in 2021 - states that his GI symptoms have improved a lot with treatment Dietary restrictions reinforced Continue Omeprazole 40 mg QD Follow up with GI as scheduled (5) Recurrent right knee instability: Code(s): M23.51 - Chronic instability of knee, right knee Plan: Advised that his right knee x-rays done a few months ago revealed (+) degenerative changes with irregularity, most notable along the posterior aspect of the patella Patient states that his right knee has been feeling better lately Have advised him on some knee exercises that he can do regularly on his own to help strengthen the muscles that support his knee, which should result in less knee pain and injury (6) Allergic rhinitis: Code(s): J30.9 - Allergic rhinitis, unspecified Qualifiers: Allergic rhinitis trigger: other Allergic rhinitis seasonality: unspecified Qualified Code(s): J30.89 - Other allergic rhinitis Plan: Continue Loratadine 10 mg QD PRN (7) Vitamin D deficiency: Code(s): E55.9 - Vitamin D deficiency, unspecified Plan: Continue Vitamin D3 2000 units QD (8) Insomnia: Code(s): G47.00 - Insomnia, unspecified Qualifiers: Insomnia type: primary Qualified Code(s): F51.01 - Primary insomnia Plan: Sleep hygiene reinforced (9) Smoker: Code(s): F17.200 - Nicotine dependence, unspecified, uncomplicated Plan: Counseled again on smoking cessation (10) Overweight (BMI 25.0-29.9): Code(s): E66.3 - Overweight Plan: Reinforced diet/exercise as tolerated/lose weight Plan Follow up in 4 months Orders: Orders Lipid Panel 4 Months E78.00 - Pure hypercholesterolemia, unspecified TSH reflex Free T4 4 Months E78.00 - Pure hypercholesterolemia, unspecified Vitamin D 25-OH Total 4 Months E55.9 - Vitamin D deficiency, unspecified Complete Blood Count Auto Diff 4 Months D64.9 - Anemia, unspecified Comprehensive [place]. Panel Fast 4 Months E78.00 - Pure hypercholesterolemia, unspecified Hemoglobin A1c 4 Months E11.9 - Type 2 diabetes mellitus without complications Microalbumin, Random (w Creat) 4 Months E11.9 - Type 2 diabetes mellitus without complications UA CC w/rflx Micro + Cult 4 Months R30.0 - Dysuria Medications: Refilled cholecalciferol (vitamin D3) 50 mcg PO DAILY 90 days 90 caps 3RF E55.9 - Vitamin D deficiency, unspecified pravastatin 40 mg PO DAILY 90 days 90 tabs 3RF omeprazole 40 mg PO DAILY 90 days 90 caps 3RF ezetimibe 10 mg PO DAILY 90 days 90 tabs 3RF Coding Level of Care Code Est Pt Level 4 (74991) Complex EM visit Add On G2211 Diagnoses Pure hypercholesterolemia E78.00 Type 2 diabetes mellitus without complication, without long-term current use of insulin E11.9 Diabetes mellitus type: type 2 Diabetes mellitus mailroom personnel insulin use: without mailroom personnel use Diabetes mellitus complication status: without complication Elevated blood pressure reading R03.0 Gastritis without bleeding, unspecified chronicity, unspecified gastritis type K29.70 Gastritis type: unspecified gastritis Chronicity: unspecified Gastritis bleeding: without bleeding Recurrent right knee instability M23.51 Allergic rhinitis due to other allergic trigger, unspecified seasonality J30.89 Allergic rhinitis trigger: other Allergic rhinitis seasonality: unspecified Vitamin D deficiency E55.9 Primary insomnia F51.01 Insomnia type: primary Smoker F17.200 Overweight (BMI 25.0-29.9) E66.3
== END 2024-01-21 17:09 | disposition home or self-care (01) ==
PROVIDERS: PCP Internal Medicine; Visit Provider Internal Medicine
DX: E78.00 Pure hypercholesterolemia, unspecified (principal); E11.9 Type 2 diabetes mellitus without complications; R03.0 Elevated blood-pressure reading, without diagnosis of hypertension; K29.70 Gastritis, unspecified, without bleeding; M23.51 Chronic instability of knee, right knee; J30.89 Other allergic rhinitis; E55.9 Vitamin D deficiency, unspecified; F51.01 Primary insomnia; F17.200 Nicotine dependence, unspecified, uncomplicated; E66.3 Overweight
CPT/HCPCS: 99214; G2211

== ENCOUNTER 2024-05-29 09:45 | Outpatient (REF) | payer OTHER, SELFPAY ==
[2024-05-29 10:14] LABS: MANUAL DIFF FLAG NO
[2024-05-29 10:53] LABS: Basophils Percent Auto 0.5 % (0-2); Eosinophils Absolute Auto 0.3 X10*3/uL (0.0-0.4); Hematocrit 46.7 % (42.0-52.0); Hemoglobin 15.2 g/dl (14.0-18.0); Imm Gran Abs Auto 0.01 X10*3/uL (0.00-0.03); Imm Gran Pct Auto 0.1 % (0.0-0.4); Lymphocytes Absolute Auto 2.8 X10*3/uL (1.2-4.9); Lymphocytes Percent Auto 34.2 % (20-40); Mean Corpuscular HGB Conc 32.5 g/dl (31.0-36.0); Mean Corpuscular Hemoglobin 26.5 pg (27.0-33.0); Mean Corpuscular Volume 81.5 fL (80.0-98.0); Mean Platelet Volume 10.6 fL (9.4-12.4); Monocytes Absolute Auto 0.6 X10*3/uL (0.1-1.2); Monocytes Percent Auto 7.2 % (2-11); Neutrophils Absolute Auto 4.5 x10*3/uL (2.0-8.3); Platelet Count 220 X10*3/uL (160-400); Red Blood Count 5.73 X10*6/uL (4.60-5.80); Red Cell Distribution Width 14.6 % (11.0-16.0); White Blood Count 8.2 X10*3/uL (4.8-10.8)
[2024-05-29 11:04] LABS: Estimated Average Glucose 128 mg/dL; Hemoglobin A1C 164.6587 umol/L; Hemoglobin A1c % 6.1 % (<6.0); Total Hemoglobin (HGBA1C) 3861.6911 umol/L
[2024-05-29 11:22] LABS: Appearance Urine Clear; Color Urine Yellow; Glucose Urine UA Negative (Negative); Leukocyte Esterase Urine Negative (Negative); Nitrite Urine Negative (Negative); Urine Blood Negative (Negative); Urine Ketones Negative (Negative); Urine Protein Negative (Neg-Trace)
[2024-05-29 11:57] LABS: Alanine Aminotransferase 21 U/L (0-40); Albumin Level 4.2 g/dL (3.5-5.0); Alkaline Phosphatase 95 U/L (39-117); Anion Gap 10 (12-20); Aspartate Amino Transferase 20 U/L (5-37); Bilirubin Total 0.3 mg/dL (0.0-1.0); Blood Urea Nitrogen 14 mg/dL (9-16); Calcium 9.4 mg/dL (8.4-10.2); Carbon Dioxide 26 mmol/L (22-29); Chloride 109 mmol/L (96-108); Cholesterol 164 mg/dL (<200); Estimated Glomerular Filt Rate > 60; Glucose Fasting 106 mg/dL (60-99); HDL Cholesterol 29 mg/dL (>40); LDL Cholesterol Calculated 95 mg/dL (<100); Sodium 141 mmol/L (135-145); Total Protein 6.7 g/dL (6.5-8.0); Triglycerides 200 mg/dL (<150)
[2024-05-29 11:57] LABS: Creatinine Urine 213.83 mg/dL; Microalbum/Creatinine Ratio Ur 3.7 ug/mg cr (<30)
[2024-05-29 12:14] LABS: TSH reflex Free T4 1.99 uIU/mL (0.32-4.0); Vitamin D 25-OH Total 48.7 ng/mL (>30)
== END 2024-05-29 09:46 | disposition home or self-care (01) ==
LOC: HO.LAB 09:45
PROVIDERS: PCP Internal Medicine; Visit Provider Internal Medicine
DX: E78.00 Pure hypercholesterolemia, unspecified (principal); E55.9 Vitamin D deficiency, unspecified; D64.9 Anemia, unspecified; E11.9 Type 2 diabetes mellitus without complications; R30.0 Dysuria
CPT/HCPCS: 36415; 80053; 80061; 81003; 82043; 82306; 82570; 83036; 84443; 85025

== ENCOUNTER 2024-06-01 16:35 | Outpatient (AMB) | payer OTHER, SELFPAY ==
[2024-06-01 16:48] VITALS: BP 128/60; PULSE 78; O2SAT 96; BMI 25.8
--- NOTE | 2024-06-01 16:48 | A.OFFPC_ITS ---
Vital Signs 06/01/24 16:48 Height 6 ft Weight 190 lb BMI 25.8 BP 128/60 Blood Pressure Location Lt brachial Position Sitting Pulse 78 Pulse Source Pulse Oximeter Pulse Oximetry (%) 96 Oxygen Delivery Method Room Air Intake Visit Reasons: 4mof\u Assistant Producer Required: No Accompanied by: Self / Same As Patient Allergies rosuvastatin [Crestor] Adverse Reaction (Intermediate, Verified 06/01/24 17:09) myalgias Medication List - Last Reconciled 06/01/24 by Harinder Fuller MD aspirin 81 mg PO DAILY cholecalciferol (vitamin D3) 50 mcg PO DAILY 90 days ezetimibe 10 mg PO DAILY 90 days dctoeywskizf-udlu-kcavz acid 18-400 mg-mcg (Centrum) 1 tab PO DAILY omeprazole 40 mg PO DAILY 90 days pravastatin 40 mg PO DAILY 90 days Tobacco use date assessed: 06/01/24 Dental Screening Dental Screen Date: 06/01/24 Did you have a dental visit in the last 12 months?: Yes Did you have a dental problem in the last 6 months where you did not have access to dental care?: No Was dental information given to patient?: Patient has dentist HPI 4mof\u HPI Details Patient comes in today for his follow up visit States that he feels okay He denies any headaches or dizziness Denies any chest pains, no shortness of breath No nausea/vomiting, no abdominal pain No change in bowel habits noted He had his follow-up labs done a few days ago - to discuss his results [facility] Medical History Diabetes mellitus Vitamin D deficiency Gastritis Tubular adenoma Pain in both feet Insomnia Overweight (BMI 25.0-29.9) Smoker Elevated blood pressure reading Allergic rhinitis Pure hypercholesterolemia Surgical History History of colonoscopy (~10/24/20) Hx of wisdom tooth extraction History of inguinal hernia repair History of vasectomy Family History Father No problems noted. Mother No problems noted. Paternal Uncle History of stomach cancer Maternal Aunt Hx of breast cancer Son No problems noted. Social History Household Members: Spouse and Children Housing: House Alcohol intake: current Alcohol intake frequency: holidays/special occasions only Patient Tobacco Use Status: Current everyday Tobacco user Cigarettes Per Day: 10 Years Smoked: 30 e-Cigarette/Vaping Use: Never Used Second Hand Smoke Exposure: Yes service: No Current occupational status: employed Current occupation: [employer] Cognitive needs: No Hearing needs: No Vision needs: No Questionnaire PHQ-9 Over the last 2 weeks, how often have you been bothered by any of the following problems? 1. Little interest or pleasure in doing things: not at all 2. Feeling down, depressed, or hopeless: not at all 3. Trouble falling or staying asleep, or sleeping too much: not at all 4. Feeling tired or having little energy: not at all 5. Poor appetite or overeating: not at all 6. Feeling bad about yourself - or that you are a failure or have let yourself or your family down: not at all 7. Trouble concentrating on things, such as reading the newspaper or watching television: not at all 8. Moving or speaking so slowly that other people could have noticed. Or the opposite - being so fidgety or restless that you have been moving around a lot more than usual: not at all 9. Thoughts that you would be better off or of hurting yourself in some way: not at all Total score: 0 Depression Screening Interpretation: Negative Depression Screening Done: Yes 13248 - PHQ-9 Billing: Yes Source: Developed by Drs. Andrés Narayan, Caitlyn Espino, Kalyan Savage and colleagues, with an educational laz from [employer]. Thrive Questionnaire Date Thrive assessed: 06/01/24 I am a: Patient What is your living situation today?: I have a steady place to live Within the past 12 months, did the food you bought not last and you didn't have the money to get more?: Never true Within the past 12 months, did you worry whether your food would run out before you got money to buy more?: Never true Do you have trouble paying for medicines?: No Do you have trouble getting transportation to medical appointments?: No Do you have trouble paying your heating and electricity bill?: No Do you have trouble taking care of your child, family member or friend?: No Do you have trouble with day-to-day activities such as bathing, preparing meals, shopping, managing finances, etc.?: No Are you currently unemployed and looking for a job?: No Are you interested in more education?: No Please select the resources that you would like help with: None Currently or been in a relationship where the following occur: No concerns reported THRIVE Score: 0 AUDIT C Alcohol Use Questionnaire (AUDIT-C) 1. How often do you have a drink containing alcohol?: 2-4 times a month 2. How many drinks containing alcohol do you have on a typical day when you are drinking?: 3 or 4 3. How often do you have six or more drinks on one occasion?: Never Total Score: 3 Score Reviewed/Action Taken: Yes EMEKA-7 AMB Questionnaire EMEKA-7 Date EMEKA - 7 assessed: 06/01/24 Feeling nervous, anxious, or on edge: 0 = Not at all Not being able to stop or control worryin = Not at all Worrying too much about different things: 0 = Not at all Trouble relaxin = Not at all Being so restless that it is hard to sit still: 0 = Not at all Becoming easily annoyed or irritable: 0 = Not at all Feeling afraid as if something awful might happen: 0 = Not at all Total EMEKA-7 score (0-4 normal; 5-9 mild; 10-14 moderate; 15-21 severe): 0 Source: Developed by Drs. Andrés Narayan, Caitlyn Espino, Kalyan Savage and colleagues, with an educational laz from [employer]. Review of Systems Const Denies chills, Denies fatigue, Denies fever(s) and Denies headache(s) ENT Denies dysphagia, Denies dizziness, Denies otalgia, Denies headache(s), Denies neck pain, Denies odynophagia and Denies sore throat Card Denies chest pain, Denies irregular heart rhythm, Denies palpitations and Denies dyspnea Resp Denies cough, Denies dyspnea and Denies wheezing GI Denies abdominal pain, Denies constipation, Denies dysphagia, Denies heartburn, Denies diarrhea, Denies nausea, Denies odynophagia and Denies vomiting Denies difficulty urinating, Denies dysuria, Denies nocturia and Denies urinary frequency Musc Denies back pain, Denies arthralgias (but right knee gives out on him at times although this has improved) and Denies neck pain Skin/Breast Denies rash Neuro Denies dizziness, Denies headache(s) and Denies paresthesias Endo Denies fatigue and Denies palpitations Aller/Immun Denies wheezing Physical exam (Primary Care) Vital Signs: Last Vital Signs Pulse 78 06/01/24 16:48 BP 128/60 06/01/24 16:48 Pulse Ox 96 06/01/24 16:48 Oxygen Delivery Method Room Air 06/01/24 16:48 BMI result Body Mass Index 25.8 Tobacco/Smoking Status: Tobacco use Status Tobacco use date assessed 06/01/24 06/01/24 16:51 Patient Tobacco Use Status Current everyday Tobacco 06/01/24 16:51 e-Cigarette/Vaping Use Never Used 06/01/24 16:51 PHQ-9: PHQ-9 Score PHQ-9: Total score 0 06/01/24 17:10 Depression Screening Interpretation: Negative Thrive Assessment: Date of Thrive Assessment Date Thrive assessed 06/01/24 06/01/24 16:51 Currently or been in a relationship where the following occur: No concerns reported Const General: no acute distress and alert HENMT Ears: TM's normal bilaterally and EAC's normal Throat: Yes posterior oropharynx normal and Yes tonsils normal (no TP congestion) Neck Neck: Yes no lymphadenopathy and Yes supple Thyroid: Thyroid normal Resp Auscultation: clear to auscultation bilaterally, no rales and no wheezes Cardio Rate: regular rate Rhythm: regular rhythm Heart sounds: no murmurs GI Palpation (GI): Soft to palpation and nontender Auscultation: normal bowel sounds General: Yes no CVA tenderness Back/Spine/Pelvis Back: no CVA tenderness Thoracic/Lumbar Spine: thoracic and lumbar spine normal to inspection Skin Rashes: no rashes Extrem General: Yes no clubbing, cyanosis or edema Right lower extremity: knee Details: normal to inspection; no tenderness and no swelling Results Reviewed Results Reviewed: Laboratory Tests 05/29/24 05/29/24 10:10 10:12 WBC 8.2 Hgb 15.2 Hct 46.7 Plt Count 220 Sodium 141 Potassium 4.0 Creatinine 0.83 Estimated GFR > 60 Fasting Glucose 106 H Hemoglobin A1c % 6.1 H Calcium 9.4 AST 20 ALT 21 Triglycerides 200 H Cholesterol 164 LDL Cholesterol, Calc 95 HDL Cholesterol 29 L 25-OH Vitamin D Total 48.7 TSH 1.99 Urine pH 6.0 Ur Specific [place] 1.020 Urine Protein Negative Urine Glucose (UA) Negative Urine Blood Negative Urine Nitrite Negative Ur Leukocyte Esterase Negative Microalb/Creat Ratio 3.7 Coding Level of Care Code Est Pt Level 4 (87370) Complex EM visit Add On G2211 Diagnoses Pure hypercholesterolemia E78.00 Type 2 diabetes mellitus without complication, without long-term current use of insulin E11.9 Diabetes mellitus type: type 2 Diabetes mellitus usp insulin use: without usp use Diabetes mellitus complication status: without complication Elevated blood pressure reading R03.0 Gastritis without bleeding, unspecified chronicity, unspecified gastritis type K29.70 Gastritis type: unspecified gastritis Chronicity: unspecified Gastritis bleeding: without bleeding Recurrent right knee instability M23.51 Allergic rhinitis due to other allergic trigger, unspecified seasonality J30.89 Allergic rhinitis trigger: other Allergic rhinitis seasonality: unspecified Vitamin D deficiency E55.9 Primary insomnia F51.01 Insomnia type: primary Smoker F17.200 Overweight (BMI 25.0-29.9) E66.3 Assessment & Plan Assessment & Plan (1) Pure hypercholesterolemia: Code(s): E78.00 - Pure hypercholesterolemia, unspecified Category: Medical Plan: Results of his labs done a few days ago reviewed and discussed with patient Reinforced low cholesterol diet Continue Pravastatin 40 mg QD and Ezetimibe 10 mg QD Will recheck his labs and fasting lipids in 4 months for follow-up (2) Diabetes mellitus: Code(s): E11.9 - Type 2 diabetes mellitus without complications Category: Medical Qualifiers: Diabetes mellitus type: type 2 Diabetes mellitus long term care phlebotomist insulin use: without long term care phlebotomist use Diabetes mellitus complication status: without complication Qualified Code(s): E11.9 - Type 2 diabetes mellitus without complications Plan: His HgbA1c was at 6.1% on his labs done a few days ago (HgbA1c was previously at 6.2% a few months ago) - goal is ideally <6.5% We have previously recommended that he start taking some Rx to help control his blood sugar and to slow down the progression of his diabetes but he declined and wanted to continue working on diet modification - it appears that he has been able to do so Reinforced diabetic diet Will recheck his HgbA1c and FBS in 4 months for follow up (3) Elevated blood pressure reading: Code(s): R03.0 - Elevated blood-pressure reading, without diagnosis of hypertension Category: Medical Plan: His BP today again appears acceptable but should ideally be at 120/80 mm or less Reinforced low sodium diet Patient is reminded to continue checking and monitoring his blood pressure regularly (4) Gastritis: Comment: S/P 14-days Tx with Bismuth, Flagyl and Doxycycline for H. pylori Code(s): K29.70 - Gastritis, unspecified, without bleeding Category: Medical Qualifiers: Gastritis type: unspecified gastritis Chronicity: unspecified Gastritis bleeding: without bleeding Qualified Code(s): K29.70 - Gastritis, un specified, without bleeding Plan: S/P Tx for H. pylori x 14 days in 2021 - states that his GI symptoms have improved a lot with treatment Dietary restrictions reinforced Continue Omeprazole 40 mg QD Follow up with GI as scheduled (5) Recurrent right knee instability: Code(s): M23.51 - Chronic instability of knee, right knee Category: Medical Plan: Have advised patient that his right knee x-rays done a few months ago revealed (+) degenerative changes with irregularity, most notable along the posterior aspect of the patella He states that his right knee has been feeling better lately Have advised him to continue with knee exercises regularly to help strengthen the muscles that support his knee, which should result in less knee pain and injury (6) Allergic rhinitis: Code(s): J30.9 - Allergic rhinitis, unspecified Category: Medical Qualifiers: Allergic rhinitis trigger: other Allergic rhinitis seasonality: unspecified Qualified Code(s): J30.89 - Other allergic rhinitis Plan: Continue Loratadine 10 mg QD PRN (7) Vitamin D deficiency: Code(s): E55.9 - Vitamin D deficiency, unspecified Category: Medical Plan: Continue Vitamin D3 2000 units QD (8) Insomnia: Code(s): G47.00 - Insomnia, unspecified Category: Medical Qualifiers: Insomnia type: primary Qualified Code(s): F51.01 - Primary insomnia Plan: Sleep hygiene reinforced (9) Smoker: Code(s): F17.200 - Nicotine dependence, unspecified, uncomplicated Category: Social Hx Plan: Patient is counseled again on smoking cessation (10) Overweight (BMI 25.0-29.9): Code(s): E66.3 - Overweight Category: Medical Plan: Reinforced diet/exercise as tolerated/lose weight Plan Follow up in 4 months Orders: Orders Complete Blood Count Auto Diff 4 Months D64.9 - Anemia, unspecified Comprehensive [place]. Panel Fast 4 Months E78.00 - Pure hypercholesterolemia, unspecified Microalbumin, Random (w Creat) 4 Months E11.9 - Type 2 diabetes mellitus without complications Hemoglobin A1c 4 Months E11.9 - Type 2 diabetes mellitus without complications Lipid Panel 4 Months E78.00 - Pure hypercholesterolemia, unspecified UA CC w/rflx Micro + Cult 4 Months R30.0 - Dysuria Vitamin D 25-OH Total 4 Months E55.9 - Vitamin D deficiency, unspecified
== END 2024-06-01 17:21 | disposition home or self-care (01) ==
PROVIDERS: PCP Internal Medicine; Visit Provider Internal Medicine
DX: E78.00 Pure hypercholesterolemia, unspecified (principal); E11.9 Type 2 diabetes mellitus without complications; R03.0 Elevated blood-pressure reading, without diagnosis of hypertension; K29.70 Gastritis, unspecified, without bleeding; M23.51 Chronic instability of knee, right knee; J30.89 Other allergic rhinitis; E55.9 Vitamin D deficiency, unspecified; F51.01 Primary insomnia; F17.200 Nicotine dependence, unspecified, uncomplicated; E66.3 Overweight

== ENCOUNTER → 2024-06-01 16:35 | Outpatient (BNVA) | payer OTHER, SELFPAY | PROVIDERS: PCP Internal Medicine; Visit Provider Internal Medicine | DX: E78.00 Pure hypercholesterolemia, unspecified (principal); E11.9 Type 2 diabetes mellitus without complications; R03.0 Elevated blood-pressure reading, without diagnosis of hypertension; K29.70 Gastritis, unspecified, without bleeding; M23.51 Chronic instability of knee, right knee; J30.89 Other allergic rhinitis; E55.9 Vitamin D deficiency, unspecified; F51.01 Primary insomnia; E66.3 Overweight; Z68.25 Body mass index [BMI] 25.0-25.9, adult; F17.210 Nicotine dependence, cigarettes, uncomplicated; Z79.899 Other long term (current) drug therapy | CPT/HCPCS: 96127; 99212 ==

== ENCOUNTER 2024-09-01 11:57 | Emergency (ER) | payer OTHER, SELFPAY ==
--- NOTE | ~2024-09-01 | XR_ITS ---
EXAMINATION: XR SHOULDER, LEFT CLINICAL INFORMATION: pain COMPARISON: None available. TECHNIQUE: AP external rotation, Grashey, scapular Y, and axillary views of the left shoulder. FINDINGS: The bones and soft tissues are normal. No fracture. Glenohumeral and acromioclavicular alignment is anatomic with normal joint space. No abnormal soft tissue calcifications. XR/XR shoulder LT min 2V IMPRESSION: Normal left shoulder. Electronically signed by: Sidney Jimenez MD 09/01/2024 01:59 PM EST
[2024-09-01 12:11] VITALS: BP 141/77; PULSE 93; RESP 18; TEMP 36.8; O2SAT 99; BMI 26.0
--- NOTE | 2024-09-01 12:12 | ED.GENADULT ---
HPI - General Adult General Chief complaint: Upper Respiratory Symptoms Stated complaint: Body aches Time Seen by Provider: 09/01/24 12:55 Source: patient and RN notes reviewed Mode of arrival: ambulatory Limitations: no limitations History of Present Illness ED Provider: Jane Celestin PA-C HPI narrative: This is a 53-year-old male, with a history of hypertension, diabetes, hyperlipidemia, who presents emergency department with concerns for cold-like symptoms. Patient states that he has had body aches, chills, congestion starting yesterday. He denies any sore throat, headache, abdominal pain, nausea, vomiting, or diarrhea. He denies any chest pain or shortness of breath. No urinary symptoms. Patient reports that on Friday he went to the gym, and was doing an upper body workout, states that this was a for a longer period of time, typically works out for 1/2 hour however worked out for an hour that day. He woke up the next morning and had increased pain in his left arm and shoulder, pain worsens with movement. He has had no neck pain or head pain. He has been taking Tylenol which has provided him without any relief. MD complaint: Cold-like symptoms, left arm pain Onset (ago): day(s) Radiation: non-radiation Relieving factors: none Exacerbating factors: none Associated symptoms: cough and fever/chills Related Data Home Medications ?Medication ?Instructions ?Recorded ?Confirmed aspirin 81 mg tablet 81 mg PO DAILY 05/29/20 06/01/24 multivitamin-ferrous 1 tab PO DAILY 10/18/20 06/01/24 fumarate-folic acid 18 mg-400 mcg tablet (Centrum) Previous Rx's ?Medication ?Instructions ?Recorded omeprazole 40 mg capsule,delayed 40 mg PO DAILY 90 days #90 caps 01/21/24 release cholecalciferol (vitamin D3) 50 50 mcg PO DAILY 90 days #90 caps 05/19/24 mcg (2,000 unit) capsule ezetimibe 10 mg tablet 10 mg PO DAILY 90 days #90 tabs 05/19/24 pravastatin 40 mg tablet 40 mg PO DAILY 90 days #90 tabs 05/19/24 acetaminophen 500 mg tablet 1,000 mg (2 x 500 mg) PO Q6H PRN 09/01/24 (Tylenol Extra Strength) pain #30 tabs ibuprofen 600 mg tablet 600 mg PO Q6H PRN pain #30 tabs 09/01/24 oseltamivir 75 mg capsule (Tamiflu) 75 mg PO BID 5 days #10 caps 09/01/24 Allergies Allergy/AdvReac Type Severity Reaction Status Date / Time rosuvastatin [Crestor] AdvReac Intermediate myalgias Verified 09/01/24 12:14 Review of Systems Review of Systems: Yes all other systems are reviewed and are negative Constitutional: Constitutional: Reports as per HPI [facility] Past Medical History Medical History Diabetes mellitus Vitamin D deficiency Gastritis Tubular adenoma Pain in both feet Insomnia Overweight (BMI 25.0-29.9) Smoker Elevated blood pressure reading Allergic rhinitis Pure hypercholesterolemia Surgical History History of colonoscopy (~10/24/20) Hx of wisdom tooth extraction History of inguinal hernia repair History of vasectomy Family History Family History Father No problems noted. Mother No problems noted. Paternal Uncle History of stomach cancer Maternal Aunt Hx of breast cancer Son No problems noted. 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 [employer] Cognitive needs: No Hearing needs: No Vision needs: No Physical Exam ED Vital Signs: Vital Signs - 24 hr 09/01/24 12:11 09/01/24 14:44 Temperature 98.3 F 98.3 F Pulse Rate 93 93 Respiratory Rate 18 18 Blood Pressure 141/77 H 141/77 H Pulse Oximetry 99 99 Oxygen Delivery Method Room Air Room Air BMI result Body Mass Index 26.0 Const General: cooperative, comfortable and no acute distress Orientation/consciousness: patient oriented x3 Limitations: no limitations HENMT Head: Yes normal to inspection, Yes normocephalic and Yes atraumatic Ears: hearing grossly normal bilaterally General nose exam: Normal external nose present Face and sinus: Yes normal facial exam Mouth: Normal oral and palatal mucosa present, oropharynx normal and moist mucous membranes Throat: Yes posterior oropharynx normal Eyes General: appearance normal, both eyes and all related structures Eyelids: Yes eyelids normal Conjunctivae: conjunctivae normal Sclerae: sclerae normal Pupils: Equal, round and reactive pupils present EOM: EOMs intact bilaterally Neck Neck: Yes normal visual inspection, Yes full ROM and Yes no lymphadenopathy Lymphatic: no lymphadenopathy noted Chest Chest palpation & inspection: normal inspection of the chest Resp Effort & Inspection: normal respiratory effort and able to speak in complete sentences Auscultation: clear to auscultation bilaterally, no crackles, no rales, no rhonchi and no wheezes Cardio Rate: regular rate Rhythm: regular rhythm Heart sounds: S1 normal heart sound present and S2 normal heart sound present GI Inspection: Yes normal to inspection Skin General skin exam: no rashes or lesions noted Trauma: no lacerations or abrasions Wounds: no wounds Neuro General: patient oriented x3 and moves all extremities Cranial nerves: Yes Equal, round and reactive pupils present Extrem Other: Left shoulder with mild TTP ovelying the L AC joint. Able to abduct left arm to about 150 degrees. Able to forward flex shoulder to aabout 130 degrees. Neg empty can test. Radial pulse intact. capillary refill less then 2 seconds. General: Yes normal to inspection Right upper extremity: normal to inspection Left upper extremity: normal to inspection Right lower extremity: normal to inspection Left lower extremity: normal to inspection Course Course Course Narrative: This is a rapid medical exam performed by Latisha Greene NP: Additional HPI, ROS, PE not included below will be deferred to primary provider. Patient is a 53-year-old male with history of DM presenting with complaint of body aches, cough, left shoulder pain since yesterday. Tried to go to work but left due to pain. recently sick. Plan: viral serology, EKG, labs Medical Decision Making Medical Decision Making MDM Narrative: This is a 53-year-old male who presents emergency department for evaluation of cold-like symptoms and left arm pain. On arrival, patient mildly hypertensive at 141/77, all other vital signs within normal limits. L shoulder with mild ttp overlying the left ac joint with good ROM. He has no CP or SOB. Shoulder pain likely from overuse at gym. Xray obtained which was normal. Discussed we are unable to rule out any tendon/ligament involvement therefore if symptoms persist, he should f/u with ortho. Pt also here with cold sxs. Pt tested positive for influenza a and b. Called lab and this is not an error and patient does have influenza a and b. discussed with patient. All other labs WNL. He has no leukocytosis, no signs of anemia, chem with no electrolyte deranagement, no evidence of ISHA. trop x1 negative, he is not having chest pain and symptoms not consistent with ACS presentation. EKG NSR. Pt's flu sxs started yesterday therefore he is in window for tamiflu treatment. Discussed side effects. Given return precautions. He understands and agrees with plan. Stable for d/c. Differential Diagnosis Differential Diagnoses: The differential diagnosis associated with the presentation includes flu, covid, URI, left shoulder strain, fx Lab Data [facility] Lab Attestation statement: I reviewed the patient's lab results. see [facility] 09/01/24 12:42 09/01/24 12:42 Labs: Lab Results 09/01/24 Range/Units 12:42 WBC 5.1 (4.8-10.8) X10*3/uL RBC 5.33 (4.60-5.80) X10*6/uL Hgb 14.4 (14.0-18.0) g/dl Hct 43.5 (42.0-52.0) % MCV 81.6 (80.0-98.0) fL MCH 27.0 (27.0-33.0) pg MCHC 33.1 (31.0-36.0) g/dl RDW 14.6 (11.0-16.0) % Plt Count 197 (160-400) X10*3/uL MPV 9.8 (9.4-12.4) fL Immature Gran % (Auto) 0.2 (0.0-0.4) % Neut % (Auto) 61.3 (45-73) % Lymph % (Auto) 22.6 (20-40) % Brooke % (Auto) 12.3 H (2-11) % Eos % (Auto) 3.0 (0-4) % Baso % (Auto) 0.6 (0-2) % Lymph # (Auto) 1.1 L (1.2-4.9) X10*3/uL Brooke # (Auto) 0.6 (0.1-1.2) X10*3/uL Eos # (Auto) 0.2 (0.0-0.4) X10*3/uL Baso # (Auto) 0.0 (0.0-0.2) X10*3/uL Abs Immat Gran (auto) 0.01 (0.00-0.03) X10*3/uL Absolute Neuts (auto) 3.1 (2.0-8.3) x10*3/uL Absolute Nucleated RBC 0.000 (0.0-0.012) X10*3/uL Nucleated RBC % (auto) 0.0 (0.0-0.2) /100WBC PT 12.9 H (10.9-12.4) SEC INR 1.1 (0.9-1.1) Sodium 137 (135-145) mmol/L Potassium 3.8 (3.3-5.1) mmol/L Chloride 104 (96-108) mmol/L Carbon Dioxide 27 (22-29) mmol/L Anion Gap 10 L (12-20) BUN 11 (9-16) mg/dL Creatinine 1.05 (0.5-1.4) mg/dL Estim Creat Clear Calc 85.6 Estimated GFR > 60 Random Glucose 115 (60-115) mg/dL Calcium 9.4 (8.4-10.2) mg/dL Total Bilirubin 0.3 (0.0-1.0) mg/dL AST 19 (5-37) U/L ALT 27 (0-40) U/L Alkaline Phosphatase 82 (39-117) U/L Troponin I High Sens < 2.7 (<3.5-35.0) ng/L Total Protein 7.2 (6.5-8.0) g/dL Albumin 4.1 (3.5-5.0) g/dL Influenza Type A (PCR) POSITIVE A (Negative) Influenza Type B (PCR) POSITIVE A (Negative) RSV RNA Qual (PCR) NEGATIVE (Negative) SARS-CoV-2 RNA (RT-PCR) NEGATIVE (Negative) Independent Interpretation I performed an independent interpretation of an: EKG Interpretation: EKG NSR at a ventricular rate of 93bpm. no STEMI Radiology Impression Discussion of test interpretation with radiology: I have reviewed the radiologist's reading. Radiologist Impression: [id number] [place] [address] XRay Report Signed Patient: Josefina Markham MR#: [id number] : 1970 Acct:[id number] Age/Sex: 53 / M ADM Date: 09/01/24 Loc: .ED Attending Dr: Ordering Physician: Jane Celestin Date of Service: 09/01/24 Procedure(s): XR shoulder LT min 2V Accession Number(s): [id number] cc: Harinder Fuller MD; Jane Celestin~ EXAMINATION: XR SHOULDER, LEFT CLINICAL INFORMATION: pain COMPARISON: None available. TECHNIQUE: AP external rotation, Grashey, scapular Y, and axillary views of the left shoulder. FINDINGS: The bones and soft tissues are normal. No fracture. Glenohumeral and acromioclavicular alignment is anatomic with normal joint space. No abnormal soft tissue calcifications. XR/XR shoulder LT min 2V IMPRESSION: Normal left shoulder. Electronically signed by: Sidney Jimenez MD 09/01/2024 01:59 PM [facility] [place] Dictated By: Sidney Jimenez MD Discharge Plan Discharge Clinical Impression: Influenza A, Influenza B, Left shoulder pain Patient Disposition: Home, Self-Care Instructions: Influenza (ED), Shoulder Pain (ED) Additional Instructions: You were seen in the emergency department and tested positive for influenza a and B. Influenza is also known as the flu. This is contagious, limit your exposures to other people. Please take Tamiflu as prescribed. Drink plenty of fluids get plenty of rest. Alternate between ibuprofen and or Tylenol as needed for pain and fevers. If any new or worsening symptoms occur including but not limited to chest pain, or shortness of breath, please seek emergent care. Your left shoulder x-ray does not show any bony abnormalities. Follow-up with the [facility]. Prescriptions: New oseltamivir [Tamiflu] 75 mg capsule 75 mg PO BID 5 Days Qty: 10 0RF ibuprofen 600 mg tablet 600 mg PO Q6H PRN (Reason: pain) Qty: 30 0RF acetaminophen [Tylenol Extra Strength] 500 mg tablet 1,000 mg PO Q6H PRN (Reason: pain) Qty: 30 0RF No Action cholecalciferol (vitamin D3) 50 mcg (2,000 unit) capsule 50 mcg PO DAILY 90 Days Qty: 90 3RF pravastatin 40 mg tablet 40 mg PO DAILY 90 Days Qty: 90 3RF ezetimibe 10 mg tablet 10 mg PO DAILY 90 Days Qty: 90 3RF aspirin 81 mg Tablet 81 mg PO DAILY Centrum 18-400 mg-mcg Tablet 1 tab PO DAILY omeprazole 40 mg capsule,delayed release(DR/EC) 40 mg PO DAILY 90 Days Qty: 90 3RF Referrals: [facility] Orthopedic Surgeons [Provider Group] Interventions: ED Discharge Assessment Last Done: 09/01/24 14:44 Discharge Date/Time: 09/01/24 14:44 Print Language: Syriac
--- NOTE | 2024-09-01 12:13 | ECG_ITS ---
Test Reason : LEFT SHOULDER PAIN Blood Pressure : */* mmHG Vent. Rate : 93 BPM Atrial Rate : 93 BPM P-R Int : 154 ms QRS Dur : 84 ms QT Int : 334 ms P-R-T Axes : 31 44 66 degrees QTcB Int : 415 ms Normal sinus rhythm Normal ECG When compared with ECG of 23-Nov-2021 20:25, No significant change was found Referred By: Mary Ann Greene Electronically Signed By: JANETT KAN MD
[2024-09-01 12:46] LABS: MANUAL DIFF FLAG NO
[2024-09-01 12:48] LABS: Basophils Percent Auto 0.6 % (0-2); Eosinophils Absolute Auto 0.2 X10*3/uL (0.0-0.4); Hematocrit 43.5 % (42.0-52.0); Hemoglobin 14.4 g/dl (14.0-18.0); Imm Gran Abs Auto 0.01 X10*3/uL (0.00-0.03); Imm Gran Pct Auto 0.2 % (0.0-0.4); Lymphocytes Absolute Auto 1.1 X10*3/uL (1.2-4.9); Lymphocytes Percent Auto 22.6 % (20-40); Mean Corpuscular HGB Conc 33.1 g/dl (31.0-36.0); Mean Corpuscular Volume 81.6 fL (80.0-98.0); Mean Platelet Volume 9.8 fL (9.4-12.4); Monocytes Absolute Auto 0.6 X10*3/uL (0.1-1.2); Monocytes Percent Auto 12.3 % (2-11); Neutrophils Absolute Auto 3.1 x10*3/uL (2.0-8.3); Neutrophils Percent Auto 61.3 % (45-73); Platelet Count 197 X10*3/uL (160-400); Red Blood Count 5.33 X10*6/uL (4.60-5.80); Red Cell Distribution Width 14.6 % (11.0-16.0); White Blood Count 5.1 X10*3/uL (4.8-10.8)
[2024-09-01 12:55] LABS: INTERNATIONAL NORM RATIO 1.1 (0.9-1.1); Prothrombin Time 12.9 SEC (10.9-12.4)
[2024-09-01 13:08] LABS: Alanine Aminotransferase 27 U/L (0-40); Albumin Level 4.1 g/dL (3.5-5.0); Alkaline Phosphatase 82 U/L (39-117); Anion Gap 10 (12-20); Aspartate Amino Transferase 19 U/L (5-37); Bilirubin Total 0.3 mg/dL (0.0-1.0); Blood Urea Nitrogen 11 mg/dL (9-16); Calcium 9.4 mg/dL (8.4-10.2); Carbon Dioxide 27 mmol/L (22-29); Chloride 104 mmol/L (96-108); Creatinine Clr Calc Pharmacy 85.6; Estimated Glomerular Filt Rate > 60; Glucose Random 115 mg/dL (60-115); Potassium 3.8 mmol/L (3.3-5.1); Sodium 137 mmol/L (135-145); Total Protein 7.2 g/dL (6.5-8.0)
[2024-09-01 13:16] LABS: Troponin-I High Sensitivity < 2.7 ng/L (<3.5-35.0)
[2024-09-01 13:24] LABS: Influenza A PCR POSITIVE (Negative); Influenza B PCR POSITIVE (Negative); Resp Syncy Virus RNA Qual PCR NEGATIVE (Negative); SARS COV2 PCR INHOUSE NEGATIVE (Negative)
[2024-09-01 14:44] VITALS: BP 141/77; PULSE 93; RESP 18; TEMP 36.8; O2SAT 99
== END 2024-09-01 14:44 | disposition home or self-care (01) ==
PROVIDERS: Registered Nurse Emergency; Emergency Provider Emergency Medicine; PCP Internal Medicine
DX: J10.1 Influenza due to other identified influenza virus with other respiratory manifestations (principal); M79.10 Myalgia, unspecified site; R50.9 Fever, unspecified; R05.9 Cough, unspecified; M25.512 Pain in left shoulder; F17.210 Nicotine dependence, cigarettes, uncomplicated; Z03.818 Encounter for observation for suspected exposure to other biological agents ruled out; Z79.899 Other long term (current) drug therapy
CPT/HCPCS: 0241U; 36415; 73030; 80053; 84484; 85025; 85610; 93005; 99283

== ENCOUNTER → 2024-09-01 12:13 | Outpatient (BNV) | payer OTHER, SELFPAY | PROVIDERS: Emergency Provider Emergency Medicine; PCP Internal Medicine; Visit Provider Internal Medicine Cardiovascular Disease | DX: M25.512 Pain in left shoulder (principal) | CPT/HCPCS: 93010 ==

== ENCOUNTER → 2024-09-01 13:40 | Outpatient (BNV) | payer OTHER, SELFPAY | PROVIDERS: Emergency Provider Emergency Medicine; PCP Internal Medicine; Visit Provider Radiology Diagnostic Radiology | DX: M25.512 Pain in left shoulder (principal) | CPT/HCPCS: 73030 ==

== ENCOUNTER 2024-09-27 17:07 | Outpatient (AMB) | payer OTHER, SELFPAY ==
[2024-09-27 17:08] VITALS: BP 136/82; PULSE 86; O2SAT 98; BMI 26.8
--- NOTE | 2024-09-27 17:08 | A.OFFPC_ITS ---
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 Required: No Accompanied by: Self / Same As Patient Allergies rosuvastatin [Crestor] Adverse Reaction (Intermediate, Verified 09/27/24 17:36) myalgias Medication List - Last Reconciled 09/28/24 by Harinder Fuller MD acetaminophen (Tylenol Extra Strength) 1,000 mg (2 x 500 mg) PO Q6H PRN aspirin 81 mg PO DAILY cholecalciferol (vitamin D3) 50 mcg PO DAILY 90 days ezetimibe 10 mg PO DAILY 90 days ibuprofen 600 mg PO Q6H PRN sbetmjhdjuup-whyv-ciprf acid 18-400 mg-mcg (Centrum) 1 tab PO DAILY omeprazole 40 mg PO DAILY 90 days pravastatin 40 mg PO DAILY 90 days Tobacco use date assessed: 09/27/24 Dental Screening Dental Screen Date: 09/27/24 Did you have a dental visit in the last 12 months?: Yes Did you have a dental problem in the last 6 months where you did not have access to dental care?: No Was dental information given to patient?: Patient has dentist HPI 4 month f/u HPI Details Patient comes in today for his follow-up visit He went to the ER about 3 weeks ago complaining of generalized malaise, chills and cough and congestion and tested positive for both influenza A and B and was started promptly on Tamiflu Patient states that his respiratory symptoms gradually improved over the next 1- 2 weeks States that he currently feels okay and that all of his flu symptoms have since cleared up He denies any headaches or dizziness Denies any chest pains, no increased shortness of breath No nausea/vomiting, no abdominal pain No change in bowel habits noted He was not able to get his follow-up labs done prior to his appointment today [facility] Medical History Diabetes mellitus Vitamin D deficiency Gastritis Tubular adenoma Pain in both feet Insomnia Overweight (BMI 25.0-29.9) Smoker Elevated blood pressure reading Allergic rhinitis Pure hypercholesterolemia Surgical History History of colonoscopy (~10/24/20) Hx of wisdom tooth extraction History of inguinal hernia repair History of vasectomy Family History Father No problems noted. Mother No problems noted. Paternal Uncle History of stomach cancer Maternal Aunt Hx of breast cancer Son No problems noted. 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 1. Little interest or pleasure in doing things: not at all 2. Feeling down, depressed, or hopeless: not at all 3. Trouble falling or staying asleep, or sleeping too much: not at all 4. Feeling tired or having little energy: not at all 5. Poor appetite or overeating: not at all 6. Feeling bad about yourself - or that you are a failure or have let yourself or your family down: not at all 7. Trouble concentrating on things, such as reading the newspaper or watching television: not at all 8. Moving or speaking so slowly that other people could have noticed. Or the op posite - being so fidgety or restless that you have been moving around a lot more than usual: not at all 9. Thoughts that you would be better off or of hurting yourself in some way: not at all Total score: 0 Depression Screening Interpretation: Negative Depression Screening Done: Yes 99146 - PHQ-9 Billing: Yes Source: Developed by Drs. Andrés Narayan, Caitlyn Espino, Kalyan Savage and colleagues, with an educational laz from [employer]. Thrive Questionnaire Date Thrive assessed: 09/27/24 I am a: Patient What is your living situation today?: I have a steady place to live Within the past 12 months, did the food you bought not last and you didn't have the money to get more?: Never true Within the past 12 months, did you worry whether your food would run out before you got money to buy more?: Never true Do you have trouble paying for medicines?: No Do you have trouble getting transportation to medical appointments?: No Do you have trouble paying your heating and electricity bill?: No Do you have trouble taking care of your child, family member or friend?: No Do you have trouble with day-to-day activities such as bathing, preparing meals, shopping, managing finances, etc.?: No Are you currently unemployed and looking for a job?: No Are you interested in more education?: No Please select the resources that you would like help with: None Currently or been in a relationship where the following occur: No concerns reported THRIVE Score: 0 AUDIT C Alcohol Use Questionnaire (AUDIT-C) 1. How often do you have a drink containing alcohol?: 2-4 times a month 2. How many drinks containing alcohol do you have on a typical day when you are drinking?: 3 or 4 3. How often do you have six or more drinks on one occasion?: Never Total Score: 3 Score Reviewed/Action Taken: Yes EMEKA-7 AMB Questionnaire EMEKA-7 Date EMEKA - 7 assessed: 09/27/24 Feeling nervous, anxious, or on edge: 0 = Not at all Not being able to stop or control worryin = Not at all Worrying too much about different things: 0 = Not at all Trouble relaxin = Not at all Being so restless that it is hard to sit still: 0 = Not at all Becoming easily annoyed or irritable: 0 = Not at all Feeling afraid as if something awful might happen: 0 = Not at all Total EMEKA-7 score (0-4 normal; 5-9 mild; 10-14 moderate; 15-21 severe): 0 Source: Developed by Drs. Andrés Narayan, Caitlyn Espino, Kalyan Savage and colleagues, with an educational laz from [employer]. Review of Systems Const Denies chills, Denies fatigue, Denies fever(s) and Denies headache(s) ENT Denies dysphagia, Denies dizziness, Denies otalgia, Denies headache(s), Denies neck pain, Denies odynophagia and Denies sore throat Card Denies chest pain, Denies irregular heart rhythm, Denies palpitations and Denies dyspnea Resp Denies chest congestion, Denies cough and Denies dyspnea GI Denies abdominal pain, Denies constipation, Denies dysphagia, Denies heartburn, Denies diarrhea, Denies nausea, Denies odynophagia and Denies vomiting Denies difficulty urinating, Denies dysuria, Denies nocturia and Denies urinary frequency Musc Denies back pain, Denies arthralgias and Denies neck pain Skin/Breast Denies rash Neuro Denies dizziness, Denies headache(s) and Denies paresthesias Endo Denies fatigue and Denies palpitations Physical exam (Primary Care) Vital Signs: Last Vital Signs Pulse 86 09/27/24 17:08 BP 136/82 09/27/24 17:08 Pulse Ox 98 09/27/24 17:08 Oxygen Delivery Method Room Air 09/27/24 17:08 BMI result Body Mass Index 26.8 Tobacco/Smoking Status: Tobacco use Status Tobacco use date assessed 09/27/24 09/27/24 17:11 Patient Tobacco Use Status Current everyday Tobacco 09/27/24 17:11 e-Cigarette/Vaping Use Never Used 09/27/24 17:11 PHQ-9: PHQ-9 Score PHQ-9: Total score 0 09/27/24 17:58 Depression Screening Interpretation: Negative Thrive Assessment: Date of Thrive Assessment Date Thrive assessed 09/27/24 09/27/24 17:11 Currently or been in a relationship where the following occur: No concerns reported Const General: no acute distress and alert HENMT Ears: TM's normal bilaterally and EAC's normal Throat: Yes posterior oropharynx normal and Yes tonsils normal (no TP congestion) Neck Neck: Yes supple and No lymphadenopathy Thyroid: Thyroid normal Resp Auscultation: clear to auscultation bilaterally, no rales and no wheezes Cardio Rate: regular rate Rhythm: regular rhythm Heart sounds: no murmurs GI Palpation (GI): Soft to palpation and nontender Auscultation: normal bowel sounds General: Yes no CVA tenderness Back/Spine/Pelvis Back: no CVA tenderness Thoracic/Lumbar Spine: No lumbar spinal tenderness Skin Rashes: no rashes Extrem General: Yes no clubbing, cyanosis or edema Results AMB Hemoglobin A1c AMB Hemoglobin A1c 5.8 % Last Edit by BANDAR Alfonso on 09/27/24 17:5 8 Results Reviewed Results Reviewed: Laboratory Last Values Hgb A1c (Clinic) 5.8 % (4.0-6.0) 09/27/24 17:57 Coding Level of Care Code Est Pt Level 4 (91375) Diagnoses Pure hypercholesterolemia E78.00 Type 2 diabetes mellitus without complication, without long-term current use of insulin E11.9 Diabetes mellitus type: type 2 Diabetes mellitus retirement insulin use: without retirement use Diabetes mellitus complication status: without complication Elevated blood pressure reading R03.0 Gastritis without bleeding, unspecified chronicity, unspecified gastritis type K29.70 Gastritis type: unspecified gastritis Chronicity: unspecified Gastritis bleeding: without bleeding Recurrent right knee instability M23.51 Allergic rhinitis due to other allergic trigger, unspecified seasonality J30.89 Allergic rhinitis trigger: other Allergic rhinitis seasonality: unspecified Vitamin D deficiency E55.9 Primary insomnia F51.01 Insomnia type: primary Smoker F17.200 Overweight (BMI 25.0-29.9) E66.3 Additional Codes PHQ-9 - 19882 - PHQ-9 Billing: Yes ([id number]) Assessment & Plan Assessment & Plan (1) Pure hypercholesterolemia: Code(s): E78.00 - Pure hypercholesterolemia, unspecified Category: Medical Plan: Patient was not able to get his follow up labs done prior to his appointment today Reinforced low cholesterol diet Continue Pravastatin 40 mg QD and Ezetimibe 10 mg QD Will recheck his labs and fasting lipids in 4 months for follow-up - will just have patient use his current orders (updated) for his next lab draw (2) Diabetes mellitus: Code(s): E11.9 - Type 2 diabetes mellitus without complications Category: Medical Qualifiers: Diabetes mellitus type: type 2 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 Diabetes mellitus complication status: without complication Qualified Code(s): E11.9 - Type 2 diabetes mellitus without complications Plan: His in-office HgbA1c today is at 5.8% (HgbA1c was previously at 6.1% a few months ago) - goal is ideally <6.5% We have previously recommended that he start taking some Rx to help control his blood sugar and to slow down the progression of his diabetes but patient declined and wanted to continue working on diet modification Reinforced diabetic diet Will recheck his HgbA1c and FBS in 4 months for follow up (3) Elevated blood pressure reading: Code(s): R03.0 - Elevated blood-pressure reading, without diagnosis of hypertension Category: Medical Plan: His BP today again appears acceptable but should ideally be at 120/80 mm or less Reinforced low sodium diet Patient is reminded to continue checking and monitoring his blood pressure regularly (4) Gastritis: Comment: S/P 14-days Tx with Bismuth, Flagyl and Doxycycline for H. pylori Code(s): K29.70 - Gastritis, unspecified, without bleeding Category: Medical Qualifiers: Gastritis type: unspecified gastritis Chronicity: unspecified Gastritis bleeding: without bleeding Qualified Code(s): K29.70 - Gastritis, unspecified, without bleeding Plan: S/P Tx for H. pylori x 14 days in 2021 - states that his GI symptoms have improved a lot with treatment Dietary restrictions reinforced Continue Omeprazole 40 mg QD Follow up with GI as scheduled (5) Recurrent right knee instability: Code(s): M23.51 - Chronic instability of knee, right knee Category: Medical Plan: Have advised patient that his right knee x-rays done last year revealed (+) degenerative changes with irregularity, most notable along the posterior aspect of the patella He states that his right knee has been feeling better lately and does not feel like before when it was ready to give out on him at any time Have advised him to continue with knee exercises regularly to help strengthen the muscles that support his knee, which should result in less knee pain and injury (6) Allergic rhinitis: Code(s): J30.9 - Allergic rhinitis, unspecified Category: Medical Qualifiers: Allergic rhinitis trigger: other Allergic rhinitis seasonality: unspecified Qualified Code(s): J30.89 - Other allergic rhinitis Plan: Continue Loratadine 10 mg QD PRN (7) Vitamin D deficiency: Code(s): E55.9 - Vitamin D deficiency, unspecified Category: Medical Plan: Continue Vitamin D3 2000 units QD (8) Insomnia: Code(s): G47.00 - Insomnia, unspecified Category: Medical Qualifiers: Insomnia type: primary Qualified Code(s): F51.01 - Primary insomnia Plan: Sleep hygiene reinforced (9) Smoker: Code(s): F17.200 - Nicotine dependence, unspecified, uncomplicated Category: Social Hx Plan: Patient is counseled again on smoking cessation (10) Overweight (BMI 25.0-29.9): Code(s): E66.3 - Overweight Category: Medical Plan: Reinforced diet/exercise as tolerated/lose weight Plan Follow up in 4 months Orders: Orders AMB Hemoglobin A1c 09/27/24 E11.9 - Type 2 diabetes mellitus without complications
== END 2024-09-27 17:39 | disposition home or self-care (01) ==
PROVIDERS: PCP Internal Medicine; Visit Provider Internal Medicine
DX: E78.00 Pure hypercholesterolemia, unspecified (principal); E11.9 Type 2 diabetes mellitus without complications; R03.0 Elevated blood-pressure reading, without diagnosis of hypertension; K29.70 Gastritis, unspecified, without bleeding; M23.51 Chronic instability of knee, right knee; J30.89 Other allergic rhinitis; E55.9 Vitamin D deficiency, unspecified; F51.01 Primary insomnia; F17.200 Nicotine dependence, unspecified, uncomplicated; E66.3 Overweight

== ENCOUNTER → 2024-09-27 17:07 | Outpatient (BNVA) | payer OTHER, SELFPAY | PROVIDERS: PCP Internal Medicine; Visit Provider Internal Medicine | DX: E78.00 Pure hypercholesterolemia, unspecified (principal); E11.9 Type 2 diabetes mellitus without complications; R03.0 Elevated blood-pressure reading, without diagnosis of hypertension; K29.70 Gastritis, unspecified, without bleeding; M23.51 Chronic instability of knee, right knee; J30.89 Other allergic rhinitis; E55.9 Vitamin D deficiency, unspecified; F51.01 Primary insomnia; E66.3 Overweight; F17.200 Nicotine dependence, unspecified, uncomplicated; Z71.6 Tobacco abuse counseling; Z71.3 Dietary counseling and surveillance | CPT/HCPCS: 83036; 96127; 99212 ==

== ENCOUNTER 2024-10-12 10:01 | Outpatient (AMB) | payer OTHER, SELFPAY ==
--- NOTE | 2024-10-12 10:04 | A.OFFVIS_ITS ---
Vital Signs 10/12/24 10:08 Height 5 ft 11 in Weight 192 lb BMI 26.8 Handedness Right Intake Visit Reasons: New Pt - Left shoulder pain Intake Note: Josefina is a 53 year old right hand dominant male who presents today as a new patient for a evaluation of his left shoulder pain, pain started on 08/30/24. However patient feels like his pain has been going on for longer. Patient reports that he went to the gym, and was doing an upper body workout. He woke up the next day and had increased pain in his left arm and shoulder, pain was worse when he is applying pressure and laying down. He also mentions that he plays pool and it causes him a lot of pain when he is putting pressure on his left shoulder. IMPRESSION: Normal left shoulder Allergies rosuvastatin [Crestor] Adverse Reaction (Intermediate, Verified 10/12/24 10:04) myalgias HPI HPI New Pt - Left shoulder pain: Details: Mr. Markham is a 53-year-old right-hand dominant male who presents to the office today for evaluation of left shoulder pain. Reports that he was at the gym and did an upper body workout on 08/30/2024 that seemed to exacerbate his left shoulder pain. Ever since then, he has had a gradual increase of steady left shoulder pain. His pain radiates from the shoulder to the elbow. His pain is worsened with overhead reaching. Additionally, he does like to play pool and feels an increase in pain when applying pressure to the left upper extremity to brace himself on the table while taking a shot. [facility] Medical History Diabetes mellitus Vitamin D deficiency Gastritis Tubular adenoma Pain in both feet Insomnia Overweight (BMI 25.0-29.9) Smoker Elevated blood pressure reading Allergic rhinitis Pure hypercholesterolemia Surgical History History of colonoscopy (~10/24/20) Hx of wisdom tooth extraction History of inguinal hernia repair History of vasectomy Family History Father No problems noted. Mother No problems noted. Paternal Uncle History of stomach cancer Maternal Aunt Hx of breast cancer Son No problems noted. 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 No ecchymosis, erythema, or edema. Full shoulder ROM in all planes. Patient reports pain with the last 45 degrees of forward flexion and abduction. Negative cross-body reach. Negative empty can. N egative drop arm. NVI. Office Procedures AMB Joint Injection/Aspiration Joint Injection/Aspiration Primary Site: left shoulder Prep: site was prepped using aseptic technique, ethochloride spray was applied and injection warnings given Injected: 80 mg of, DepoMedrol, with 8 mL of (2% plain lidocaine) and in the subcromial space Approach Used: posterolateral Procedure: The patient tolerated the procedure well, but had some pain with the injection and there was some relief with the local anesthesia Coding 85747 - Large joint Procedure code (CPT) selection complete Assessment & Plan Assessment & Plan (1) Painful arc syndrome of left shoulder: Code(s): M75.102 - Unspecified rotator cuff tear or rupture of left shoulder, not specified as traumatic Category: Medical Plan Mr. Markham is a 53-year-old right-hand dominant male who presents to the office today for evaluation of left shoulder pain. Reports that he was at the gym and did an upper body workout on 08/30/2024 that seemed to exacerbate his left shoulder pain. Ever since then, he has had a gradual increase of steady left shoulder pain. His pain radiates from the shoulder to the elbow. His pain is worsened with overhead reaching. Additionally, he does like to play pool and feels an increase in pain when applying pressure to the left upper extremity to brace himself on the table while taking a shot. While in the office today, we discussed the role of cortisone injection and physical therapy. The patient was offered a cortisone injection in the left shoulder with 80 mg of DepoMedrol. The patient was explained the risks, benefits, and alternatives to receiving this injection. After receiving consent for the injection, the patient had the procedure done while in the office today. The patient tolerated the procedure well with no complications. The patient would like to hold off on physical therapy at this time and should his pain continue he will contact our office and I am happy to place an order. I would follow up with him after physical therapy. He will follow up p.r.n., sooner if needed. X-rays of the left shoulder which were obtained while in the office today and were reviewed by me, Heather Thurman PA-C, revealed no acute fracture dislocation. Coding Level of Care Code New Pt Level 3 (32540) Diagnoses Painful arc syndrome of left shoulder M75.102 CPT Codes Coding - 73842 Large joint: 14647 - Large joint ([id number])
[2024-10-12 10:08] VITALS: BMI 26.8
== END 2024-10-12 10:24 | disposition home or self-care (01) ==
PROVIDERS: PCP Internal Medicine; Visit Provider Physician Assistant
DX: M75.102 Unspecified rotator cuff tear or rupture of left shoulder, not specified as traumatic (principal)
CPT/HCPCS: 20610; 99203

== ENCOUNTER → 2024-10-12 10:01 | Outpatient (BNVA) | payer OTHER, SELFPAY | PROVIDERS: PCP Internal Medicine; Visit Provider Physician Assistant | DX: M75.102 Unspecified rotator cuff tear or rupture of left shoulder, not specified as traumatic (principal) | CPT/HCPCS: 20610; 99202; J1010; J2003 ==

== ENCOUNTER 2025-02-08 07:57 | Outpatient (REF) | payer OTHER, SELFPAY ==
[2025-02-08 08:22] LABS: MANUAL DIFF FLAG NO
[2025-02-08 08:58] LABS: Hematocrit 42.9 % (42.0-52.0); Hemoglobin 14.4 g/dl (14.0-18.0); Imm Gran Abs Auto 0.01 X10*3/uL (0.00-0.03); Imm Gran Pct Auto 0.2 % (0.0-0.4); Lymphocytes Absolute Auto 2.4 X10*3/uL (1.2-4.9); Mean Corpuscular HGB Conc 33.6 g/dl (31.0-36.0); Mean Corpuscular Hemoglobin 26.9 pg (27.0-33.0); Mean Corpuscular Volume 80.2 fL (80.0-98.0); NRBC Abs Auto 0.000 X10*3/uL (0.0-0.012); NRBC Pct Auto 0.0 /100WBC (0.0-0.2); Platelet Count 204 X10*3/uL (160-400); Red Blood Count 5.35 X10*6/uL (4.60-5.80); White Blood Count 6.3 X10*3/uL (4.8-10.8)
[2025-02-08 09:10] LABS: Hemoglobin A1C 138.1459 umol/L; Total Hemoglobin (HGBA1C) 3820.7492 umol/L
[2025-02-08 09:24] LABS: Appearance Urine Clear; Glucose Urine UA Negative (Negative); PH 6.0 (5.0-9.0); Specific Gravity - Urine 1.020 (1.005-1.025)
[2025-02-08 09:37] LABS: Alanine Aminotransferase 26 U/L (0-40); Albumin Level 4.5 g/dL (3.5-5.0); Alkaline Phosphatase 86 U/L (39-117); Anion Gap 12 (12-20); Aspartate Amino Transferase 28 U/L (5-37); Blood Urea Nitrogen 22 mg/dL (9-16); Calcium 9.2 mg/dL (8.4-10.2); Carbon Dioxide 25 mmol/L (22-29); Chloride 107 mmol/L (96-108); Cholesterol 156 mg/dL (<200); Estimated Glomerular Filt Rate > 60; HDL Cholesterol 32 mg/dL (>40); Potassium 4.0 mmol/L (3.3-5.1); Sodium 140 mmol/L (135-145); Total Protein 7.0 g/dL (6.5-8.0); Triglycerides 240 mg/dL (<150)
== END 2025-02-08 07:58 | disposition home or self-care (01) ==
LOC: HO.LAB 07:57
PROVIDERS: PCP Internal Medicine; Visit Provider Internal Medicine
DX: D64.9 Anemia, unspecified (principal); E78.00 Pure hypercholesterolemia, unspecified; E11.9 Type 2 diabetes mellitus without complications; R30.0 Dysuria; E55.9 Vitamin D deficiency, unspecified
CPT/HCPCS: 36415; 80053; 80061; 81003; 82043; 82306; 82570; 83036; 85025

== ENCOUNTER 2025-02-09 16:14 | Outpatient (AMB) | payer OTHER, SELFPAY ==
[2025-02-09 16:15] VITALS: BP 120/84; PULSE 70; O2SAT 98; BMI 25.3
--- NOTE | 2025-02-09 16:15 | MHC.PC.OV ---
Vital Signs 02/09/25 16:15 Height 5 ft 11 in Weight 181 lb 2 oz BMI 25.3 BP 120/84 Blood Pressure Location Lt brachial Position Sitting Pulse 70 Pulse Source Pulse Oximeter Pulse Oximetry (%) 98 Oxygen Delivery Method Room Air Intake Visit Reasons: 4 month f/u Client Relationship Executive Required: No Accompanied by: Self / Same As Patient Allergies rosuvastatin (Crestor) Adverse Reaction (Intermediate, Verified 02/09/25 16:54) myalgias Medication List - Last Reconciled 02/09/25 by Harinder Fuller MD acetaminophen (Tylenol Extra Strength) 1,000 mg (2 x 500 mg) PO Q6H PRN aspirin 81 mg PO DAILY cholecalciferol (vitamin D3) 50 mcg PO DAILY 90 days ezetimibe 10 mg PO DAILY 90 days ibuprofen 600 mg PO Q6H PRN rjpqhxjnqsfb-uaao-lehtz acid 18-400 mg-mcg (Centrum) 1 tab PO DAILY omeprazole 40 mg PO DAILY 90 days pravastatin 40 mg PO DAILY 90 days Tobacco use date assessed: 02/09/25 Dental Screening Dental Screen Date: 02/09/25 Did you have a dental visit in the last 12 months?: Yes Did you have a dental problem in the last 6 months where you did not have access to dental care?: No Was dental information given to patient?: Patient has dentist HPI 4 month f/u HPI Details Patient comes in today for his follow-up visit States that he feels okay He denies any headaches or dizziness Denies any chest pains, no shortness of breath No nausea/vomiting, no abdominal pain No change in bowel habits noted Needs a couple of his Rx refilled today He had his follow-up labs done yesterday - to discuss his results [facility] Medical History Diabetes mellitus Vitamin D deficiency Gastritis Tubular adenoma Pain in both feet Insomnia Overweight (BMI 25.0-29.9) Smoker Elevated blood pressure reading Allergic rhinitis Pure hypercholesterolemia Surgical History History of colonoscopy (~10/24/20) Hx of wisdom tooth extraction History of inguinal hernia repair History of vasectomy Family History Father No problems noted. Mother No problems noted. Paternal Uncle History of stomach cancer Maternal Aunt Hx of breast cancer Son No problems noted. 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 1. Little interest or pleasure in doing things: not at all 2. Feeling down, depressed, or hopeless: not at all 3. Trouble falling or staying asleep, or sleeping too much: not at all 4. Feeling tired or having little energy: not at all 5. Poor appetite or overeating: not at all 6. Feeling bad about yourself - or that you are a failure or have let yourself or your family down: not at all 7. Trouble concentrating on things, such as reading the newspaper or watching television: not at all 8. Moving or speaking so slowly that other people could have noticed. Or the opposite - being so fidgety or restless that you have been moving around a lot more than usual: not at all 9. Thoughts that you would be better off or of hurting yourself in some way: not at all Total score: 0 Depression Screening Interpretation: Negative Depression Screening Done: Yes 33306 - PHQ-9 Billing: Yes Source: Developed by Drs. Andrés Narayan, Caitlyn Espino, Kalyan Savage and colleagues, with an educational laz from [employer]. Thrive Questionnaire Date Thrive assessed: 02/09/25 I am a: Patient What is your living situation today?: I have a steady place to live Within the past 12 months, did the food you bought not last and you didn't have the money to get more?: I choose not to answer this question Within the past 12 months, did you worry whether your food would run out before you got money to buy more?: I choose not to answer this question Do you have trouble paying for medicines?: I choose not to answer this question Do you have trouble getting transportation to medical appointments?: No Do you have trouble paying your heating and electricity bill?: I choose not to answer this question Do you have trouble taking care of your child, family member or friend?: I choose not to answer this question Do you have trouble with day-to-day activities such as bathing, preparing meals, shopping, managing finances, etc.?: No Are you currently unemployed and looking for a job?: No Are you interested in more education?: No Please select the resources that you would like help with: None Currently or been in a relationship where the following occur: No concerns reported THRIVE Score: 0 AUDIT C Alcohol Use Questionnaire (AUDIT-C) 1. How often do you have a drink containing alcohol?: 2-4 times a month 2. How many drinks containing alcohol do you have on a typical day when you are drinking?: 5 or 6 3. How often do you have six or more drinks on one occasion?: Monthly Total Score: 6 Score Reviewed/Action Taken: Yes EMEKA-7 AMB Questionnaire EMEKA-7 Date EMEKA - 7 assessed: 02/09/25 Feeling nervous, anxious, or on edge: 0 = Not at all Not being able to stop or control worryin = Not at all Worrying too much about different things: 0 = Not at all Trouble relaxin = Not at all Being so restless that it is hard to sit still: 0 = Not at all Becoming easily annoyed or irritable: 0 = Not at all Feeling afraid as if something awful might happen: 0 = Not at all Total EMEKA-7 score (0-4 normal; 5-9 mild; 10-14 moderate; 15-21 severe): 0 Source: Developed by Drs. Andrés Narayan, Caitlyn Espino, Kalyan Savage and colleagues, with an educational laz from [employer]. Review of Systems Const Denies chills, Denies fatigue, Denies fever(s) and Denies headache(s) ENT Denies dysphagia, Denies dizziness, Denies otalgia, Denies headache(s), Denies neck pain, Denies odynophagia and Denies sore throat Card Denies chest pain, Denies irregular heart rhythm, Denies palpitations and Denies dyspnea Resp Denies chest congestion, Denies cough and Denies dyspnea GI Denies abdominal pain, Denies constipation, Denies dysphagia, Denies heartburn, Denies diarrhea, Denies nausea, Denies odynophagia and Denies vomiting Denies difficulty urinating, Denies dysuria, Denies nocturia and Denies urinary frequency Musc Denies back pain, Denies arthralgias and Denies neck pain Skin/Breast Denies rash Neuro Denies dizziness, Denies headache(s) and Denies paresthesias Endo Denies fatigue and Denies palpitations Physical exam (Primary Care) Vital Signs: Last Vital Signs Pulse 70 02/09/25 16:15 BP 120/84 02/09/25 16:15 Pulse Ox 98 02/09/25 16:15 Oxygen Delivery Method Room Air 02/09/25 16:15 BMI result Body Mass Index 25.3 Tobacco/Smoking Status: Tobacco use Status Tobacco use date assessed 02/09/25 02/09/25 16:26 Patient Tobacco Use Status Former Tobacco user 02/09/25 16:26 e-Cigarette/Vaping Use Never Used 02/09/25 16:26 PHQ-9: PHQ-9 Score PHQ-9: Total score 0 02/09/25 16:55 Depression Screening Interpretation: Negative Thrive Assessment: Date of Thrive Assessment Date Thrive assessed 02/09/25 02/09/25 16:26 Currently or been in a relationship where the following occur: No concerns reported Const General: no acute distress and alert HENMT Ears: TM's normal bilaterally and EAC's normal Throat: Yes posterior oropharynx normal and Yes tonsils normal (no TP congestion) Neck Neck: Yes supple and No lymphadenopathy Thyroid: Thyroid normal Resp Auscultation: clear to auscultation bilaterally, no rales and no wheezes Cardio Rate: regular rate Rhythm: regular rhythm Heart sounds: no murmurs GI Palpation (GI): Soft to palpation and nontender Auscultation: normal bowel sounds General: Yes no CVA tenderness Back/Spine/Pelvis Back: no CVA tenderness Thoracic/Lumbar Spine: No lumbar spinal tenderness Skin Rashes: no rashes Extrem General: Yes no clubbing, cyanosis or edema Results Reviewed Results Reviewed: Laboratory Tests 09/01/24 02/08/25 02/08/25 12:42 08:16 08:21 WBC 5.1 6.3 Hgb 14.4 14.4 Hct 43.5 42.9 Plt Count 197 204 Sodium 137 140 Potassium 3.8 4.0 Creatinine 1.05 1.02 Estimated GFR > 60 > 60 Random Glucose 115 Fasting Glucose 98 Hemoglobin A1c % 5.5 Calcium 9.4 9.2 AST 19 28 ALT 27 26 Triglycerides 240 H Cholesterol 156 LDL Cholesterol, Calc 76 HDL Cholesterol 32 L 25-OH Vitamin D Total 46.6 Ur Specific [place] 1.020 Urine Protein Negative Urine Glucose (UA) Negative Urine Blood Negative Urine Nitrite Negative Ur Leukocyte Esterase Negative Coding Level of Care Code Est Pt Level 4 (36123) Diagnoses Pure hypercholesterolemia E78.00 Type 2 diabetes mellitus without complication, without long-term current use of insulin E11.9 Diabetes mellitus complication status: without complication Diabetes mellitus salvage determiner insulin use: without custodial use Diabetes mellitus type: type 2 Elevated blood pressure reading R03.0 Gastritis without bleeding, unspecified chronicity, unspecified gastritis type K29.70 Chronicity: unspecified Gastritis bleeding: without bleeding Gastritis type: unspecified gastritis Recurrent right knee instability M23.51 Allergic rhinitis due to other allergic trigger, unspecified seasonality J30.89 Allergic rhinitis seasonality: unspecified Allergic rhinitis trigger: other Vitamin D deficiency E55.9 Primary insomnia F51.01 Insomnia type: primary Smoker F17.200 Overweight (BMI 25.0-29.9) E66.3 Additional Codes PHQ-9 - 64690 - PHQ-9 Billing: Yes ([id number]) Assessment & Plan Assessment & Plan (1) Pure hypercholesterolemia: Code(s): E78.00 - Pure hypercholesterolemia, unspecified Category: Medical Plan: Results of his labs done yesterday reviewed and discussed with patient Reinforced low cholesterol diet Continue Pravastatin 40 mg QD and Ezetimibe 10 mg QD Will recheck his labs and fasting lipids in 4 months for follow-up (2) Diabetes mellitus: Code(s): E11.9 - Type 2 diabetes mellitus without complications Category: Medical Qualifiers: Diabetes mellitus complication status: without complication Diabetes mellitus salvage determiner insulin use: without custodial use Diabetes mellitus type: type 2 Qualified Code(s): E11.9 - Type 2 diabetes mellitus without complications Plan: His HgbA1c was at 5.5% on his labs done yesterday (in-office HgbA1c was at 5.8% a few months ago) - goal is ideally <6.5% We have previously recommended that he start taking some Rx to help control his blood sugar and to slow down the progression of his diabetes but patient declined and wanted to continue working on diet modification alone Reinforced diabetic diet Will recheck his HgbA1c and FBS in 4 months for follow up (3) Elevated blood pressure reading: Code(s): R03.0 - Elevated blood-pressure reading, without diagnosis of hypertension Category: Medical Plan: His BP today again appears much better controlled Reinforced low sodium diet Patient is reminded to continue checking and monitoring his blood pressure regularly (4) Gastritis: Comment: S/P 14-days Tx with Bismuth, Flagyl and Doxycycline for H. pylori Code(s): K29.70 - Gastritis, unspecified, without bleeding Category: Medical Qualifiers: Chronicity: unspecified Gastritis bleeding: without bleeding Gastritis type: unspecified gastritis Qualified Code(s): K29.70 - Gastritis, unspecified, without bleeding Plan: S/P Tx for H. pylori x 14 days in 2021 - states that his GI symptoms have improved a lot with treatment Dietary restrictions reinforced Continue Omeprazole 40 mg QD Follow up with GI as scheduled (5) Recurrent right knee instability: Code(s): M23.51 - Chronic instability of knee, right knee Category: Medical Plan: Have advised patient that his right knee x-rays done a couple of years ago revealed (+) degenerative changes with irregularity, most notable along the posterior aspect of the patella He states that his right knee has been feeling better lately and does not feel like before when it was ready to give out on him at any time Have advised him to continue with knee exercises regularly to help strengthen the muscles that support his knee, which should result in less knee pain and injury (6) Allergic rhinitis: Code(s): J30.9 - Allergic rhinitis, unspecified Category: Medical Qualifiers: Allergic rhinitis seasonality: unspecified Allergic rhinitis trigger: other Qualified Code(s): J30.89 - Other allergic rhinitis Plan: Continue Loratadine 10 mg QD PRN (7) Vitamin D deficiency: Code(s): E55.9 - Vitamin D deficiency, unspecified Category: Medical Plan: Continue Vitamin D3 2000 units QD (8) Insomnia: Code(s): G47.00 - Insomnia, unspecified Category: Medical Qualifiers: Insomnia type: primary Qualified Code(s): F51.01 - Primary insomnia Plan: Sleep hygiene reinforced (9) Smoker: Code(s): F17.200 - Nicotine dependence, unspecified, uncomplicated Category: Social Hx Plan: Patient is counseled again on complete smoking cessation (10) Overweight (BMI 25.0-29.9): Code(s): E66.3 - Overweight Category: Medical Plan: Reinforced diet/exercise as tolerated/lose weight Plan To return in 4 months for his next annual physical examination Orders: Orders Complete Blood Count Auto Diff 4 Months D64.9 - Anemia, unspecified, Z00.00 - Encounter for general adult medical examination without abnormal findings TSH reflex Free T4 4 Months E78.00 - Pure hypercholesterolemia, unspecified, Z00.00 - Encounter for general adult medical examination without abnormal findings Vitamin D 25-OH Total 4 Months E55.9 - Vitamin D deficiency, unspecified, Z00.00 - Encounter for general adult medical examination without abnormal findings Prostate Specific Antigen Scr 4 Months Z00.00 - Encounter for general adult medical examination without abnormal findings Hemoglobin A1c 4 Months E11.9 - Type 2 diabetes mellitus without complications, Z00.00 - Encounter for general adult medical examination without abnormal findings Lipid Panel 4 Months E78.00 - Pure hypercholesterolemia, unspecified, Z00.00 - Encounter for general adult medical examination without abnormal findings Comprehensive [place]. Panel Fast 4 Months E78.00 - Pure hypercholesterolemia, unspecified, Z00.00 - Encounter for general adult medical examination without abnormal findings UA CC w/rflx Micro + Cult 4 Months R30.0 - Dysuria, Z00.00 - Encounter for general adult medical examination without abnormal findings Medications: Refilled ezetimibe 10 mg PO DAILY 90 tabs 3RF 90 days cholecalciferol (vitamin D3) 50 mcg PO DAILY 90 caps 3RF 90 days E55.9 - Vitamin D deficiency, unspecified pravastatin 40 mg PO DAILY 90 tabs 3RF 90 days omeprazole 40 mg PO DAILY 90 caps 3RF 90 days
== END 2025-02-09 17:06 | disposition home or self-care (01) ==
LOC: HO.HMCH 16:15
PROVIDERS: PCP Internal Medicine; Visit Provider Internal Medicine
DX: E78.00 Pure hypercholesterolemia, unspecified (principal); E11.9 Type 2 diabetes mellitus without complications; R03.0 Elevated blood-pressure reading, without diagnosis of hypertension; K29.70 Gastritis, unspecified, without bleeding; M23.51 Chronic instability of knee, right knee; J30.89 Other allergic rhinitis; E55.9 Vitamin D deficiency, unspecified; F51.01 Primary insomnia; F17.200 Nicotine dependence, unspecified, uncomplicated; E66.3 Overweight

== ENCOUNTER → 2025-02-09 16:14 | Outpatient (BNVA) | payer OTHER, SELFPAY | PROVIDERS: PCP Internal Medicine; Visit Provider Internal Medicine | DX: E11.9 Type 2 diabetes mellitus without complications (principal); E78.00 Pure hypercholesterolemia, unspecified; R03.0 Elevated blood-pressure reading, without diagnosis of hypertension; K29.70 Gastritis, unspecified, without bleeding; M23.51 Chronic instability of knee, right knee; J30.89 Other allergic rhinitis; E55.9 Vitamin D deficiency, unspecified; F51.01 Primary insomnia; F17.210 Nicotine dependence, cigarettes, uncomplicated; E66.3 Overweight; Z68.25 Body mass index [BMI] 25.0-25.9, adult | CPT/HCPCS: 96127; 99212 ==

== ENCOUNTER 2025-03-31 09:07 | Emergency (ER) | payer OTHER, SELFPAY ==
--- NOTE | ~2025-03-31 | CT_ITS ---
EXAMINATION: CT HEAD WITH CONTRAST CLINICAL INFORMATION: Occipital tenderness at a lump, R/O abscess COMPARISON: November 23, 2021 TECHNIQUE: Contiguous axial imaging was performed from the skull base to vertex following the administration of 85 mL of Omnipaque [address] examination was performed using dose optimization techniques as appropriate, variously including the following: *Automated exposure control *Adjustment of mA and/or kV according to patient size (this includes techniques or standardized protocols for targeted exams where dose is matched to indication/reason for exam; i.e. extremities or head) *Use of iterative reconstruction technique DLP: 784 mGY*cm FINDINGS: There is mild fullness in the left occipital occipitofrontalis muscle measuring 5 mm thick, 17 mm superior to inferior, and 28 mm anterior-posterior. It demonstrates trace (2 mm thick) central low attenuation and peripheral enhancement. There is no acute ischemic change. There is no intracranial hemorrhage. There is no mass-effect or midline shift. Basal cisterns and ventricles are within normal limits for age/cerebral volume. Orbits are symmetrical and unremarkable. Mucous retention cysts present in the floor the left maxillary sinus. Sinuses are otherwise clear. There are no bony abnormalities. CT/CT head/brain w IV con IMPRESSION: Left occipital scalp collection within the occipitofrontalis muscle with trace central fluid and peripheral enhancement could represent pus, blood, or sterile fluid/collection. No acute intracranial abnormality Electronically signed by: Helder Fowler MD 03/31/2025 12:09 PM EDT
[2025-03-31 09:15] VITALS: BP 137/75; PULSE 85; RESP 16; TEMP 35.9; O2SAT 98; BMI 24.9
--- NOTE | 2025-03-31 09:52 | ED.GENADULT ---
HPI - General Adult General Chief complaint: General Medical Stated complaint: bumps on head Time Seen by Provider: 03/31/25 09:36 Source: patient Mode of arrival: ambulatory Limitations: no limitations History of Present Illness ED Provider: DR. Rivera HPI narrative: 54-year-old male came in for evaluation of 1 bump in the back of his head started as 3 small different bump in the occipital area now becoming 1 larger bump, which is uncomfortable since last night, patient reports no trauma, no fever, no chills, no drainage. Never had those bumps in the past. Related Data Home Medications ?Medication ?Instructions ?Recorded ?Confirmed aspirin 81 mg tablet 81 mg PO DAILY 05/29/20 02/09/25 multivitamin-ferrous 1 tab PO DAILY 10/18/20 02/09/25 fumarate-folic acid 18 mg-400 mcg tablet (Centrum) Previous Rx's ?Medication ?Instructions ?Recorded acetaminophen 500 mg tablet 1,000 mg (2 x 500 mg) PO Q6H PRN 09/01/24 (Tylenol Extra Strength) pain #30 tabs ibuprofen 600 mg tablet 600 mg PO Q6H PRN pain #30 tabs 09/01/24 cholecalciferol (vitamin D3) 50 50 mcg PO DAILY 90 days #90 caps 02/09/25 mcg (2,000 unit) capsule ezetimibe 10 mg tablet 10 mg PO DAILY 90 days #90 tabs 02/09/25 omeprazole 40 mg capsule,delayed 40 mg PO DAILY 90 days #90 caps 02/09/25 release pravastatin 40 mg tablet 40 mg PO DAILY 90 days #90 tabs 02/09/25 doxycycline hyclate 100 mg tablet 100 mg PO BID #14 tabs 03/31/25 Allergies Allergy/AdvReac Type Severity Reaction Status Date / Time rosuvastatin (Crestor) AdvReac Intermediate myalgias Verified 03/31/25 09:15 Review of Systems Review of Systems: All other systems are reviewed and are negative Constitutional: Reports as per HPI and Reports no additional constitutional complaints Eyes: Reports as per HPI and Reports no additional eye complaints Reports system reviewed and no additional complaints, except as documented Cardiovascular: Reports as per HPI and Reports no additional cardiovascular complaints Respiratory: Reports as per HPI and Reports no additional respiratory complaints Gastrointestinal: Reports as per HPI and Reports no additional gastrointestinal complaints Genitourinary: Reports no additional female genitourinary complaints Musculoskeletal: Reports no additional musculoskeletal complaints Skin/Breast: Reports system reviewed and no additional complaints, except as docu Psychiatric: Reports no additional psychiatric complaints Endocrine: Reports no additional endocrine complaints Hematologic/Lymphatic: Reports no additional hematologic/lymphatic complaints Allergic/Immunologic: Reports no additional allergic/immunologic complaints Reports system reviewed and no additional complaints, except as documented and Reports Abnormal speech present [facility], [facility] Past Medical History Medical History Diabetes mellitus Vitamin D deficiency Gastritis Tubular adenoma Pain in both feet Insomnia Overweight (BMI 25.0-29.9) Smoker Elevated blood pressure reading Allergic rhinitis Pure hypercholesterolemia Surgical History History of colonoscopy (~10/24/20) Hx of wisdom tooth extraction History of inguinal hernia repair History of vasectomy Family History Family History Father No problems noted. Mother No problems noted. Paternal Uncle History of stomach cancer Maternal Aunt Hx of breast cancer Son No problems noted. Social History Social History Household Members: Spouse and Children Housing: House Alcohol intake: current Alcohol intake frequency: a few times a month Alcohol type: hard liquor Patient Tobacco Use Status: Former Tobacco user Cigarettes Per Day: 10 Years Smoked: 30 Smoked in Last 30 Days: No e-Cigarette/Vaping Use: Never Used Second Hand Smoke Exposure: Yes Use of substances other than those prescribed or required for medical reasons: No Advance Directives: No Advance Directives Information Provided: Yes Do you have a plan to hurt others: No Plan service: No Current occupational status: employed Current occupation: [employer]UM [employer]/ right hand dominant Cognitive needs: No Hearing needs: No Vision needs: No Physical Exam ED Vital Signs: Vital Signs - 24 hr 03/31/25 09:15 Temperature 96.7 F L Pulse Rate 85 Respiratory Rate 16 Blood Pressure 137/75 Pulse Oximetry 98 Oxygen Delivery Method Room Air BMI result Body Mass Index 24.9 Vital signs have been reviewed and appear to be correct. Blood pressure elevated. Heart rate normal. Respiratory rate normal. Temperature normal. Oxygen saturation normal. Appearance: Alert. Oriented X3. No acute distress. Head: 6 x 5 cm area of raised bump on the occipital area, mildly tender, mildly erythematous, no fluctuation, no drainage. Eyes: PERRLA. EOMI. Conjunctiva and sclera normal. Eyelids normal. ENT: TM's Normal. Pharynx normal. Uvula midline. Moist mucous membranes. No trismus noted. No drooling noted. No muffled voice noted. Neck: Normal inspection. Neck supple. FROM. No adenopathy. Thyroid Normal. No meningeal signs. No neck mass noted. CVS: Normal heart rate and rhythm. Heart sound normal. No murmurs noted. Pulses normal throughout. Respiratory: No respiratory distress. Painless inspiration. Breath sounds normal. No wheezes/rales/rhonchi noted. Chest nontender. No accessory muscle usage noted or decreased air movement noted. Abdomen: Soft and nontender. Bowel sounds normal in all 4 quadrants. No distention noted. No organomegaly noted. No visible injury noted. Back: No CVA tenderness. Full range of motion noted. Skin: Skin warm and dry. Normal skin color. Normal skin turgor. No rashes/lesions/lacerations noted. Extremities: No lower extremity edema. Extremities exhibit normal range of motion. Extremities nontender. Neuro: Oriented X 3. Cranial nerve exam: II-XII are grossly intact No motor deficit. No sensory deficit. Reflexes normal. Course Reevaluation(s) Reevaluation #1: CT abdomen pelvis is concern of small collection of fluid unlikely to be infectious or pus in absence of cardinal findings of cellulitis and normal WBCs. Will start the patient on doxycycline, apply heating pads and follow-up with his PCP. Time: 12:32 Medications Administered Discontinued Medications Generic Name Dose Route Start Last Admin Trade Name Freq PRN Reason Stop Dose Admin Iohexol 100 ml 03/31/25 11:46 03/31/25 11:47 Iohexol 350 Mg/Ml 100 Ml Infus..Btl IV 03/31/25 11:47 85 ml ONCE ONE Administration Medical Decision Making Differential Diagnosis Differential Diagnoses: The differential diagnosis associated with the presentation includes (Occipital abscess, epidermoid (sebaceous cyst), lipoma, lymphadenopathy less likely.) Admission/Observation Consideration of admission/observation: Escalation of care including admission/observation considered Lab Data MDM Lab Attestation statement: I reviewed the patient's lab results. 03/31/25 10:58 03/31/25 10:57 Labs: Lab Results 03/31/25 03/31/25 Range/Units 10:57 10:58 WBC 6.8 (4.8-10.8) X10*3/uL RBC 5.43 (4.60-5.80) X10*6/uL Hgb 14.6 (14.0-18.0) g/dl Hct 43.9 (42.0-52.0) % MCV 80.8 (80.0-98.0) fL MCH 26.9 L (27.0-33.0) pg MCHC 33.3 (31.0-36.0) g/dl RDW 14.4 (11.0-16.0) % Plt Count 194 (160-400) X10*3/uL MPV 10.0 (9.4-12.4) fL Immature Gran % (Auto) 0.3 (0.0-0.4) % Neut % (Auto) 58.2 (45-73) % Lymph % (Auto) 31.0 (20-40) % [place] % (Auto) 8.6 (2-11) % Eos % (Auto) 1.5 (0-4) % Baso % (Auto) 0.4 (0-2) % Lymph # (Auto) 2.1 (1.2-4.9) X10*3/uL [place] # (Auto) 0.6 (0.1-1.2) X10*3/uL Eos # (Auto) 0.1 (0.0-0.4) X10*3/uL Baso # (Auto) 0.0 (0.0-0.2) X10*3/uL Abs Immat Gran (auto) 0.02 (0.00-0.03) X10*3/uL Absolute Neuts (auto) 4.0 (2.0-8.3) x10*3/uL Absolute Nucleated RBC 0.000 (0.0-0.012) X10*3/uL Nucleated RBC % (auto) 0.0 (0.0-0.2) /100WBC ESR 5 (0-15) MM/HR Sodium 141 (135-145) mmol/L Potassium 4.5 (3.3-5.1) mmol/L Chloride 108 (96-108) mmol/L Carbon Dioxide 27 (22-29) mmol/L Anion Gap 11 L (12-20) BUN 16 (9-16) mg/dL Creatinine 0.91 (0.5-1.4) mg/dL Estim Creat Clear Calc 97.6 Estimated GFR > 60 Random Glucose 89 (60-115) mg/dL Calcium 9.3 (8.4-10.2) mg/dL C-Reactive Protein 0.10 (< or = 0.50) mg/dL Independent Interpretation I performed an independent interpretation of an: CT Scan (Head with IV contrast,Left occipital scalp collection within the occipitofrontalis muscle with trace central fluid and peripheral enhancement could represent pus, blood, or sterile fluid/collection. ) Radiology Impression Discussion of test interpretation with radiology: I have reviewed the radiologist's reading. Discharge Plan Discharge Clinical Impression: Cellulitis of occipital region of scalp Patient Disposition: Home, Self-Care Instructions: Cellulitis (ED) Prescriptions: New doxycycline hyclate 100 mg tablet 100 mg PO BID Qty: 14 0RF No Action aspirin 81 mg Tablet 81 mg PO DAILY Centrum 18-400 mg-mcg Tablet 1 tab PO DAILY ibuprofen 600 mg tablet 600 mg PO Q6H PRN (Reason: pain) Qty: 30 0RF acetaminophen [Tylenol Extra Strength] 500 mg tablet 1,000 mg PO Q6H PRN (Reason: pain) Qty: 30 0RF ezetimibe 10 mg tablet 10 mg PO DAILY 90 Days Qty: 90 3RF pravastatin 40 mg tablet 40 mg PO DAILY 90 Days Qty: 90 3RF omeprazole 40 mg capsule,delayed release(DR/EC) 40 mg PO DAILY 90 Days Qty: 90 3RF cholecalciferol (vitamin D3) 50 mcg (2,000 unit) capsule 50 mcg PO DAILY 90 Days Qty: 90 3RF Referrals: Harinder Fuller MD [Primary Care Provider, Internal Medicine] Print Language: [place]
[2025-03-31 11:03] LABS: MANUAL DIFF FLAG NO
[2025-03-31 11:06] LABS: Hematocrit 43.9 % (42.0-52.0); Hemoglobin 14.6 g/dl (14.0-18.0); Imm Gran Abs Auto 0.02 X10*3/uL (0.00-0.03); Imm Gran Pct Auto 0.3 % (0.0-0.4); Lymphocytes Absolute Auto 2.1 X10*3/uL (1.2-4.9); Mean Corpuscular HGB Conc 33.3 g/dl (31.0-36.0); Mean Corpuscular Hemoglobin 26.9 pg (27.0-33.0); Mean Corpuscular Volume 80.8 fL (80.0-98.0); NRBC Abs Auto 0.000 X10*3/uL (0.0-0.012); NRBC Pct Auto 0.0 /100WBC (0.0-0.2); Platelet Count 194 X10*3/uL (160-400); Red Blood Count 5.43 X10*6/uL (4.60-5.80); White Blood Count 6.8 X10*3/uL (4.8-10.8)
[2025-03-31 11:21] LABS: Anion Gap 11 (12-20); Blood Urea Nitrogen 16 mg/dL (9-16); Calcium 9.3 mg/dL (8.4-10.2); Carbon Dioxide 27 mmol/L (22-29); Chloride 108 mmol/L (96-108); Creatinine Clr Calc Pharmacy 97.6; Estimated Glomerular Filt Rate > 60; Potassium 4.5 mmol/L (3.3-5.1); Sodium 141 mmol/L (135-145)
[2025-03-31] MEDS: iohexoL 350 MG/ML 100 ML INFUS..BTL IV (11:47)
[2025-03-31 12:53] VITALS: BP 137/75; PULSE 85; RESP 16; TEMP 35.9; O2SAT 98
== END 2025-03-31 12:54 | disposition home or self-care (01) ==
PROVIDERS: Emergency Provider Emergency Medicine; PCP Internal Medicine
DX: L03.811 Cellulitis of head [any part, except face] (principal); E11.9 Type 2 diabetes mellitus without complications; Z87.891 Personal history of nicotine dependence
CPT/HCPCS: 36415; 70460; 80048; 85025; 85652; 86140; 99283; 99284; Q9967

== ENCOUNTER → 2025-03-31 09:51 | Outpatient (BNV) | payer OTHER, SELFPAY | PROVIDERS: Emergency Provider Emergency Medicine; PCP Internal Medicine; Visit Provider Radiology Diagnostic Radiology | DX: R22.0 Localized swelling, mass and lump, head (principal) | CPT/HCPCS: 70460 ==

== ENCOUNTER 2025-04-03 23:05 | Emergency (ER) | payer OTHER, SELFPAY ==
[2025-04-03 23:09] VITALS: BP 138/69; PULSE 77; RESP 16; TEMP 36.8; O2SAT 98; BMI 23.4
--- NOTE | 2025-04-04 00:57 | ED.GENADULT ---
HPI - General Adult General Chief complaint: Skin/Abscess/Foreign Body Stated complaint: allergic reaction follow up Time Seen by Provider: 04/04/25 00:49 Source: patient Limitations: no limitations History of Present Illness ED Provider: Nani Huddleston PA-C HPI narrative: 54-year-old male with a history of diabetes, hyperlipidemia, GERD with recent treatment for scalp cellulitis/folliculitis, presents with worsening pruritus of the scalp. Patient states he has been taking the doxycycline as directed. He states he has periods where he feels as if the ?rash? is resolving, but it then returns. It sporadically you reps in different regions over the scalp in his intensely itchy when it presents. Patient states prior to the onset of his initial symptoms, he had a hair cut by a different wright. He is very sensitive to hair dyes, he thinks the clipper may have been contaminated. Related Data Home Medications ?Medication ?Instructions ?Recorded ?Confirmed aspirin 81 mg tablet 81 mg PO DAILY 05/29/20 02/09/25 multivitamin-ferrous 1 tab PO DAILY 10/18/20 02/09/25 fumarate-folic acid 18 mg-400 mcg tablet (Centrum) Previous Rx's ?Medication ?Instructions ?Recorded acetaminophen 500 mg tablet 1,000 mg (2 x 500 mg) PO Q6H PRN 09/01/24 (Tylenol Extra Strength) pain #30 tabs ibuprofen 600 mg tablet 600 mg PO Q6H PRN pain #30 tabs 09/01/24 cholecalciferol (vitamin D3) 50 50 mcg PO DAILY 90 days #90 caps 02/09/25 mcg (2,000 unit) capsule ezetimibe 10 mg tablet 10 mg PO DAILY 90 days #90 tabs 02/09/25 omeprazole 40 mg capsule,delayed 40 mg PO DAILY 90 days #90 caps 02/09/25 release pravastatin 40 mg tablet 40 mg PO DAILY 90 days #90 tabs 02/09/25 doxycycline hyclate 100 mg tablet 100 mg PO BID #14 tabs 03/31/25 prednisone 10 mg tablets in a dose 10 mg PO DAILY #48 ea 04/04/25 pack Allergies Allergy/AdvReac Type Severity Reaction Status Date / Time rosuvastatin (Crestor) AdvReac Intermediate myalgias Verified 04/03/25 23:11 Review of Systems Review of Systems: Yes all other systems are reviewed and are negative Constitutional: Constitutional: Denies fatigue and Denies fever(s) Integumentary/Breasts: Skin/Breast: Denies erythema, Reports rash, Denies skin swelling and Denies sores Endocrine: Endocrine: Denies fatigue PMFSH Past Medical History Attestation statement: The following information was validated with the patient. Medical History Diabetes mellitus Vitamin D deficiency Gastritis Tubular adenoma Pain in both feet Insomnia Overweight (BMI 25.0-29.9) Smoker Elevated blood pressure reading Allergic rhinitis Pure hypercholesterolemia Surgical History History of colonoscopy (~10/24/20) Hx of wisdom tooth extraction History of inguinal hernia repair History of vasectomy Family History Family History Father No problems noted. Mother No problems noted. Paternal Uncle History of stomach cancer Maternal Aunt Hx of breast cancer Son No problems noted. 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 Cognitive needs: No Hearing needs: No Vision needs: No Physical Exam ED Vital Signs: Vital Signs - 24 hr 04/03/25 23:09 Temperature 98.3 F Pulse Rate 77 Respiratory Rate 16 Blood Pressure 138/69 Pulse Oximetry 98 Oxygen Delivery Method Room Air BMI result Body Mass Index 23.4 Const Other: Alert well-appearing, I can detect fine urticaria over posterior scalp in the region that was shaved, no evidence of folliculitis no erythema Orientation/consciousness: patient oriented x3 Resp Effort & Inspection: normal respiratory effort Cardio Other: Normal peripheral perfusion Skin Other: Warm dry no diffuse rash Neuro General: patient oriented x3, gait normal, no focal motor deficits and CN's II-XI intact bilaterally Psych Other: Cooperative Medical Decision Making Medical Decision Making MDM Narrative: 54-year-old male with a history of diabetes, hyperlipidemia, GERD with recent treatment for scalp cellulitis/folliculitis, presents with worsening pruritus of the scalp. Patient states he has been taking the doxycycline as directed. He states he has periods where he feels as if the ?rash? is resolving, but it then returns. It sporadically you reps in different regions over the scalp in his intensely itchy when it presents. Patient states prior to the onset of his initial symptoms, he had a hair cut by a different wright. He is very sensitive to hair dyes, he thinks the clipper may have been contaminated. Problem: Diabetes History: Per patient I have considered the following differential diagnoses: Allergic reaction, urticaria, cellulitis, purulent cellulitis, folliculitis, dandruff Plan: In actuality the patient is having intermittent urticaria, we will send with a steroid taper, in the use of an antihistamine. Discharge Plan Discharge Clinical Impression: Hives Patient Disposition: Home, Self-Care Instructions: Urticaria (ED) Additional Instructions: It appears you are developing hives, in response to whatever contaminant you came in contact with at your wright. See home care instructions. Take the steroid taper as directed, use it per package instructions. Use [id number] Zyrtec daily, you can increase the dose every 6 hours as needed up to 40 mg, as needed for itching. Follow up with your primary care as needed. The steroid will artificially elevate your blood sugar, be mindful of this, be sure to take your anti glycemic medications as directed and to eat a very strict diabetic diet while taking the steroid taper. Prescriptions: New prednisone 10 mg tablets,dose pack 10 mg PO DAILY Qty: 48 0RF Rx Instructions: Take per package instructions No Action aspirin 81 mg Tablet 81 mg PO DAILY Centrum 18-400 mg-mcg Tablet 1 tab PO DAILY ibuprofen 600 mg tablet 600 mg PO Q6H PRN (Reason: pain) Qty: 30 0RF acetaminophen [Tylenol Extra Strength] 500 mg tablet 1,000 mg PO Q6H PRN (Reason: pain) Qty: 30 0RF doxycycline hyclate 100 mg tablet 100 mg PO BID Qty: 14 0RF ezetimibe 10 mg tablet 10 mg PO DAILY 90 Days Qty: 90 3RF pravastatin 40 mg tablet 40 mg PO DAILY 90 Days Qty: 90 3RF omeprazole 40 mg capsule,delayed release(DR/EC) 40 mg PO DAILY 90 Days Qty: 90 3RF cholecalciferol (vitamin D3) 50 mcg (2,000 unit) capsule 50 mcg PO DAILY 90 Days Qty: 90 3RF Print Language: Citizen Of [place]
[2025-04-04 01:18] VITALS: BP 138/78; PULSE 76; RESP 18; TEMP 36.7; O2SAT 99
== END 2025-04-04 01:20 | disposition home or self-care (01) ==
PROVIDERS: Emergency Provider Emergency Medicine; PCP Internal Medicine
DX: L50.9 Urticaria, unspecified (principal)
CPT/HCPCS: 99283; 99284

== ENCOUNTER 2025-04-08 07:29 | Outpatient (AMB) | payer OTHER, SELFPAY ==
[2025-04-08 07:33] VITALS: BP 136/70; PULSE 88; O2SAT 98; BMI 24.2
--- NOTE | 2025-04-08 07:33 | MHC.PC.OV ---
Vital Signs 04/08/25 07:33 Height 5 ft 11.5 in Weight 176 lb BMI 24.2 BP 136/70 Blood Pressure Location Lt brachial Position Sitting Pulse 88 Pulse Source Pulse Oximeter Pulse Oximetry (%) 98 Oxygen Delivery Method Room Air [place] [facility] [place] Allergies rosuvastatin (Crestor) Adverse Reaction (Intermediate, Verified 04/08/25 07:34) myalgias Tobacco use date assessed: 02/09/25 Dental Screening Dental Screen Date: 02/09/25 HPI HPI Comments History of Present Illness Details 54 y/o Male patient who presents to the clinic today for EDF. He was admitted twice in 03/2025 at [facility] [place] on 03/31 & 04/04 for an evaluation and treatment of Urticaria. Pt reports Hives covering his scalp, Face and Neck. He was first treated for Folliculitis with Doxy but symptoms never resolved. He was given Prednisone Taper with some relief. Currently has few Hives on Face, but denies SOB, CP, Wheezing or Facial edema. In the Past (2018) he was evaluated by an Multiple Punch Press Operator and told he had allergies to Pets and Mold. Patient has been eliminating foods in his Diet to see what he might be allergic to - so far he thinks Nuts are problem. [facility] Medical History Diabetes mellitus Vitamin D deficiency Gastritis Tubular adenoma Pain in both feet Insomnia Overweight (BMI 25.0-29.9) Smoker Elevated blood pressure reading Allergic rhinitis Pure hypercholesterolemia Surgical History History of colonoscopy (~10/24/20) Hx of wisdom tooth extraction History of inguinal hernia repair History of vasectomy Family History Father No problems noted. Mother No problems noted. Paternal Uncle History of stomach cancer Maternal Aunt Hx of breast cancer Son No problems noted. 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 1. Little interest or pleasure in doing things: not at all 2. Feeling down, depressed, or hopeless: not at all 3. Trouble falling or staying asleep, or sleeping too much: not at all 4. Feeling tired or having little energy: not at all 5. Poor appetite or overeating: not at all 6. Feeling bad about yourself - or that you are a failure or have let yourself or your family down: not at all 7. Trouble concentrating on things, such as reading the newspaper or watching television: not at all 8. Moving or speaking so slowly that other people could have noticed. Or the opposite - being so fidgety or restless that you have been moving around a lot more than usual: not at all 9. Thoughts that you would be better off or of hurting yourself in some way: not at all Total score: 0 Depression Screening Interpretation: Negative Depression Screening Done: Yes Source: Developed by Drs. Andrés Narayan, Kalyan Prather and colleagues, with an educational laz from [email or web address]. Thrive Questionnaire Date Thrive assessed: 02/09/25 AUDIT C Alcohol Use Questionnaire (AUDIT-C) 1. How often do you have a drink containing alcohol?: 2-4 times a month 2. How many drinks containing alcohol do you have on a typical day when you are drinking?: 5 or 6 3. How often do you have six or more drinks on one occasion?: Monthly Total Score: 6 EMEKA-7 AMB Questionnaire EMEKA-7 Date EMEKA - 7 assessed: 02/09/25 Source: Developed by Drs. Andrés Narayan, Kalyan Prather and colleagues, with an educational laz from [email or web address]. Review of Systems Const All systems reviewed & are unremarkable except as noted in HPI and below Physical exam (Primary Care) Vital Signs: Last Vital Signs Pulse 88 04/08/25 07:33 BP 136/70 04/08/25 07:33 Pulse Ox 98 04/08/25 07:33 Oxygen Delivery Method Room Air 04/08/25 07:33 BMI result Body Mass Index 24.2 Tobacco/Smoking Status: Tobacco use Status Tobacco use date assessed 02/09/25 04/08/25 07:38 Patient Tobacco Use Status Former Tobacco user 04/08/25 07:38 Tobacco use type Cigarette 04/08/25 07:38 e-Cigarette/Vaping Use Never Used 04/08/25 07:38 PHQ-9: PHQ-9 Score PHQ-9: Total score 0 04/08/25 07:38 Depression Screening Interpretation: Negative Thrive Assessment: Date of Thrive Assessment Date Thrive assessed 02/09/25 04/08/25 07:38 Const General: no acute distress Nutritional Appearance: well nourished Orientation/consciousness: patient oriented x3 HENMT Other: Currently no Hives on Face or Scalp. Mouth: moist mucous membranes Resp Effort & Inspection: normal respiratory effort Auscultation: clear to auscultation bilaterally Cardio Heart sounds: S1 normal heart sound present and S2 normal heart sound present Neuro General: patient oriented x3, gait normal and moves all extremities Coding Level of Care Code Est Pt Level 4 (28039) Diagnoses Allergic rhinitis due to other allergic trigger, unspecified seasonality J30.89 Allergic rhinitis trigger: other Allergic rhinitis seasonality: unspecified Time Spent (min) 20 Assessment & Plan Assessment & Plan (1) Allergic rhinitis: Code(s): J30.9 - Allergic rhinitis, unspecified Category: Medical Qualifiers: Allergic rhinitis trigger: other Allergic rhinitis seasonality: unspecified Qualified Code(s): J30.89 - Other allergic rhinitis Plan: Stable Zyrtec BID in the first 7 Days. Then continue once daily Placed referral to Multiple Punch Press Operator. Continue eliminatig foods that trigger Hives. Orders: Referrals Allergy & Immunology Referral J30.89 - Other allergic rhinitis Medications: New cetirizine (Zyrtec) 10 mg PO DAILY 90 tabs 3RF J30.89 - Other allergic rhinitis
== END 2025-04-08 07:57 | disposition home or self-care (01) ==
LOC: HO.HMCH 07:29
PROVIDERS: PCP Internal Medicine; Visit Provider Nurse Practitioner Family
DX: J30.89 Other allergic rhinitis (principal)

== ENCOUNTER → 2025-04-08 07:29 | Outpatient (BNVA) | payer OTHER, SELFPAY | PROVIDERS: PCP Internal Medicine; Visit Provider Nurse Practitioner Family | DX: J30.89 Other allergic rhinitis (principal) | CPT/HCPCS: 99212 ==

== ENCOUNTER 2025-04-09 09:49 | Emergency (ER) | payer OTHER, SELFPAY ==
[2025-04-09 09:52] VITALS: BP 152/74; PULSE 76; RESP 16; TEMP 36.6; O2SAT 100; BMI 27.1
[2025-04-09 10:00] VITALS: BP 142/88; PULSE 75; RESP 16; TEMP 36.8; O2SAT 98
--- NOTE | 2025-04-09 10:03 | PC.NURSE ---
Patient presents to ED c/o right sided facial swelling. Denies pain, SOB, n/v, C/o numbness at site, reddened area noted. Patient also noted itchiness under neck no redness or swelling noted under neck. Patient able to speech in clear full sentences. Patient able to manage secretions. O2 100% RA RR 16 Patient has been seen at [facility] two previous times and was prescribed zyrtec which he has been taking with no effect Provider in to see patient Plan of care on going
--- NOTE | 2025-04-09 10:50 | ED_ITS ---
HPI - Allergic Reaction General Chief complaint: Allergic Reaction Stated complaint: allergic reaction facial and neck swelling Time Seen by Provider: 04/09/25 10:13 Source: patient Mode of arrival: ambulatory Limitations: no limitations History of Present Illness ED Provider: HPI narrative: 54-year-old male with recurrent visits for urticaria mostly on his face, currently it is on his right side of the jaw at some mental area, without airway involvement, without angioedema, he eats lots of nuts and seafood on daily basis. Related Data Home Medications ?Medication ?Instructions ?Recorded ?Confirmed aspirin 81 mg tablet 81 mg PO DAILY 05/29/2010/05 multivitamin-ferrous 1 tab PO DAILY 10/18/2010/05 fumarate-folic acid 18 mg-400 mcg tablet (Centrum) Previous Rx's ?Medication ?Instructions ?Recorded acetaminophen 500 mg tablet 1,000 mg (2 x 500 mg) PO Q 6H PRN 09/01/24 (Tylenol Extra Strength) pain #30 tabs ibuprofen 600 mg tablet 600 mg PO Q6H PRN pain #30 t abs 09/01/24 cholecalciferol (vitamin D3) 50 50 mcg PO DAILY 90 day s #90 caps 02/09/25 mcg (2,000 unit) capsule ezetimibe 10 mg tablet 10 mg PO DAILY 90 days #90 t abs 02/09/25 omeprazole 40 mg capsule,delayed 40 mg PO DAILY 90 day s #90 caps 02/09/25 release pravastatin 40 mg tablet 40 mg PO DAILY 90 days #90 t abs 02/09/25 cetirizine 10 mg tablet (Zyrtec) 10 mg PO DAILY #90 ta bs 04/08/25 epinephrine 0.3 mg/0.3 mL 0.3 mg (0.3 mL) IM Q10M 03/13 injection, auto-injector (EpiPen anaphylaxis #2 ea 2-Gabriel) prednisone 20 mg tablet 40 mg (2 x 20 mg) PO DAILY 5 days 04/09/25 #10 tabs Allergies Allergy/AdvReac Type Severity Reaction Status Date / Time rosuvastatin (Crestor) AdvReac Intermediate myalgias Verified 04/09/25 09:54 Review of Systems Constitutional: Constitutional: Reports as per HPI [facility] Past Medical History Medical History Diabetes mellitus Vitamin D deficiency Gastritis Tubular adenoma Pain in both feet Insomnia Overweight (BMI 25.0-29.9) Smoker Elevated blood pressure reading Allergic rhinitis Pure hypercholesterolemia Surgical History History of colonoscopy (~10/24/20) Hx of wisdom tooth extraction History of inguinal hernia repair History of vasectomy Family History Family History Father No problems noted. Mother No problems noted. Paternal Uncle History of stomach cancer Maternal Aunt Hx of breast cancer Son No problems noted. Social History Social History Household Members: Spouse and Children Housing: House Alcohol intake: current Alcohol intake frequency: holidays/special occasions only Alcohol type: hard liquor Patient Tobacco Use Status: Former Tobacco user Tobacco use type: Cigarette Cigarettes Per Day: 10 Years Smoked: 30 Smoked in Last 30 Days: No e-Cigarette/Vaping Use: Never Used Second Hand Smoke Exposure: Yes Use of substances other than those prescribed or required for medical reasons: No Advance Directives: No Advance Directives Information Provided: No service: No Current occupational status: employed 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 Cognitive needs: No Hearing needs: No Vision needs: No Physical Exam ED Vital Signs: Vital Signs - 24 hr 04/09/25 09:52 04/09/25 10:00 Temperature 97.9 F 98.2 F Pulse Rate 76 75 Respiratory Rate 16 16 Blood Pressure 152/74 H 142/88 H Pulse Oximetry 100 98 Oxygen Delivery Method Room Air Room Air BMI result Body Mass Index 27.1 Const Other: * Gen: ?Overall well-appearing patient * HEENT: Uvula midline, no facial edema, no angioedema * Neck: No subcutaneous emphysema, full range of motion * CV: RRR, no obvious murmurs appreciated * Resp: ?No wheezing rales rhonchi no stridor moving air well * Skin: Urticaria over the right jaw line and submental area * Neuro: ?Alert and oriented x3, moving upper and lower extremities symmetrically, no obvious facial asymmetry noted Medications Administered Discontinued Medications Generic Name Dose Route Start Last Admin Trade Name Freq PRN Reason Stop Dose Admin Dexamethasone 10 mg 04/09/25 10:35 04/09/25 10:42 Dexamethasone 2 Mg Tablet PO 04/09/25 10:36 10 mg ONCE ONE Administration Medical Decision Making Medical Decision Making [facility] Narrative: I evaluated pictures from patient's initial ER visit appeared to me that he did develop urticaria in the occipital area, but hard to say initially was treated and doxycycline, came back and then discharged on steroids, we spoke about cessation of certain foods see my discharge instructions we will restart him on oral steroids and we will also give as needed EpiPen, there was no evidence for angioedema or airway compromise at this time Differential Diagnosis Differential Diagnoses: The differential diagnosis associated with the presentation includes (Angioedema, deep space infection, cellulitis, allergy to lisinopril, seafood nut allergy) Tests considered The following testing was considered but not selected: CT soft tissue neck, blood work Prescription Management I considered prescription management with: Antibiotic Discharge Plan Discharge Clinical Impression: Urticaria Instructions: Urticaria (ED) Additional Instructions: Continue with steroids starting tomorrow, as discussed completely omit see food out of the diet right now and nuts, after about 1-2 weeks of completely resolution introduce 1 thing at a time, EpiPen to be used if you have swelling of the throat, difficulty breathing You may have to follow up with the PCP and referred to an museum informatics specialist to determine what has been causing this issue Again any issues that are concerning to you come back to the ER for re- evaluation Prescriptions: New prednisone 20 mg tablet 40 mg PO DAILY 5 Days Qty: 10 0RF epinephrine [EpiPen 2-Gabriel] 0.3 mg/0.3 mL auto-injector 0.3 mg IM Q10M Qty: 2 0RF Rx Instructions: for 2 doses No Action aspirin 81 mg Tablet 81 mg PO DAILY Centrum 18-400 mg-mcg Tablet 1 tab PO DAILY ibuprofen 600 mg tablet 600 mg PO Q6H PRN (Reason: pain) Qty: 30 0RF acetaminophen [Tylenol Extra Strength] 500 mg tablet 1,000 mg PO Q6H PRN (Reason: pain) Qty: 30 0RF ezetimibe 10 mg tablet 10 mg PO DAILY 90 Days Qty: 90 3RF pravastatin 40 mg tablet 40 mg PO DAILY 90 Days Qty: 90 3RF omeprazole 40 mg capsule,delayed release(DR/EC) 40 mg PO DAILY 90 Days Qty: 90 3RF cholecalciferol (vitamin D3) 50 mcg (2,000 unit) capsule 50 mcg PO DAILY 90 Days Qty: 90 3RF cetirizine [Zyrtec] 10 mg tablet 10 mg PO DAILY Qty: 90 3RF Print Language: [place]
[2025-04-09 12:02] VITALS: BP 142/88; PULSE 75; RESP 16; TEMP 36.8; O2SAT 98
== END 2025-04-09 12:03 | disposition home or self-care (01) ==
PROVIDERS: Emergency Provider Emergency Medicine; PCP Internal Medicine
DX: L50.0 Allergic urticaria (principal); R22.1 Localized swelling, mass and lump, neck; Z87.891 Personal history of nicotine dependence
CPT/HCPCS: 99283; 99284; J8540

== ENCOUNTER 2025-04-11 02:00 | Emergency (ER) | payer OTHER, SELFPAY ==
[2025-04-11 02:08] VITALS: BP 128/65; PULSE 92; RESP 18; TEMP 36.6; O2SAT 96; BMI 25.4
[2025-04-11 03:12] VITALS: BP 122/69; PULSE 82; RESP 18; TEMP 36.6; O2SAT 97
--- NOTE | 2025-04-11 05:42 | ED.SKABFB ---
HPI - Skin/Abscess/Foreign Bdy General Chief complaint: Skin/Abscess/Foreign Body Stated complaint: Allergic Reaction Time Seen by Provider: 04/11/25 05:24 Source: patient and family Mode of arrival: ambulatory Limitations: no limitations History of Present Illness ED Provider: Dr. Ev Camargo HPI narrative: 54-year-old male with history of tobacco use, hypercholesterolemia presenting with continued urticaria that has been ongoing issue for the last 10 days or so. Patient was originally seen in this emergency department for cellulitis of the scalp. He was treated with antibiotics and reports after a week, his symptoms have not improved. States that he was seen again in this emergency department and diagnosed with an allergic reaction. Started on prednisone and has been taking that as prescribed. Admits that his symptoms are unchanged and he continues to have urticaria. The rash has started to spread slightly to his chest and back. No new exposures. No tick bites. No viral symptoms including cough or cold-type symptoms, fever, chest pain, difficulty breathing, abdominal pain, nausea, vomiting, diarrhea, STDs, rashes on the palms or soles. Related Data Home Medications ?Medication ?Instructions ?Recorded ?Confirmed aspirin 81 mg tablet 81 mg PO DAILY 05/29/20 02/09/25 multivitamin-ferrous 1 tab PO DAILY 10/18/20 02/09/25 fumarate-folic acid 18 mg-400 mcg tablet (Centrum) Previous Rx's ?Medication ?Instructions ?Recorded acetaminophen 500 mg tablet 1,000 mg (2 x 500 mg) PO Q6H PRN 09/01/24 (Tylenol Extra Strength) pain #30 tabs ibuprofen 600 mg tablet 600 mg PO Q6H PRN pain #30 tabs 09/01/24 cholecalciferol (vitamin D3) 50 50 mcg PO DAILY 90 days #90 caps 02/09/25 mcg (2,000 unit) capsule ezetimibe 10 mg tablet 10 mg PO DAILY 90 days #90 tabs 02/09/25 omeprazole 40 mg capsule,delayed 40 mg PO DAILY 90 days #90 caps 02/09/25 release pravastatin 40 mg tablet 40 mg PO DAILY 90 days #90 tabs 02/09/25 cetirizine 10 mg tablet (Zyrtec) 10 mg PO DAILY #90 tabs 04/08/25 epinephrine 0.3 mg/0.3 mL 0.3 mg (0.3 mL) IM Q10M 04/09/25 injection, auto-injector (EpiPen anaphylaxis #2 ea 2-Gabriel) prednisone 20 mg tablet 40 mg (2 x 20 mg) PO DAILY 5 days 04/09/25 #10 tabs Allergies Allergy/AdvReac Type Severity Reaction Status Date / Time rosuvastatin (Crestor) AdvReac Intermediate myalgias Verified 04/11/25 02:13 Review of Systems Review of Systems: as per HPI, full review of systems performed and negative but for the above mentioned pertinent positives and negatives. [facility] Past Medical History Medical History Diabetes mellitus Vitamin D deficiency Gastritis Tubular adenoma Pain in both feet Insomnia Overweight (BMI 25.0-29.9) Smoker Elevated blood pressure reading Allergic rhinitis Pure hypercholesterolemia Surgical History History of colonoscopy (~10/24/20) Hx of wisdom tooth extraction History of inguinal hernia repair History of vasectomy Family History Family History Father No problems noted. Mother No problems noted. Paternal Uncle History of stomach cancer Maternal Aunt Hx of breast cancer Son No problems noted. Social History Social History Household Members: Spouse and Children Housing: House Alcohol intake: current Alcohol intake frequency: holidays/special occasions only Alcohol type: hard liquor Patient Tobacco Use Status: Former Tobacco user Tobacco use type: Cigarette Cigarettes Per Day: 10 Years Smoked: 30 Smoked in Last 30 Days: No e-Cigarette/Vaping Use: Never Used Second Hand Smoke Exposure: Yes Use of substances other than those prescribed or required for medical reasons: No Advance Directives: No Advance Directives Information Provided: Yes service: No Current occupational status: employed Current occupation: [employer]/ right hand dominant Cognitive needs: No Hearing needs: No Vision needs: No Physical Exam Exam: Exam: GENERAL: Well-Appearing, conversant, no acute distress. SKIN: Normal skin color for ethnicity, warm, dry, urticarial rash noted to the occipital scalp, neck, upper chest and back, does not involve the palms or soles. HEENT:? Normocephalic, atraumatic, no stridor, posterior oropharynx nonerythematous, dentition intact, EOMI. NECK: Soft, supple, full ROM, midline structures nontender, no step-offs, no deformities, no lymphadenopathy. CHEST: Heart regular rate and rhythm, no murmurs, symmetric chest rise and fall. PULMONARY: Clear to auscultation bilaterally, no labored breathing, no wheezes/rhales/rhonchi. ABDOMINAL: Soft, nondistended, nontender, positive bowel sounds in all quadrants. : Deferred. MUSCULOSKELETAL: Normal tone, full range of motion, no deformities, no peripheral edema. NEURO: Alert and oriented x3, CN II through XII intact, equal strength and sensation bilateral upper and lower extremities, no focal neurologic deficits.? PSYCHIATRIC: Normal affect, fluid speech, good eye contact and appropriate demeanor. Vital Signs: Vital Signs: Last Vital Signs Temp 98.0 F 04/11/25 05:58 Pulse 69 04/11/25 05:58 Resp 16 04/11/25 05:58 BP 133/65 04/11/25 05:58 Pulse Ox 100 04/11/25 05:58 O2 Del Method Room Air 04/11/25 05:58 BMI result Body Mass Index 25.4 Medications Administered Discontinued Medications Generic Name Dose Route Start Last Admin Trade Name Freq PRN Reason Stop Dose Admin Diphenhydramine HCl 50 mg 04/11/25 05:44 04/11/25 05:54 Diphenhydramine Hcl 25 Mg Capsule PO 04/11/25 05:45 50 mg ONCE ONE Administration Famotidine 20 mg 04/11/25 05:44 04/11/25 05:54 Famotidine 20 Mg Tablet PO 04/11/25 05:45 20 mg ONCE ONE Administration Loratadine 10 mg 04/11/25 05:44 04/11/25 05:54 Loratadine 10 Mg Tablet PO 04/11/25 05:45 10 mg ONCE ONE Administration Medical Decision Making Medical Decision Making MDM Narrative: Patient presents today with chief complaint of rash. Differential diagnosis is broad. I considered diagnoses including all rashes that might represent some type of emergent pathology. The patient specifically does not have evidence of vesicles, blistering, petechiae or purpura, involvement of the palms, soles or mucous membranes. There has not been any introduction of new medications. Vital signs are normal. Systemically very well-appearing. Rash consistent with idiopathic urticaria. We had an extensive discussion about this. He has prescriptions for Epi pens, zyrtec and benadryl. We discussed antihitamine use as the mainstay of treatment for this. Emmieud follow up with an training representative as an outpatient. Using shared decision making, plan for discharge home to follow-up with primary care and/or specialist.? Patient understands and agrees with plan for discharge.? Discharged home in stable condition. Differential Diagnosis Differential Diagnoses: The differential diagnosis associated with the presentation includes (as above) Admission/Observation Consideration of admission/observation: Escalation of care including admission/observation considered Lab Data MDM Lab Attestation statement: I reviewed the patient's lab results. (previous ED visits) Independent Historian Clinical information obtained from an independent historian. History obtained from or confirmed by: Spouse External Record Review External record reviewed: Inpatient record Prescription Management I considered prescription management with: Other (antihistamines) Chronic Conditions Patient?s care impacted by: Other (hyperlipidemia, tobacco use) Discharge Plan Discharge Clinical Impression: Acute idiopathic urticaria Patient Disposition: Home, Self-Care Instructions: Urticaria (ED) Additional Instructions: Continue to use cetirizine 10 mg tablets 3 times a day for hives. You may also intermittently take Benadryl 50 mg every 8 hours. Additionally, you may add famotidine 20 mg up to 3 times a day as well. All of these medications or antihistamines and will help with a urticarial rash. If you develop any new or worsening symptoms including: Difficulty breathing, throat swelling, tongue swelling, vomiting, diarrhea, severe abdominal pain, chest pain or passing out you should return to the emergency department immediately as these are signs and symptoms of anaphylaxis. Prescriptions: No Action aspirin 81 mg Tablet 81 mg PO DAILY Centrum 18-400 mg-mcg Tablet 1 tab PO DAILY ibuprofen 600 mg tablet 600 mg PO Q6H PRN (Reason: pain) Qty: 30 0RF acetaminophen [Tylenol Extra Strength] 500 mg tablet 1,000 mg PO Q6H PRN (Reason: pain) Qty: 30 0RF prednisone 20 mg tablet 40 mg PO DAILY 5 Days Qty: 10 0RF epinephrine [EpiPen 2-Gabriel] 0.3 mg/0.3 mL auto-injector 0.3 mg IM Q10M Qty: 2 0RF Rx Instructions: for 2 doses ezetimibe 10 mg tablet 10 mg PO DAILY 90 Days Qty: 90 3RF pravastatin 40 mg tablet 40 mg PO DAILY 90 Days Qty: 90 3RF omeprazole 40 mg capsule,delayed release(DR/EC) 40 mg PO DAILY 90 Days Qty: 90 3RF cholecalciferol (vitamin D3) 50 mcg (2,000 unit) capsule 50 mcg PO DAILY 90 Days Qty: 90 3RF cetirizine [Zyrtec] 10 mg tablet 10 mg PO DAILY Qty: 90 3RF Interventions: ED Discharge Assessment Last Done: 04/11/25 05:58 Discharge Date/Time: 04/11/25 05:59 Print Language: Albanian
[2025-04-11 05:57] VITALS: BP 133/65; PULSE 69; RESP 16; TEMP 36.7; O2SAT 100
[2025-04-11 05:58] VITALS: BP 133/65; PULSE 69; RESP 16; TEMP 36.7; O2SAT 100
== END 2025-04-11 05:59 | disposition home or self-care (01) ==
PROVIDERS: Emergency Provider Emergency Medicine
DX: L50.9 Urticaria, unspecified (principal); R21 Rash and other nonspecific skin eruption
CPT/HCPCS: 99283; 99284